=== PATIENT | male | born 1945 | race Caucasian/White ===

== ENCOUNTER 2020-04-04 14:57 | Inpatient (IN) | payer MEDICARE, OTHER ==
[~2020-04-04] VITALS: Ht 172.7 cm; Wt 64.4 kg
--- NOTE | 2020-04-04 15:15 | NUR ---
SIDDHARTH FROM [facility] C/O SOB 70S ON ROOM AIR, 90S ON 15LPM VIA NRB. vs checked. hooked on monitor. iv access started. blood draw done. urine collected sent to lab.
[2020-04-04] MEDS ORDERED: AMLO-212 PO (15:52)
[2020-04-04] MEDS ORDERED: DOCU-141 PO (15:52)
[2020-04-04] MEDS ORDERED: THIA100T88 PO (15:52)
[2020-04-04] MEDS ORDERED: CHOL100040 PO (15:52)
[2020-04-04] MEDS ORDERED: HYDR-4384 PO (15:52)
[2020-04-04] MEDS ORDERED: ACET-868 PO (15:52)
[2020-04-04] MEDS ORDERED: ASCO-352 PO (15:52)
[2020-04-04] MEDS ORDERED: CARV6.252 PO (15:52)
[2020-04-04] MEDS ORDERED: IPRA4AER IH (15:52)
[2020-04-04] MEDS ORDERED: NA P133E RC (15:52)
[2020-04-04] MEDS ORDERED: ATOR10TA PO (15:52)
[2020-04-04] MEDS ORDERED: MAGN400O6 PO (15:52)
[2020-04-04] MEDS ORDERED: ALBU1.257 IH (15:52)
[2020-04-04] MEDS ORDERED: CLOP75TA15 PO (15:52)
[2020-04-04] MEDS ORDERED: PANT40TA2 PO (15:52)
[2020-04-04] MEDS ORDERED: HYDR-500 PO (15:52)
[2020-04-04] MEDS ORDERED: CRAN425C6 PO (15:52)
[2020-04-04] MEDS ORDERED: OMEG1CAP PO (15:52)
[2020-04-04] MEDS ORDERED: ASPI-1169 PO (15:52)
[2020-04-04] MEDS ORDERED: MULT-447 PO (15:52)
[2020-04-04] MEDS ORDERED: QUERCETIN DIHYDRATE PO (15:52)
[2020-04-04] MEDS ORDERED: LEVO500T90 PO (15:52)
[2020-04-04 16:06] LABS: BASOPHILS # (AUTO) 0.3 /CMM (0.0-0.2); BASOPHILS % (AUTO) 1.8 % (0.0-2.0); EOSINOPHILS % (AUTO) 1.5 % (0.0-6.0); HEMATOCRIT 34 % (39-51); HEMOGLOBIN 10.7 g/dL (13.5-17.5); LYMPHOCYTES % (AUTO) 6.8 % (20.0-44.0); MEAN CORPUSCULAR HGB CONC 31 g/dl (31.0-36.0); MEAN CORPUSCULAR VOLUME 86 fL (80-96); MONOCYTES # (AUTO) 0.9 /CMM (0.1-1.30); NEUTROPHILS # (AUTO) 12.7 /CMM (1.8-8.9); NEUTROPHILS % (AUTO) 83.9 % (43.0-81.0); PLATELET COUNT (AUTO) 359 /CMM (150-450); RED BLOOD CELL COUNT(AUTO) 3.96 MIL/uL (4.5-6.0); WHITE BLOOD COUNT (AUTO) 15.1 K/uL (4.3-11.0)
[2020-04-04 16:21] LABS: CALCIUM, SERUM 9.3 mg/dL (8.5-10.1); CARBON DIOXIDE 28 mmol/L (21-32); CHLORIDE 103 mmol/L (98-107); CREATININE 1.4 mg/dL (0.6-1.3); GLUCOSE 154 mg/dL (74-106); POTASSIUM 4.1 mmol/L (3.5-5.1); SODIUM SERUM 141 mmol/L (136-145); UREA NITROGEN, BLOOD 31 mg/dL (7-18)
[2020-04-04] MEDS ORDERED: CEFTRIAXONE 1GM BAG (ER ONLY) 1 GM/50 ML PIGGYBACK IV ONE (16:30)
[2020-04-04] MEDS ORDERED: AZITHROMYCIN 500 MG in IV D5W 250 ML IV ONE (16:30)
[2020-04-04 16:34] LABS: ALANINE AMINOTRANSFERASE 16 U/L (12-78); ALBUMIN 2.1 g/dL (3.4-5.0); ALKALINE PHOSPHATASE 69 U/L (46-116); ASPARTATE AMINOTRANSFERASE 14 U/L (15-37); B-TYPE NATRIURETIC PEPTIDE 609 PG/ML (0-125); BILIRUBIN,DIRECT 0.1 mg/dL (0.0-0.2); BILIRUBIN,TOTAL 0.3 mg/dL (0.2-1.0); TOTAL PROTEIN, SERUM 9.1 g/dL (6.4-8.2)
[2020-04-04 17:09] LABS: CREATINE KINASE, TOTAL 123 U/L (39-308); FERRITIN 798 ng/mL (8-388)
[2020-04-04 17:15] LABS: C-REACTIVE PROTEIN 14.4 mg/dL (0.0-0.9)
[2020-04-04 17:23] LABS: D-DIMER 5.22 mg/L(FEU (0.17-0.50)
--- NOTE | 2020-04-04 17:23 | NUR ---
DAUGHTER CARMITA MEDEROS [phone]
--- NOTE | 2020-04-04 19:05 | NUR ---
REC'D REPORT FROM APRIL PAYNE. PT BIBRA FROM SNF C/O SOB AND O2 IN THE 70S RA. PT ON 15L NRB 90S. PT APPEARS PALE WITH SOME SHORTNESS OF BREATH. PT PLACED IN AN UPRIGHT POSITION AND CONNECTED TO MONITOR AND POX. PT HAS LEFT HAND 18G AND RT AC 18G. PT MADE COMFORTABLE WITH BLANKET AND CALL LIGHT WITHIN REACH. WILL CONTINUE TO MONITOR.
--- NOTE | 2020-04-04 19:20 | NUR ---
report given to sherrill bernard for altagracia
--- NOTE | 2020-04-04 19:43 | NUR ---
covid swab and influenza swab done sent to lab
--- NOTE | 2020-04-04 19:43 | NUR ---
REC'D ORDERS FROM DR RUBALCAVA.
[2020-04-04] MEDS ORDERED: IV NS 0.9% 500 ML BAG IV ONE (20:00)
--- NOTE | 2020-04-04 20:28 | NUR ---
FOLLOWED UP WITH LAB ABOUT COVID SWAB COMPREHENSIVE ADVISOR
[2020-04-04] MEDS ORDERED: IV D5/ 0.9% NACL 1,000 ML IV ONE (21:00)
[2020-04-04] MEDS ORDERED: ENOXAPARIN SODIUM 40 MG/0.4 ML DISP.SYRIN SQ SCH (21:00)
[2020-04-04] MEDS ORDERED: PIPERACILLIN /TAZOBACTAM 3.375 G VIAL IV ONE (21:06)
[2020-04-04 21:26] LABS: BASOPHILS # (AUTO) 0.1 /CMM (0.0-0.2); BASOPHILS % (AUTO) 0.3 % (0.0-2.0); EOSINOPHILS % (AUTO) 0.6 % (0.0-6.0); HEMATOCRIT 31 % (39-51); HEMOGLOBIN 9.6 g/dL (13.5-17.5); LYMPHOCYTES # (AUTO) 0.8 /CMM (0.8-4.8); LYMPHOCYTES % (AUTO) 4.1 % (20.0-44.0); MEAN CORPUSCULAR HGB CONC 31 g/dl (31.0-36.0); MEAN CORPUSCULAR VOLUME 87 fL (80-96); MONOCYTES % (AUTO) 5.4 % (2.0-12.0); NEUTROPHILS # (AUTO) 16.8 /CMM (1.8-8.9); NEUTROPHILS % (AUTO) 89.6 % (43.0-81.0); PLATELET COUNT (AUTO) 289 /CMM (150-450); RED BLOOD CELL COUNT(AUTO) 3.57 MIL/uL (4.5-6.0); WHITE BLOOD COUNT (AUTO) 18.8 K/uL (4.3-11.0)
[2020-04-04 21:36] LABS: CALCIUM, SERUM 8.2 mg/dL (8.5-10.1); CREATININE 1.1 mg/dL (0.6-1.3); POTASSIUM 3.8 mmol/L (3.5-5.1)
[2020-04-04] MEDS: PANTOPRAZOLE 40 MG VIAL IV SCH (22:15)
[2020-04-04] MEDS: ZOSYN IVPB 3.375 G in IV D5W 50ml IV SCH (23:45)
[2020-04-05] MEDS ORDERED: PIPERACILLIN /TAZOBACTAM 3.375 G in IV D5W 50 ML IV SCH ×2
[2020-04-05] MEDS ORDERED: PIPERACILLIN /TAZOBACTAM 3.375 G VIAL IV ONE (06:00)
[2020-04-05] MEDS: ZOSYN IVPB 3.375 G in IV D5W 50ml IV SCH (06:15)
--- NOTE | 2020-04-05 07:22 | NUR ---
GAVE REPORT TO APRIL SANCHEZ FOR LOLITA
[2020-04-05] MEDS ORDERED: PANTOPRAZOLE 40 MG VIAL ONE (09:21)
[2020-04-05] MEDS: PANTOPRAZOLE 40 MG VIAL IV SCH (09:22)
[2020-04-05] MEDS ORDERED: NA PHOS,M-B/NA PHOS,DI-BA 1 EA ENEMA RC PRN (12:00)
[2020-04-05] MEDS ORDERED: MAGNESIUM HYDROXIDE 30 ML UDC PO PRN (12:00)
[2020-04-05] MEDS ORDERED: hydrOXYzine PAMOATE 25 MG CAPSULE PO PRN (12:00)
[2020-04-05] MEDS: PIPERACILLIN /TAZOBACTAM 3.375 G in IV D5W 100 ML IV SCH ×2 (14:30→21:03)
--- NOTE | 2020-04-05 14:35 | NUR ---
pt to radiology for ir guided percutaneuos drainage via gurney.
[2020-04-05] MEDS: CARVEDILOL 6.25 MG TABLET PO SCH (17:18)
[2020-04-05] MEDS: DOCUSATE SODIUM 100 MG CAPSULE PO SCH (17:18)
--- NOTE | 2020-04-05 19:35 | NUR ---
PT RESTING COMFORTABLY IN BED. VITAL SIGNS STABLE. RESPIRATIONS EVEN AND UNLABORED. STILL ON 15L NONREBREATHER, O2 SAT 100%. NO ACUTE DISTRESS NOTED AT THIS TIME. WILL CONTINUE TO MONITOR
--- NOTE | 2020-04-05 19:35 | NUR ---
report given to charge nurse martha for altagracia.
[2020-04-05] MEDS: ATORVASTATIN 10 MG TABLET PO SCH (21:01)
[2020-04-05] MEDS ORDERED: ATORVASTATIN 40 MG TABLET ONE (21:12)
[2020-04-06 03:55] LABS: BASOPHILS # (AUTO) 0.1 /CMM (0.0-0.2); BASOPHILS % (AUTO) 0.6 % (0.0-2.0); EOSINOPHILS % (AUTO) 7.3 % (0.0-6.0); HEMATOCRIT 31 % (39-51); HEMOGLOBIN 9.6 g/dL (13.5-17.5); LYMPHOCYTES # (AUTO) 1.9 /CMM (0.8-4.8); LYMPHOCYTES % (AUTO) 20.4 % (20.0-44.0); MEAN CORPUSCULAR HGB CONC 31 g/dl (31.0-36.0); MEAN CORPUSCULAR VOLUME 87 fL (80-96); MONOCYTES # (AUTO) 0.5 /CMM (0.1-1.30); MONOCYTES % (AUTO) 5.8 % (2.0-12.0); NEUTROPHILS # (AUTO) 6.1 /CMM (1.8-8.9); NEUTROPHILS % (AUTO) 65.9 % (43.0-81.0); PLATELET COUNT (AUTO) 293 /CMM (150-450); RED BLOOD CELL COUNT(AUTO) 3.51 MIL/uL (4.5-6.0); WHITE BLOOD COUNT (AUTO) 9.3 K/uL (4.3-11.0)
[2020-04-06 04:10] LABS: CALCIUM, SERUM 8.9 mg/dL (8.5-10.1); CREATININE 1.1 mg/dL (0.6-1.3); POTASSIUM 4.1 mmol/L (3.5-5.1)
[2020-04-06] MEDS: PIPERACILLIN /TAZOBACTAM 3.375 G in IV D5W 100 ML IV SCH ×3 (05:48→21:32)
--- NOTE | 2020-04-06 06:29 | NUR ---
pt was cleaned and dried. repositioned and mepilex applied on the sacrococcyx area. HOB elevated. remained on monitor w/ stable VS. will cont to monitor
[2020-04-06] MEDS ORDERED: PANTOPRAZOLE 40 MG VIAL ONE (08:19)
[2020-04-06] MEDS: CARVEDILOL 6.25 MG TABLET PO SCH ×2 (08:40→17:00)
[2020-04-06] MEDS: ASPIRIN 81 MG TAB.CHEW PO SCH (08:40)
[2020-04-06] MEDS: DOCUSATE SODIUM 100 MG CAPSULE PO SCH ×2 (08:40→17:00)
[2020-04-06] MEDS: PANTOPRAZOLE 40 MG VIAL IV SCH (08:40)
[2020-04-06] MEDS: THIAMINE HCL 100 MG TABLET PO SCH (08:41)
[2020-04-06] MEDS: ASCORBIC ACID 500 MG TABLET PO SCH (08:41)
[2020-04-06] MEDS: AMLODIPINE BESYLATE 5 MG TABLET PO SCH (08:41)
[2020-04-06] MEDS ORDERED: CLOPIDOGREL BISULFATE 75 MG TABLET PO SCH (09:00)
--- NOTE | 2020-04-06 12:25 | NUR ---
SPOKE TO DR. MARTINEZ, SPEECH THERAPIST RECOMMEND NPO FOR FOOD DUE TO PATIENT BEING ON A NRB MASK, AND PATIENT DESATS TO 80S WHEN REMOVED. NECTAR THICK LIQUID TO BE MIXED WITH WATER. RECEIVED ORDER FROM DR. MARTINEZ TO GIVE NS 75@ML/HR PRN.
--- NOTE | 2020-04-06 12:51 | NUR ---
patient came back from CT.
--- NOTE | 2020-04-06 13:13 | NUR ---
RIGHT PLEURAL SPECIMEN SENT TO LAB.
[2020-04-06] MEDS: IV NS 0.9% 1,000 ML IV PRN (13:57)
--- NOTE | 2020-04-06 14:17 | NUR ---
PATIENT RESTING, NO DISTRESS NOTED, VITALS STABLE. PLEURAL VAC IN PLACED AND DRAINING.
--- NOTE | 2020-04-06 19:22 | NUR ---
PATIENT RESTING, NO DISTRESS NOTED.
--- NOTE | 2020-04-06 19:30 | NUR ---
rec'd pt in bed, on non rbr 15l, sat 96-98%, not in any distress, denies any sob. pt on thickened liquids for aspiration precaution. vsbhaskar, eddie. wctm
[2020-04-06] MEDS: ATORVASTATIN 10 MG TABLET PO SCH (21:31)
[2020-04-07] MEDS: PIPERACILLIN /TAZOBACTAM 3.375 G in IV D5W 100 ML IV SCH ×3 (06:38→21:42)
--- NOTE | 2020-04-07 07:16 | NUR ---
no acute events noted. cont meds as ordered. -sob. vss. wctm
[2020-04-07] MEDS: ASPIRIN 81 MG TAB.CHEW PO SCH (08:02)
[2020-04-07] MEDS: ASCORBIC ACID 500 MG TABLET PO SCH (08:02)
[2020-04-07] MEDS: THIAMINE HCL 100 MG TABLET PO SCH (08:02)
[2020-04-07] MEDS: DOCUSATE SODIUM 100 MG CAPSULE PO SCH ×2 (08:02→17:24)
[2020-04-07] MEDS: AMLODIPINE BESYLATE 5 MG TABLET PO SCH (08:03)
[2020-04-07] MEDS: CARVEDILOL 6.25 MG TABLET PO SCH ×3 (08:03→18:03)
--- NOTE | 2020-04-07 08:03 | NUR ---
PATIENT A/OX2, ON 15LPM VIA NRB WITH SPO2 OF 100%, WILL ATTEMPT TO WEAN PATIENTS OXYGEN, STILL NPO AT THIS TIME, THICK LIQUIDS ONLY FOR ORAL GRAT. NEEDS ATTENDED. PLEURAL VAC INTACT AND DRAINING.
[2020-04-07] MEDS ORDERED: PANTOPRAZOLE 40 MG VIAL ONE (08:28)
[2020-04-07] MEDS: PANTOPRAZOLE 40 MG VIAL IV SCH (09:04)
--- NOTE | 2020-04-07 09:09 | NUR ---
PATIENT NOTED TO HAVE AN OUTPUT OF 35CC ON HIS PLEURAL VAC. PERICARE PROVIDED, PATIENT ABLE TO TURN HIMSELF WITH PROMPT.
--- NOTE | 2020-04-07 10:19 | NUR ---
PATIENT SEEN AND EXAMINED BY DR. MUNGUIA. PATIENT TITRATED DOWN TO 6LPM VIA NC WITH SPO2 OF 95-96%. PATIENT APPEARS TO BE MORE COMFORTABLE.
[2020-04-07] MEDS ORDERED: CLOPIDOGREL BISULFATE 75 MG TABLET ONE (13:22)
[2020-04-07] MEDS: CLOPIDOGREL BISULFATE 75 MG TABLET PO SCH (13:24)
[2020-04-07] MEDS ORDERED: HYDROCODONE/APAP 5/325MG TABLET ONE ×2 (13:58→23:45)
[2020-04-07] MEDS: HYDROCODONE/APAP 5/325MG TABLET PO PRN ×2 (14:00→23:56)
--- NOTE | 2020-04-07 15:20 | NUR ---
PATIENT NOTED TO HAVE ADDITIONAL 50CC OF OUTPUT ON PLEURA VAC.
--- NOTE | 2020-04-07 16:36 | NUR ---
PATIENT TOLERATING 6LPM VIA NC, PULSE OX SHOWS 95%.PATIENT ABLE TO TOLERATE CRUSHED MEDS WITH APPLE SAUCE. NO S/SX OF ASPIRATION NOTED.
[2020-04-07] MEDS ORDERED: CARVEDILOL 6.25 MG TABLET ONE (17:20)
--- NOTE | 2020-04-07 17:38 | NUR ---
PATIENT NOTED TO HAVE LOW O2 SAT (80S) WHILE SLEEPING WITH THE NASAL CANNULA. PLACED BACK ON 15LPM VIA NRB MASK WITH SPO2 OF 90% AT THIS TIME.
--- NOTE | 2020-04-07 18:03 | NUR ---
PATIENT'S PULSE OX MONITOR NOTED TO BE OFF THE PATIENT, PATIENT PLACED BACK ON 6LPM VIA NC WITH SPO2 OF 99%. NO DISTRESS NOTED. NEEDS ATTENDED. PERICARE PROVIDED AND PROMPTED TO TURN. PLEURA VAC STILL INTACT AND DRAINING WELL.
--- NOTE | 2020-04-07 19:30 | NUR ---
REC'D PT IN BED AWAKE AND RESPONSIVE. BREATHING EVENLY . ON SUPPLEMENTAL O2 VIA NC. CHATO WELL. NO C/O SOB. NO C/O PAIN OR DISCOMFORT .S/P THORACENTHESIS W/ NO COMPLICATIONS AT THIS TIME. REMAINED ON MONITOR,
[2020-04-07] MEDS: ATORVASTATIN 10 MG TABLET PO SCH (21:42)
--- NOTE | 2020-04-07 23:56 | NUR ---
NORCO GIVE ORDERED . PER PT'S REQUEST FOR C/O PAIN . WILL CONT TO MONITOR
[2020-04-08] MEDS: IV NS 0.9% 1,000 ML IV PRN (00:42)
[2020-04-08] MEDS: PIPERACILLIN /TAZOBACTAM 3.375 G in IV D5W 100 ML IV SCH ×3 (04:33→22:13)
--- NOTE | 2020-04-08 05:58 | NUR ---
pt was cleaned and dried/ good skin care and pericare provided . repositioned .will cont to monitor
[2020-04-08 06:20] LABS: BASOPHILS # (AUTO) 0.1 /CMM (0.0-0.2); EOSINOPHILS % (AUTO) 5.7 % (0.0-6.0); HEMATOCRIT 32 % (39-51); LYMPHOCYTES # (AUTO) 1.8 /CMM (0.8-4.8); LYMPHOCYTES % (AUTO) 26.1 % (20.0-44.0); MEAN CORPUSCULAR HGB CONC 32 g/dl (31.0-36.0); MEAN CORPUSCULAR VOLUME 86 fL (80-96); MONOCYTES # (AUTO) 0.4 /CMM (0.1-1.30); MONOCYTES % (AUTO) 5.8 % (2.0-12.0); NEUTROPHILS # (AUTO) 4.3 /CMM (1.8-8.9); NEUTROPHILS % (AUTO) 61.4 % (43.0-81.0); PLATELET COUNT (AUTO) 277 /CMM (150-450); RED BLOOD CELL COUNT(AUTO) 3.68 MIL/uL (4.5-6.0)
[2020-04-08 06:27] LABS: CALCIUM, SERUM 8.9 mg/dL (8.5-10.1); CARBON DIOXIDE 26 mmol/L (21-32); CHLORIDE 105 mmol/L (98-107); CREATININE 0.8 mg/dL (0.6-1.3); GLUCOSE 64 mg/dL (74-106); MAGNESIUM 1.9 mg/dL (1.8-2.4); POTASSIUM 3.9 mmol/L (3.5-5.1); SODIUM SERUM 140 mmol/L (136-145); UREA NITROGEN, BLOOD 11 mg/dL (7-18)
--- NOTE | 2020-04-08 06:33 | NUR ---
report given to Analisa at [facility]
--- NOTE | 2020-04-08 06:58 | NUR ---
pt was transferred to 102 under acls
[2020-04-08 08:00] VITALS: BP 133/81
--- NOTE | 2020-04-08 08:00 | NUR ---
RECEIVED PATIENT IN BED. NO ACUTE DISTRESS NOTED. PATIENT ALERT & ORIENTED X2-3. PATIENT ON NASAL CANULA, 4L SATURATING WELL. PATIENT ON COMBINER OPERATOR, NSR NOTED. PATIENT L HAND #18 INTACT, FLUSHED WELL. PATIENT SAFETY MEASURES MAINTAINED. CALL LIGHT WITHIN REACH. WILL CONTINUE TO MONITOR.
[2020-04-08] MEDS: THIAMINE HCL 100 MG TABLET PO SCH (09:00)
[2020-04-08] MEDS: DOCUSATE SODIUM 100 MG CAPSULE PO SCH ×2 (09:00→16:14)
[2020-04-08] MEDS: CLOPIDOGREL BISULFATE 75 MG TABLET PO SCH (09:00)
[2020-04-08] MEDS: AMLODIPINE BESYLATE 5 MG TABLET PO SCH (09:00)
[2020-04-08] MEDS: ASCORBIC ACID 500 MG TABLET PO SCH (09:00)
[2020-04-08] MEDS: ASPIRIN 81 MG TAB.CHEW PO SCH (09:00)
[2020-04-08] MEDS: CARVEDILOL 6.25 MG TABLET PO SCH ×2 (09:00→16:14)
[2020-04-08] MEDS: PANTOPRAZOLE 40 MG VIAL IV SCH (09:39)
[2020-04-08 12:00] VITALS: BP 137/80
--- NOTE | 2020-04-08 12:03 | NUR ---
[phone] notified re; patient's chest tube reassess stated that will see him tomorrow per requested
[2020-04-08 16:00] VITALS: BP 130/81
--- NOTE | 2020-04-08 18:21 | NUR ---
PATIENT IN BED. NO ACUTE DISTRESS NOTED. PATIENT ALERT & ORIENTED X2-3. PATIENT ON NASAL CANULA, 4L SATURATING WELL. PATIENT ON TRACK ANNOUNCER, NSR NOTED. PATIENT CHEST TUBE IN PLACE ON RIGHT SIDE, CONNECTED TO SUCTION. PATIENT L HAND #18 INTACT, FLUSHED WELL. PATIENT SAFETY MEASURES MAINTAINED. CALL LIGHT WITHIN REACH. WILL ENDORSE PLAN OF CARE TO ONCOMING SHIFT
[2020-04-08 20:00] VITALS: BP 136/83
[2020-04-08] MEDS: ATORVASTATIN 10 MG TABLET PO SCH (22:06)
[2020-04-09] VITALS: BP 115/80
[2020-04-09] MEDS: IV NS 0.9% 1,000 ML IV PRN ×2 (01:52→17:03)
[2020-04-09 04:00] VITALS: BP 120/79
[2020-04-09] MEDS: PIPERACILLIN /TAZOBACTAM 3.375 G in IV D5W 100 ML IV SCH ×3 (05:18→21:10)
[2020-04-09 06:43] LABS: BASOPHILS # (AUTO) 0.1 /CMM (0.0-0.2); EOSINOPHILS % (AUTO) 4.3 % (0.0-6.0); HEMATOCRIT 30 % (39-51); HEMOGLOBIN 9.6 g/dL (13.5-17.5); LYMPHOCYTES % (AUTO) 29.3 % (20.0-44.0); MEAN CORPUSCULAR HGB CONC 32 g/dl (31.0-36.0); MEAN CORPUSCULAR VOLUME 86 fL (80-96); MONOCYTES # (AUTO) 0.5 /CMM (0.1-1.30); MONOCYTES % (AUTO) 6.9 % (2.0-12.0); NEUTROPHILS # (AUTO) 3.9 /CMM (1.8-8.9); NEUTROPHILS % (AUTO) 58.5 % (43.0-81.0); PLATELET COUNT (AUTO) 271 /CMM (150-450); RED BLOOD CELL COUNT(AUTO) 3.56 MIL/uL (4.5-6.0); WHITE BLOOD COUNT (AUTO) 6.7 K/uL (4.3-11.0)
[2020-04-09 06:58] LABS: CALCIUM, SERUM 8.4 mg/dL (8.5-10.1); CARBON DIOXIDE 24 mmol/L (21-32); CHLORIDE 104 mmol/L (98-107); CREATININE 0.8 mg/dL (0.6-1.3); GLUCOSE 68 mg/dL (74-106); POTASSIUM 2.9 mmol/L (3.5-5.1); SODIUM SERUM 142 mmol/L (136-145); UREA NITROGEN, BLOOD 8 mg/dL (7-18)
--- NOTE | 2020-04-09 07:03 | NUR ---
IV ACCESS IN RAC DISLODGED, PRESSURE APPLIED, SECURED WITH GAUZE AND TAPE. NO SIGN OF BLEEDING OR INFILTRATION NOTED. WILL CONTINUE TO MONITOR
--- NOTE | 2020-04-09 07:03 | NUR ---
RN OPENING NOTES RECEIVED PT AWAKE AT THIS TIME. PT IS ALERT ORIENTED X3. NO SOB NOTED, NO S/S OF ANY APPARENT DISTRESS NOTED. NO C/O PAIN NOTED AT THIS TIME. RESPIRATIONS ARE EVEN AND UNLABORED WITH EQUAL RISE AND FALL IN CHEST. PT NOTED ON OXYGEN 4LPM VIA NC. PT ON EXTERNAL COMMERCIAL INTERIOR DESIGNER READING SR IN THE 60s. RIGHT CHEST TUBE NOTED WITH NO OUTPUT. IV ACCESS NOTED IN LEFT HAND G#18, INTACT, PATENT AND FLUSHING WELL. ASPIRATION AND SAFETY PRECAUTION IN PLACE AND MAINTAINED AT ALL TIMES. BED IN LOWEST LOCKED POSITION, HOB ELEVATED, SIDE RAILS UP X 2, CALL LIGHT AND TABLE WITHIN REACH. WILL CONTINUE TO MONITOR
[2020-04-09 08:00] VITALS: BP 133/82
[2020-04-09] MEDS: AMLODIPINE BESYLATE 5 MG TABLET PO SCH (09:00)
[2020-04-09] MEDS: CLOPIDOGREL BISULFATE 75 MG TABLET PO SCH (09:00)
[2020-04-09] MEDS: ASPIRIN 81 MG TAB.CHEW PO SCH (09:00)
[2020-04-09] MEDS: ASCORBIC ACID 500 MG TABLET PO SCH (09:00)
[2020-04-09] MEDS: THIAMINE HCL 100 MG TABLET PO SCH (09:00)
[2020-04-09] MEDS: CARVEDILOL 6.25 MG TABLET PO SCH ×2 (09:00→16:57)
[2020-04-09] MEDS: DOCUSATE SODIUM 100 MG CAPSULE PO SCH ×2 (09:00→16:57)
[2020-04-09] MEDS ORDERED: POTASSIUM CL. PREMIX PERIPHER. 50 ML IV SCH (09:30)
[2020-04-09] MEDS: PANTOPRAZOLE 40 MG VIAL IV SCH (09:58)
[2020-04-09] MEDS: POTASSIUM CHLORIDE 10 MEQ/50 ML PREMIXED IVPB FOR PERIPHERAL LINE IV SCH ×2 (09:58→11:02)
[2020-04-09 12:00] VITALS: BP 112/79
[2020-04-09 16:00] VITALS: BP 121/76
--- NOTE | 2020-04-09 18:34 | NUR ---
RN CLOSING NOTES PT AWAKE IN BED AT THIS TIME. PT REMAINED STABLE THROUGHOUT SHIFT. ALL CARE, NEED, MEDICATIONS AND TREATMENT ADMINISTERED ANTICIPATED PER ORDER. PT KEPT CLEAN AND DRY. PT REPOSITIONED Q2HR AND PRN. CHEST TUBE CARE PROVIDED. PT SUCTIONED PRN. ASPIRATION AND SAFETY PRECAUTION IN PLACE AND MAINTAINED AT ALL TIMES. BED IN LOWEST LOCKED POSITION, HOB ELEVATED, SIDE RAILS UP X 2, CALL LIGHT AND TABLE WITHIN REACH. WILL ENDORSE TO PANEL SAW OPERATOR NURSE FOR LOLITA
--- NOTE | 2020-04-09 19:48 | NUR ---
RN NOTES PATIENT A/O X3. NO SOB NOTED, NO S/S OF ANY APPARENT DISTRESS NOTED. DENIES ANY PAIN AT THIS TIME. PT NOTED ON OXYGEN 4LPM VIA NC. TELE MONITOR ON, SR IN THE 60s. RIGHT CHEST TUBE NOTED PATENT AND INTACT. IV ACCESS NOTED IN LEFT HAND G#18, INTACT, PATENT AND FLUSHING WELL. ASPIRATION AND SAFETY PRECAUTION IN PLACE AND MAINTAINED AT ALL TIMES. BED LOCKED AND IN LOWEST POSITION. CALL LIGHT WITHIN REACH. WILL CONTINUE TO MONITOR.
[2020-04-09 20:00] VITALS: BP 132/75
[2020-04-09] MEDS: ATORVASTATIN 10 MG TABLET PO SCH (21:10)
--- NOTE | 2020-04-09 22:30 | NUR ---
TRANSFERRED PATIENT TO ROOM 310, A/O X2-3. NO SOB OR ANY RESPIRATORY DISTRESS. GAVE REPORT TO JAMI FOR LOLITA.
[2020-04-10] MEDS: HYDROCODONE/APAP 5/325MG TABLET PO PRN (03:10)
[2020-04-10] MEDS: PIPERACILLIN /TAZOBACTAM 3.375 G in IV D5W 100 ML IV SCH ×3 (05:15→20:45)
[2020-04-10 06:42] LABS: CALCIUM, SERUM 8.3 mg/dL (8.5-10.1); CREATININE 0.8 mg/dL (0.6-1.3)
[2020-04-10 06:53] LABS: POTASSIUM 2.8 mmol/L (3.5-5.1)
--- NOTE | 2020-04-10 07:12 | NUR ---
At 2200Pm resident transferred From [facility] unit [facility] Chest Tube, DX: Pneumonia, Alert x 3. At 0700Am Lab Reported Potassium Level 2.8, Endorsed To Next Shift.
[2020-04-10 08:00] VITALS: BP 102/61
[2020-04-10] MEDS: AMLODIPINE BESYLATE 5 MG TABLET PO SCH (09:00)
--- NOTE | 2020-04-10 10:30 | NUR ---
dr. spears in,requesting rn contact dr. rivero to add tpa to chest tube.rn contacted dr. rivero immediately.
[2020-04-10] MEDS: PANTOPRAZOLE 40 MG TABLET.DR PO SCH (10:54)
[2020-04-10] MEDS: ASCORBIC ACID 500 MG TABLET PO SCH (10:54)
[2020-04-10] MEDS: ASPIRIN 81 MG TAB.CHEW PO SCH (10:54)
[2020-04-10] MEDS: CLOPIDOGREL BISULFATE 75 MG TABLET PO SCH (10:54)
[2020-04-10] MEDS: THIAMINE HCL 100 MG TABLET PO SCH (10:55)
[2020-04-10] MEDS: CARVEDILOL 6.25 MG TABLET PO SCH ×2 (10:55→16:58)
[2020-04-10] MEDS: DOCUSATE SODIUM 100 MG CAPSULE PO SCH ×2 (10:57→16:57)
[2020-04-10] MEDS: POTASSIUM CHLORIDE 20 MEQ TAB.PRT.SR PO SCH ×3 (10:59→13:58)
--- NOTE | 2020-04-10 13:30 | NUR ---
dr. rivero in and states he flushed chest tube with saline only.states he will contact dr. spears and inform him.
[2020-04-10 16:00] VITALS: BP 110/72
--- NOTE | 2020-04-10 18:03 | NUR ---
no chg. in status.
[2020-04-10] MEDS: IV NS 0.9% 1,000 ML IV PRN (19:10)
[2020-04-10 20:00] VITALS: BP 135/79
--- NOTE | 2020-04-10 20:00 | NUR ---
TELE MARKETER INITIAL NOTES PATIENT SEEN IN BED AWAKE AND A/O X3. NO SOB NOTED, NO S/S OF ANY APPARENT DISTRESS NOTED. DENIES ANY PAIN AT THIS TIME. PT NOTED ON OXYGEN 4LPM VIA NC. TELE MONITOR ON, SR IN THE 77, RIGHT CHEST TUBE NOTED PATENT AND INTACT. IV FLUID INFUSING ON HIS RIGHT FOREARM INTACT, PATENT AND FLUSHING WELL. ASPIRATION AND SAFETY PRECAUTION IN PLACE AND MAINTAINED AT ALL TIMES. BED LOCKED AND IN LOWEST POSITION. CALL LIGHT WITHIN REACH. WILL CONTINUE TO MONITOR.
[2020-04-10] MEDS: ATORVASTATIN 10 MG TABLET PO SCH (22:32)
[2020-04-11] VITALS: BP_SYST 123; BP_SYST 128; BP_DIAS 60; BP_DIAS 71
[2020-04-11 04:00] VITALS: BP 130/72
[2020-04-11] MEDS: PIPERACILLIN /TAZOBACTAM 3.375 G in IV D5W 100 ML IV SCH ×3 (05:22→21:23)
--- NOTE | 2020-04-11 07:30 | NUR ---
TELE LASTING MACHINE OPERATOR CLOSING NOTES' MORNING CARE DONE AND PT BACK TO REST . NO SIGNS OF ANY DISCOMFORT AND ANY ACUTE DISTRESS NOTED . ALL DUE MEDS GIVEN AND ALL NEEDS MET. BLOODS SUGAR CHECKED DONE 173, 3 UNITS OF INSULIN GIVEN NILS SQ ORDERED. KEPT HIM WARM AND COMFORTABLE AT ALL TIMES. WILL ENDORSE TO AM NURSE FOR CONTINUITY OF CARE. PLACE CALL LIGHT AT REACH. Addendum: 04/11/20 at 0822 by DIMA HERNANDEZ LVN DISREGARD BELONGS TO DIFF. PT
[2020-04-11 07:48] LABS: CALCIUM, SERUM 8.4 mg/dL (8.5-10.1); CREATININE 0.8 mg/dL (0.6-1.3); POTASSIUM 3.3 mmol/L (3.5-5.1)
--- NOTE | 2020-04-11 07:50 | NUR ---
TELE CHANGE CONTROL COORDINATOR CLOSING NOTES' PT BACK TO SLEEP AFTER MORNING CARE DONE. NOT IN ANY ACUTE DISTRESS NOTED. ALL DUE MEDS GIVEN. CHEST TUBE STILL INTACT . PT DENIES ANY PAIN OR ANY DISCOMFORT. KEPT HIM WARM AND COMFORTABLE AT ALL TIMES. STABLE TROUGHOUT THE NIGHT. ENDORSE TO AM NURSE. PLACE CALL LIGHT AT REACH.
--- NOTE | 2020-04-11 07:55 | NUR ---
MS/RN Opening note Patient received from manager shift. Sleeping soundly at this time, appears in no distress or discomfort. IV fluids infusing via right forearm 22g, no signs of infiltration seen. Chest tube noted to right lung, drainage noted to be at 450ml at start of shift, drainage canister marked. Safety measures in place, bed in low setting, side rails X3 in upright position. Bed alarm switched on, call light within reach. Will continue to monitor and ensure safety.
[2020-04-11 08:00] VITALS: BP 115/74
--- NOTE | 2020-04-11 09:00 | NUR ---
MS/RN Medications Morning medications administered as ordered.
[2020-04-11] MEDS: ASCORBIC ACID 500 MG TABLET PO SCH (09:03)
[2020-04-11] MEDS: DOCUSATE SODIUM 100 MG CAPSULE PO SCH ×2 (09:05→17:17)
[2020-04-11] MEDS: ASPIRIN 81 MG TAB.CHEW PO SCH (09:05)
[2020-04-11] MEDS: AMLODIPINE BESYLATE 5 MG TABLET PO SCH (09:05)
[2020-04-11] MEDS: PANTOPRAZOLE 40 MG TABLET.DR PO SCH (09:07)
[2020-04-11] MEDS: CLOPIDOGREL BISULFATE 75 MG TABLET PO SCH (09:07)
[2020-04-11] MEDS: CARVEDILOL 6.25 MG TABLET PO SCH ×2 (09:07→17:18)
[2020-04-11] MEDS: THIAMINE HCL 100 MG TABLET PO SCH (09:07)
--- NOTE | 2020-04-11 09:30 | NUR ---
MS/RN S/B Dr Hernandez Seen by Dr Hernandez - to follow up with thoracic surgeons regarding possible removal of chest tube.
[2020-04-11] MEDS: POTASSIUM CL. PREMIX PERIPHER. 50 ML IV SCH ×2 (09:41→10:21)
--- NOTE | 2020-04-11 11:01 | NUR ---
MS/RN Labs Morning labs reviewed: -Na 138 -K+ 3.3 -BUN 6.0 -Creat 0.8 Addendum: 04/11/20 at 1105 by MATTY BERGERON Potassium repalced with 2gm IVAP
[2020-04-11 12:00] VITALS: BP 101/63
--- NOTE | 2020-04-11 14:00 | NUR ---
MS/RN S/B Dr Mulligan Seen by Dr Mulligan - continue with plavix, lovenox and IVAB. Await final culture results.
[2020-04-11 16:00] VITALS: BP 98/62
[2020-04-11] MEDS ORDERED: ALTEPLASE CATHFLO 2 MG/VIAL IV ONE (16:00)
--- NOTE | 2020-04-11 17:16 | NUR ---
MS/RN S/B Dr Carpenter Seen by Dr Carpenter - chest tube clamped, 10mg alteplase in 30ml normal saline injected into pleural space. Chest tube to be unclamped at 2230.
--- NOTE | 2020-04-11 18:30 | NUR ---
MS/RN End note Patient remains in stable condition. Chest tube remains in place, no further output noted. Chest tube remains clamped, clamp to be removed at 2230. Does not appear to be in any pain or distress. Will endorse to date night sitter.
--- NOTE | 2020-04-11 19:30 | NUR ---
TELE HOUSE SUPERINTENDENT INITIAL NOTES RECEIVED REPORT FROM AM NURSE AND CHECKED THE PT AT THE SAME TIME. HE'S RESTING AT THIS TIME. STILL ON IVF INFUSING AND RIGHT CHEST TUBE THAT IS CLAMPED AT THIS TIME AND PER AM NURSE NEEDS TO UN CLAMP AT 1030 PM. NO SIGNS OF ANY ACUTE DISTRESS NOTED. SKIN WARM TO TOUCH. KEPT HIM WARM AND COMFORTABLE AT ALL TIMES. PLACE CALL LIGHT AT REACH. WILL CONTINUE MONITORING.
[2020-04-11 20:00] VITALS: BP 113/64
[2020-04-11] MEDS: ATORVASTATIN 10 MG TABLET PO SCH (22:05)
[2020-04-11] MEDS: IV NS 0.9% 1,000 ML IV PRN (23:09)
--- NOTE | 2020-04-12 | NUR ---
janitor supervisor notes pt sleeping comfortably in bed without any distress noted.Zosyn IVP bag still infusing, no adverse reaction noted. Chest tube intact and unclamped . kept him warm and comfortable at all times. will continue monitoring.
[2020-04-12 04:00] VITALS: BP 113/64
[2020-04-12] MEDS: PIPERACILLIN /TAZOBACTAM 3.375 G in IV D5W 100 ML IV SCH ×3 (04:44→21:56)
--- NOTE | 2020-04-12 07:27 | NUR ---
MS/RN Opening note Patient received from manager disaster recovery. Sleeping soundly at this time, appears in no distress or discomfort. Chest tube to wall suction noted on right side, drainage at start of shift 500ml. Chest tube container marked. IV fluids infusing at 75ml/hr via right forearm, no signs of infiltration seen. Safety measures in place, bed in low setting, side rails X3 in upright position, bed alarm switched on. Call light within reach, will continue to monitor and ensur safety.
[2020-04-12 08:00] VITALS: BP 104/65
[2020-04-12] MEDS: ASPIRIN 81 MG TAB.CHEW PO SCH (08:14)
[2020-04-12] MEDS: CLOPIDOGREL BISULFATE 75 MG TABLET PO SCH (08:14)
[2020-04-12] MEDS: PANTOPRAZOLE 40 MG TABLET.DR PO SCH (08:14)
[2020-04-12] MEDS: DOCUSATE SODIUM 100 MG CAPSULE PO SCH ×2 (08:15→16:49)
[2020-04-12] MEDS: ASCORBIC ACID 500 MG TABLET PO SCH (08:15)
[2020-04-12] MEDS: CARVEDILOL 6.25 MG TABLET PO SCH ×2 (08:17→16:49)
[2020-04-12] MEDS: AMLODIPINE BESYLATE 5 MG TABLET PO SCH (08:17)
[2020-04-12] MEDS: THIAMINE HCL 100 MG TABLET PO SCH (08:20)
--- NOTE | 2020-04-12 09:00 | NUR ---
MS/RN Medications Morning medications administered as ordered.
--- NOTE | 2020-04-12 11:30 | NUR ---
MS/RN S/B Dr Hernandez Seen by Dr Hernandez - await for chest tube removal and then discharge planning back to SNF.
--- NOTE | 2020-04-12 14:30 | NUR ---
MS/RN Dr Carpenter Order entered by Dr Carpenter for CT chest without contrast.
--- NOTE | 2020-04-12 15:13 | NUR ---
MS/RN CT Patient taken to radiology for CT chest without contrast. Chest tube clamped.
[2020-04-12 16:00] VITALS: BP 115/73
[2020-04-12 18:15] VITALS: BP 115/73
--- NOTE | 2020-04-12 19:22 | NUR ---
MS/ RN CLOSING NOTES PT RESTING IN BED COMFORTABLY. PT CALM AND COOPERATIVE. NO COMPLAINTS OF DISCOMFORT OR DISTRESS. NO SIGNIFICANT CHANGES. PT IN LOW FOWLERS POSITION. BED IS PLACED ON LOWEST POSITION WITH BED ALARM ON. CALL LIGHT IS WITHIN REACH. CHEST TUBE DRAINAGE AT 570 ML. WILL ENDORSE TO CASE FOLDER. WILL CONTINUE PLAN OF CARE.
[2020-04-12 20:00] VITALS: BP 100/62
[2020-04-12] MEDS: ATORVASTATIN 10 MG TABLET PO SCH (21:56)
--- NOTE | 2020-04-12 22:11 | NUR ---
ENGINEERING SPECIALIST NOTES PATENT IN BED, RESTING, ALERT AND ORIENTED X 2-3. BREATHING EVEN AND UNLABORED ON 2L NC. SHOWS NO SIGNS OF ACUTE RESPIRATORY DISTRESS, NO ACUTE PAIN. TELE MONITOR SR/ST. R CHEST TUBE INTACT SUCTIONING RED THICK FLUID. IV ON RA 22G RUNNING NS AT 75ML/HR. SHOWS NO INFILTRATION, NO REDNESS. SAFETY PRECAUTIONS IN PLACE. BED IN LOWEST POSITION, LOCKED, AND CALL LIGHT KEPT WITHIN REACH. WILL CONTINUE TO MONITOR.
[2020-04-13] MEDS: HYDROCODONE/APAP 5/325MG TABLET PO PRN ×2 (03:08→19:57)
[2020-04-13] MEDS: IV NS 0.9% 1,000 ML IV PRN (03:14)
[2020-04-13] MEDS: PIPERACILLIN /TAZOBACTAM 3.375 G in IV D5W 100 ML IV SCH ×3 (04:11→21:30)
--- NOTE | 2020-04-13 06:49 | NUR ---
PHOTO LAB SPECIALIST NOTES PATENT IN BED, ASLEEP, ALERT AND ORIENTED X 2-3. BREATHING EVEN AND UNLABORED ON 2L NC. SHOWS NO SIGNS OF ACUTE RESPIRATORY DISTRESS, NO ACUTE PAIN. TELE MONITOR SR/ST. R CHEST TUBE INTACT SUCTIONING GREENISH THICK FLUID. IV ON RA 22G RUNNING NS AT 75ML/HR. SHOWS NO INFILTRATION, NO REDNESS. ALL DUE MEDICATIONS GIVEN. ALL NEEDS ATTENDED TO. SAFETY PRECAUTIONS IN PLACE. BED IN LOWEST POSITION, LOCKED, AND CALL LIGHT KEPT WITHIN REACH. WILL ENDORSE TO ONCOMING NURSE.
[2020-04-13] MEDS: CLOPIDOGREL BISULFATE 75 MG TABLET PO SCH (08:17)
[2020-04-13] MEDS: PANTOPRAZOLE 40 MG TABLET.DR PO SCH (08:17)
[2020-04-13] MEDS: AMLODIPINE BESYLATE 5 MG TABLET PO SCH (08:17)
[2020-04-13] MEDS: ASPIRIN 81 MG TAB.CHEW PO SCH (08:17)
[2020-04-13] MEDS: THIAMINE HCL 100 MG TABLET PO SCH (08:17)
[2020-04-13] MEDS: DOCUSATE SODIUM 100 MG CAPSULE PO SCH ×3 (08:17→17:00)
[2020-04-13] MEDS: ASCORBIC ACID 500 MG TABLET PO SCH (08:17)
[2020-04-13] MEDS: CARVEDILOL 6.25 MG TABLET PO SCH ×2 (08:18→16:36)
[2020-04-13 08:19] VITALS: BP 122/72
--- NOTE | 2020-04-13 09:42 | NUR ---
MS/ RN OPENING NOTES PATIENT RECEIVED. PT LAYING IN BED. PT ALERT AND ORIENTED X2. RIGHT CHEST TUBE WALL REGULAR/ CONTINUOUS SUCTION. TUBE INTACT SUCTIONING GREENISH FLUID. RIGHT FOREARM 22 G RUNNING NORMAL SALINE AT 75 ML/ HR. PATENT. NO INFILTRATION, NO REDNESS, NO OCCLUSION. FLUSHING WELL. 0800 VITAL SIGNS: 122/ 72, PULSE 73, RESP 20, TEMP 97, PULSE OX 99. PT ON 2L NASAL CANNULA. WILL CONTINUE PLAN OF CARE.
[2020-04-13 13:27] VITALS: BP 113/67
[2020-04-13 16:21] VITALS: BP 115/67
--- NOTE | 2020-04-13 19:10 | NUR ---
MATERIAL COORDINATOR OPENING NOTES RECEIVED PATIENT IN BED AWAKE ALERT AND ORIENTED X3, ABLE TO MAKE SIMPLE NEEDS KNOWN, ON 3 L VIA NC TOLERATING WELL, RESPIRATIONS EVEN AND UNLABORED WITH EQUAL RISE AND FALL OF CHEST, RIGHT CHEST TUBE IN PLACE AND DRAINING, LILLI.SMALLS COLOR NOTED, ON HARNESS WORKER SR 75, IV SITE TO RIGHT FA#22 G INTACT AND PATENT, IVF RUNNING ORDERED, ALL NEEDS ATTENDED WILL CONTINUE TO MONITOR AND ATTEND TO NEEDS.SAFETY PRECAUTIONS MAINTAINED. BED ALARM LOW BED IN PLACE.
--- NOTE | 2020-04-13 19:42 | NUR ---
RN/ MS CLOSING NOTES PT LAYING IN BED COMFORTABLY. ALERT AND ORIENTED X2. PT NO COMPLAINTS, NO SIGNS OF DISCOMFORT OR DISTRESS. PT REQUEST TO CALL DAUGHTER, TIFFANY, IN AM. NO SIGNIFICANT CHANGES. BED IN LOW FOWLERS POSITION. TURNED AND REPOSITIONED. PERFORMED BED BATH. CHEST TUBE DRAINED AT 5 ML. PERFORMED CHEST TUBE CARE WITH NEW DRESSING. WILL ENDORSE TO BOAT OUTFITTING SUPERVISOR. WILL CONTINUE PLAN OF CARE.
[2020-04-13 20:00] VITALS: BP 108/73
--- NOTE | 2020-04-13 20:00 | NUR ---
university intern notes patient complained of generalized pain states "10/13 , can i have norco pain medication?" vital signs assessed wnl, norco prn given and repositioned will continue to monitor.
[2020-04-13] MEDS: ATORVASTATIN 10 MG TABLET PO SCH (21:33)
[2020-04-14] VITALS (11 sets, daily range): BP systolic 108–130; BP diastolic 60–92
[2020-04-14] MEDS: PIPERACILLIN /TAZOBACTAM 3.375 G in IV D5W 100 ML IV SCH ×3 (04:22→21:51)
[2020-04-14] MEDS: IV NS 0.9% 1,000 ML IV PRN (04:29)
--- NOTE | 2020-04-14 06:37 | NUR ---
NON DESTRUCTIVE TESTING SCIENTIST CLOSING NOTES PATIENT IN BED AWAKE ALERT AND ORIENTED X3, ABLE TO MAKE SIMPLE NEEDS KNOWN, ON 3 L VIA NC TOLERATING WELL, RESPIRATIONS EVEN AND UNLABORED WITH EQUAL RISE AND FALL OF CHEST, RIGHT CHEST TUBE IN PLACE AND DRAINING, LILLI.SMALLS COLOR NOTED, 5CC OUTPUT NOTED THROUGHOUT SHIFT, ON FIREBRICK AND REFRACTORY TILE REPAIRER SR 71, IV SITE TO RIGHT FA#22 G INTACT AND PATENT, IVF RUNNING ORDERED, ALL NEEDS ATTENDED WILL CONTINUE TO MONITOR AND ATTEND TO NEEDS.SAFETY PRECAUTIONS MAINTAINED. BED ALARM ON LOW BED IN PLACE. PERINEAL CARE PROVIDED, KEPT CLEAN AND DRY. ALL NEEDS ATTENDED WILL CONTINUE TO MONITOR AND ATTEND TO NEEDS AND ENDORSE TO NEXT SHIFT,NORCO WAS EFFECTIVE.PT SLEPT WELL AND IS ABLE TO SELF REPOSITION.
--- NOTE | 2020-04-14 08:00 | NUR ---
RN OPENING NOTE: PT RESTING IN BED. A&O X 2-3. PT SATURATING AT 97% ON 3L NC. NO SIGNS OF ACUTE DISTRESS. NO COMPLAINTS OF PAIN. CHEST TUBE IS CONNECTED TO PIGTAIL CATHETER. DRAINING PURULENT FLUID. -35 FOR SUCTION. BED IS IN LOWEST POSITION. BED ALARM IS ON. SIDE RAILS X 2. CALL LIGHT IS WITHIN REACH. FALL, SAFETY AND ASPIRATIONS PRECAUTIONS ENFORCED. WILL CONTINUE WITH PLAN OF CARE.
[2020-04-14] MEDS: PANTOPRAZOLE 40 MG TABLET.DR PO SCH (08:16)
[2020-04-14] MEDS: ASPIRIN 81 MG TAB.CHEW PO SCH (08:16)
[2020-04-14] MEDS: DOCUSATE SODIUM 100 MG CAPSULE PO SCH ×2 (08:16→16:03)
[2020-04-14] MEDS: CLOPIDOGREL BISULFATE 75 MG TABLET PO SCH (08:16)
[2020-04-14] MEDS: ASCORBIC ACID 500 MG TABLET PO SCH (08:17)
[2020-04-14] MEDS: THIAMINE HCL 100 MG TABLET PO SCH (08:17)
[2020-04-14] MEDS: CARVEDILOL 6.25 MG TABLET PO SCH ×2 (08:18→16:04)
[2020-04-14] MEDS: AMLODIPINE BESYLATE 5 MG TABLET PO SCH (08:19)
[2020-04-14 13:05] LABS: BASOPHILS % (AUTO) 0.6 % (0.0-2.0); EOSINOPHILS % (AUTO) 8.4 % (0.0-6.0); HEMATOCRIT 34 % (39-51); HEMOGLOBIN 10.5 g/dL (13.5-17.5); MEAN CORPUSCULAR HGB CONC 31 g/dl (31.0-36.0); MEAN CORPUSCULAR VOLUME 87 fL (80-96); MONOCYTES # (AUTO) 0.6 /CMM (0.1-1.30); NEUTROPHILS # (AUTO) 3.8 /CMM (1.8-8.9); PLATELET COUNT (AUTO) 260 /CMM (150-450); RED BLOOD CELL COUNT(AUTO) 3.87 MIL/uL (4.5-6.0); WHITE BLOOD COUNT (AUTO) 7.1 K/uL (4.3-11.0)
[2020-04-14 13:43] LABS: CALCIUM, SERUM 8.6 mg/dL (8.5-10.1); CREATININE 0.8 mg/dL (0.6-1.3); POTASSIUM 3.1 mmol/L (3.5-5.1)
[2020-04-14] MEDS: HYDROCODONE/APAP 5/325MG TABLET PO PRN (17:29)
--- NOTE | 2020-04-14 17:30 | NUR ---
RAGMAN OPENING NOTES RECEIVED PATIENT IN BED; A/O X2-3; ABLE TO MAKE NEEDS KNOWN. ON O2 2LPM VIA NC; TOLERATING WELL WITH NO SOB. R CHEST TUBE PIGTAIL INTACT; DRESSING C/D/I; WITH YELLOW/GREEN TINGED THICK DRAINAGE. ON EXTERNAL CARDIAC MONITORING; NS AND HR AT 70'S- 80'S. RFA GAUGE INTACT AND PATENT; NS @ ML/HR. NO COMPLAINTS OF PAIN OR DISCOMFORT AT THE TIME. SAFETY MEASURES IN PLACE; BED IN LOWEST LOCKED POSITION, BED ALARM ON, SIDE RAILS UP X2, CALL LIGHT WITHIN REACH. WILL CONTINUE TO MONITOR.
[2020-04-14] MEDS ORDERED: POTASSIUM CHLORIDE 20 MEQ TAB.PRT.SR PO SCH (18:00)
--- NOTE | 2020-04-14 18:14 | NUR ---
RN CLOSING NOTE PATIENT RESTING IN BED AT THIS TIME. NO S/S DISTRESS NOTED. C/O PAIN TO LEFT HAND 08/13. RECEIVED PRN NORCO WITH POSITIVE EFFECT. CHEST TUBE TO RIGHT CHEST WALL INTACT, DRAINING 175ML OF JON/YELLOW THICK DRAINAGE THIS SHIFT. PATIENT NOTED WITH PRODUCTIVE COUGH AND WHEEZING. CONTINUES ON 3L O2 SATING AT 97%. FALL, SAFETY AND ASPIRATION PRECAUTIONS ENFORCED. SIDE RAILS X 2. CALL LIGHT WITHIN REACH.
[2020-04-14] MEDS ORDERED: ALBUTEROL HALF STRENGTH 1.25 MG/3 ML VIAL.NEB NEB PRN (20:00)
[2020-04-14] MEDS ORDERED: IPRATROPIUM NEB FS 0.5 MG/2.5 ML AMPUL.NEB NEB PRN (20:00)
[2020-04-14] MEDS: GUAIFENESIN LA 600 MG TABLET.SA PO SCH (21:51)
[2020-04-14] MEDS: ATORVASTATIN 10 MG TABLET PO SCH (21:51)
[2020-04-15] VITALS (9 sets, daily range): BP systolic 119–130; BP diastolic 63–83
[2020-04-15] MEDS: ACETAMINOPHEN 325 MG TABLET PO PRN ×2 (02:04→21:05)
[2020-04-15] MEDS: PIPERACILLIN /TAZOBACTAM 3.375 G in IV D5W 100 ML IV SCH ×3 (04:31→21:07)
[2020-04-15 05:51] LABS: BASOPHILS # (AUTO) 0.1 /CMM (0.0-0.2); BASOPHILS % (AUTO) 0.7 % (0.0-2.0); HEMATOCRIT 32 % (39-51); LYMPHOCYTES # (AUTO) 2.2 /CMM (0.8-4.8); LYMPHOCYTES % (AUTO) 27.8 % (20.0-44.0); MEAN CORPUSCULAR HGB CONC 32 g/dl (31.0-36.0); MEAN CORPUSCULAR VOLUME 87 fL (80-96); MONOCYTES # (AUTO) 0.8 /CMM (0.1-1.30); MONOCYTES % (AUTO) 9.6 % (2.0-12.0); NEUTROPHILS # (AUTO) 4.2 /CMM (1.8-8.9); NEUTROPHILS % (AUTO) 52.9 % (43.0-81.0); PLATELET COUNT (AUTO) 240 /CMM (150-450); RED BLOOD CELL COUNT(AUTO) 3.61 MIL/uL (4.5-6.0)
[2020-04-15 06:03] LABS: CALCIUM, SERUM 8.6 mg/dL (8.5-10.1); CREATININE 0.9 mg/dL (0.6-1.3); MAGNESIUM 1.5 mg/dL (1.8-2.4); PHOSPHORUS 2.9 mg/dL (2.5-4.9); POTASSIUM 4.2 mmol/L (3.5-5.1)
[2020-04-15] MEDS: HYDROCODONE/APAP 5/325MG TABLET PO PRN (06:16)
--- NOTE | 2020-04-15 07:20 | NUR ---
IMPREGNATOR HELPER CLOSING NOTES PATIENT IN BED; A/O X2-3; ABLE TO MAKE NEEDS KNOWN. ON O2 3LPM VIA NC; TOLERATING WELL WITH NO SOB. R CHEST TUBE PIGTAIL INTACT; DRESSING C/D/I; WITH BURKS COLORED THICK DRAINAGE; TOTAL 40ML OUTPUT DURING THE SHIFT. ON EXTERNAL CARDIAC MONITORING; NS AND HR AT 70'. RFA GAUGE INTACT AND PATENT. NO COMPLAINTS OF PAIN OR DISCOMFORT AT THE TIME. SAFETY MEASURES IN PLACE; BED IN LOWEST LOCKED POSITION, BED ALARM ON, SIDE RAILS UP X2, CALL LIGHT WITHIN REACH. WILL ENDORSE PLAN OF CARE TO ONCOMING NURSE.
--- NOTE | 2020-04-15 07:53 | NUR ---
TELE/RN OPENING NOTE THE PATIENT IS RECEIVED IN BED. PATIENT IS ALERT AND ORIENTED X3 WITH EPISODES OF FORGETFULNESS. RECEIVING OXYGEN AT 3L/MIN VIA NASAL CANNULA AND DENIES SOB. RESPIRATION REGULAR AND UNLABORED. RIGHT CHEST TUBE WALL PIGTAIL PRESENT. TELE BOX READING IS SR 67. RFA G 22 PATENT AND NS INFUSING AT 75ML/HR AND NO S/S INFILTRATION NOTED. BED LOW AND LOCKED. SIDE RAILS UP X3. CALL LIGHT WITHIN REACH. WILL CONTINUE TO MONITOR.
[2020-04-15] MEDS: ASCORBIC ACID 500 MG TABLET PO SCH (09:47)
[2020-04-15] MEDS: DOCUSATE SODIUM 100 MG CAPSULE PO SCH ×2 (09:47→17:46)
[2020-04-15] MEDS: THIAMINE HCL 100 MG TABLET PO SCH (09:47)
[2020-04-15] MEDS: ASPIRIN 81 MG TAB.CHEW PO SCH (09:47)
[2020-04-15] MEDS: PANTOPRAZOLE 40 MG TABLET.DR PO SCH (09:48)
[2020-04-15] MEDS: GUAIFENESIN LA 600 MG TABLET.SA PO SCH ×2 (09:48→21:05)
[2020-04-15] MEDS: CLOPIDOGREL BISULFATE 75 MG TABLET PO SCH (09:48)
[2020-04-15] MEDS: AMLODIPINE BESYLATE 5 MG TABLET PO SCH (09:49)
[2020-04-15] MEDS: CARVEDILOL 6.25 MG TABLET PO SCH ×2 (09:49→17:47)
[2020-04-15] MEDS: Magnesium 1GM/D5W 100ML PREMIX 100 ML IV SCH ×2 (10:31→11:34)
--- NOTE | 2020-04-15 18:00 | NUR ---
TELE/RN SPECIMEN COLLECTED COLLECTED SPECIMEN FROM CHEST TUBE AND LAB MADE AWARE TO REELING MACHINE OPERATOR.
--- NOTE | 2020-04-15 18:08 | NUR ---
TELE/RN CLOSING NORTE THE PATIENT ALERT AND ORIENTED X3 WITH EPISODES OF FORGETFULNESS. DENIES PAIN. RIGHT CHEST TUBE WALL PIGTAIL DRAINING YELLOW, THINK PUS-LIKE OUTPUT 110 ML DURING THE SHIFT. RESPIRATION REGULAR AND UNLABORED. PATIENT IS RECEIVING OXYGEN AT 3L/MIN VIA NASAL CANNULA AND DENIES SOB. RFA G 22 PATENT AND NS INFUSING AT 75ML/HR AND NO S/S INFILTRATION NOTED. BED LOW AND LOCKED. SIDE RAILS UP X3. CALL LIGHT WITHIN REACH. WILL ENDORSE TO EXCELSIOR MACHINE TENDER. Addendum: 04/15/20 at 1811 by NISHA LOAIZA RN TELE BOX READING IS SR 79.
[2020-04-15] MEDS: IV NS 0.9% 1,000 ML IV PRN (19:13)
[2020-04-15] MEDS: ATORVASTATIN 10 MG TABLET PO SCH (21:05)
--- NOTE | 2020-04-15 21:05 | NUR ---
RN NOTE: C/O PAIN PATIENT C/O LEFT WRIST/HAND PAIN 06/13, REQUESTING FOR PAIN MEDICINE. PRN TYLENOL 650 MG PO ADMINISTERED. WILL CONTINUE TO MONITOR.
[2020-04-16] VITALS: BP_SYST 101; BP_SYST 111; BP_DIAS 70
[2020-04-16] MEDS ORDERED: Z GUARD REMEDY 4 OZ OINT TP PRN (00:30)
[2020-04-16] MEDS: HYDROCODONE/APAP 5/325MG TABLET PO PRN ×2 (01:44→19:44)
[2020-04-16 04:00] VITALS: BP 140/84
--- NOTE | 2020-04-16 04:00 | NUR ---
RN NOTE PATIENT NOTED WITH RIGHT NOSTRIL SMALL AMOUNT OF BLOOD, NOTED PATIENT MOVING HIS NASAL CANULA BACK & FORTH & PUTTING HIS RIGHT INDEX FINGER IN RIGHT NOSTRIL. ASSESSMENT DONE, CLEANED PATIENT'S NOSE & FACE, REMINDED THE PATIENT NOT TO PUT FINGERS OR MOVE NC BACK & FORTH THAT CAN CAUSE INJURY. PATIENT IS FORGETFUL, NEEDS REMINDERS. MONITORING PATIENT VERY CLOSELY FOR ANY LOLITA.
[2020-04-16] MEDS: PIPERACILLIN /TAZOBACTAM 3.375 G in IV D5W 100 ML IV SCH (05:39)
[2020-04-16] MEDS: IV NS 0.9% 1,000 ML IV PRN ×2 (06:57→19:58)
[2020-04-16 07:07] LABS: BASOPHILS # (AUTO) 0.1 /CMM (0.0-0.2); BASOPHILS % (AUTO) 0.7 % (0.0-2.0); EOSINOPHILS % (AUTO) 10.3 % (0.0-6.0); HEMATOCRIT 30 % (39-51); HEMOGLOBIN 9.7 g/dL (13.5-17.5); LYMPHOCYTES % (AUTO) 35.8 % (20.0-44.0); MEAN CORPUSCULAR HGB CONC 32 g/dl (31.0-36.0); MEAN CORPUSCULAR VOLUME 88 fL (80-96); MONOCYTES # (AUTO) 0.8 /CMM (0.1-1.30); MONOCYTES % (AUTO) 9.5 % (2.0-12.0); NEUTROPHILS # (AUTO) 3.7 /CMM (1.8-8.9); NEUTROPHILS % (AUTO) 43.7 % (43.0-81.0); PLATELET COUNT (AUTO) 275 /CMM (150-450); RED BLOOD CELL COUNT(AUTO) 3.46 MIL/uL (4.5-6.0); WHITE BLOOD COUNT (AUTO) 8.5 K/uL (4.3-11.0)
--- NOTE | 2020-04-16 07:07 | NUR ---
RN NOTE STAT CXR DONE, WAITING FOR RESULTS.
--- NOTE | 2020-04-16 07:56 | NUR ---
MS/RN Opening note Patient received from evening or night nurse supervisor. A/O X3, chest tube noted to right lung, drainage canister marked at start of shift. Right forearm 22g heplock noted, infusing normal saline at 75ml/hr, no signs of infiltration see. Safety measures in place, bed in low setting, side rails X3 in upright position. Call light within reach, will continue to monitor and ensure safety.
[2020-04-16 07:59] LABS: CALCIUM, SERUM 8.7 mg/dL (8.5-10.1); CREATININE 0.8 mg/dL (0.6-1.3); MAGNESIUM 2.1 mg/dL (1.8-2.4); POTASSIUM 4.3 mmol/L (3.5-5.1)
[2020-04-16 08:00] VITALS: BP 128/84
[2020-04-16] MEDS: ASPIRIN 81 MG TAB.CHEW PO SCH (08:46)
[2020-04-16] MEDS: PANTOPRAZOLE 40 MG TABLET.DR PO SCH (08:47)
[2020-04-16] MEDS: ASCORBIC ACID 500 MG TABLET PO SCH (08:47)
[2020-04-16] MEDS: DOCUSATE SODIUM 100 MG CAPSULE PO SCH ×2 (08:47→16:20)
[2020-04-16] MEDS: GUAIFENESIN LA 600 MG TABLET.SA PO SCH ×2 (08:47→22:42)
[2020-04-16] MEDS: THIAMINE HCL 100 MG TABLET PO SCH (08:47)
[2020-04-16] MEDS: CLOPIDOGREL BISULFATE 75 MG TABLET PO SCH (08:47)
[2020-04-16] MEDS: AMLODIPINE BESYLATE 5 MG TABLET PO SCH (08:49)
[2020-04-16] MEDS: CARVEDILOL 6.25 MG TABLET PO SCH ×2 (08:49→16:20)
[2020-04-16] MEDS: Z GUARD REMEDY 2 OZ OINT TP SCH (08:50)
--- NOTE | 2020-04-16 10:30 | NUR ---
MS/RN S/B Dr Hernandez Seen by Dr Hernandez - morning labs ordered, discharge planning back to SNF once chest tube removed.
--- NOTE | 2020-04-16 11:22 | NUR ---
WOUND CARE CONSULT: PT PRESENTS WITH RASH TO BUTTOCKS AND PERINEUM, PRESENT ON ADMISSION. PT NOTED TO BE INCONTINENT. RECOMMENDATIONS MADE FOR SKIN PROTECTION. DISCUSSED WITH NURSING STAFF. MD IN AGREEMENT WITH PLAN OF CARE. CURRENT PATTI SCORE IS 13.
[2020-04-16 12:00] VITALS: BP 121/80
--- NOTE | 2020-04-16 12:25 | NUR ---
MS/RN S/B Dr Carpenter Seen by Dr Carpenter - continue with chest tube to wall suction, repeat CT chest without contrast in morning. Flush chest tube daily with 5ml normal saline.
--- NOTE | 2020-04-16 12:41 | NUR ---
MS/RN Condom cath Condom catheter placed as per recommendation of wound care nurse.
[2020-04-16 16:00] VITALS: BP 117/69
[2020-04-16] MEDS: CLOTRIMAZOLE 1% 15 GM TUBE TP SCH (16:21)
--- NOTE | 2020-04-16 18:31 | NUR ---
MS/RN End note Patient remains in stable condition, small amount of drainage noted from chest tube, canister marked. All medications administered as ordered, denies pain and discomfort. Call light within reach, will continue to monitor and ensure safety.
--- NOTE | 2020-04-16 19:40 | NUR ---
TELERN FULLY AWAKE, STATES HE NEEDS MUSCLE RELAXANT, LEFT LEG PAIN. NORCO 1 TAB PO ADMINISTERED CRUSHED MIXED WITH PUDDING. ALL NEEDS ATTENDED. CHEST TUBE TO WALL SUCTION SCANTY AMOUNT DRAINAGE ALONG TUBING. CONDOM CATH IN PLACE. NO SOB, REPOSITIONS SELF FOR COMFORT. KEPT COMFORTABLE. CONTINUED MONITORING SR ON THE MONITOR
[2020-04-16 20:00] VITALS: BP 123/77
[2020-04-16] MEDS: ATORVASTATIN 10 MG TABLET PO SCH (22:42)
--- NOTE | 2020-04-16 23:55 | NUR ---
TELERN AWAKENED WITH LEFT LEG DISCOMFORTS, TYLENOL 650 MG CRUSHED WITH APPLE SAUCE ADMNISTERED.. STATES WILL GO BACK TO SLEEP. NO OTHER NEEDS MADE. RESPIRATION EVEN, CT REMAINS TO WALL SUCTION,, FOR REPEAT CT CHEST NO CONTRAST TODAY ORDERED BY . CONTINUED.
[2020-04-17] VITALS: BP_SYST 133; BP_SYST 172; BP_DIAS 108; BP_DIAS 85
[2020-04-17] MEDS: ACETAMINOPHEN 325 MG TABLET PO PRN (00:32)
[2020-04-17 04:00] VITALS: BP 132/85
--- NOTE | 2020-04-17 05:03 | NUR ---
TELERN REMAINS UNCHANGED, CONTINUED MONITORING. REMAINS ON 3 L O2 VIA NC.
[2020-04-17 06:38] LABS: BASOPHILS # (AUTO) 0.1 /CMM (0.0-0.2); BASOPHILS % (AUTO) 0.8 % (0.0-2.0); EOSINOPHILS % (AUTO) 9.4 % (0.0-6.0); HEMATOCRIT 31 % (39-51); HEMOGLOBIN 9.7 g/dL (13.5-17.5); LYMPHOCYTES # (AUTO) 2.4 /CMM (0.8-4.8); LYMPHOCYTES % (AUTO) 31.2 % (20.0-44.0); MEAN CORPUSCULAR HGB CONC 32 g/dl (31.0-36.0); MEAN CORPUSCULAR VOLUME 89 fL (80-96); MONOCYTES # (AUTO) 0.7 /CMM (0.1-1.30); MONOCYTES % (AUTO) 8.8 % (2.0-12.0); NEUTROPHILS # (AUTO) 3.8 /CMM (1.8-8.9); NEUTROPHILS % (AUTO) 49.8 % (43.0-81.0); PLATELET COUNT (AUTO) 266 /CMM (150-450); RED BLOOD CELL COUNT(AUTO) 3.46 MIL/uL (4.5-6.0); WHITE BLOOD COUNT (AUTO) 7.6 K/uL (4.3-11.0)
[2020-04-17 07:19] LABS: CALCIUM, SERUM 8.9 mg/dL (8.5-10.1); CREATININE 0.7 mg/dL (0.6-1.3); MAGNESIUM 2.1 mg/dL (1.8-2.4); POTASSIUM 3.9 mmol/L (3.5-5.1)
[2020-04-17 08:00] VITALS: BP 132/78
--- NOTE | 2020-04-17 08:04 | NUR ---
TELE/RN OPENING NOTES RECEIVED PATIENT ON BED AWAKE ALERT AND ORIENTED X3. PATIENT IS ON 3 L OXYGEN VIA NASAL CANNULA TOLERATING WELL. PATIENT IN NO APPARENT RESPIRATORY DISTRESS NOTED. NO COMPLAINED OF PAIN NOTED AT THIS TIME. TELE MONITOR READING SINUS RHYTHM 87 BPM. WILL CONTINUE TO MONITOR.
[2020-04-17] MEDS: ASPIRIN 81 MG TAB.CHEW PO SCH (08:34)
[2020-04-17] MEDS: DOCUSATE SODIUM 100 MG CAPSULE PO SCH ×2 (08:34→16:40)
[2020-04-17] MEDS: CLOPIDOGREL BISULFATE 75 MG TABLET PO SCH (08:34)
[2020-04-17] MEDS: GUAIFENESIN LA 600 MG TABLET.SA PO SCH ×2 (08:34→20:05)
[2020-04-17] MEDS: PANTOPRAZOLE 40 MG TABLET.DR PO SCH (08:34)
[2020-04-17] MEDS: ASCORBIC ACID 500 MG TABLET PO SCH (08:34)
[2020-04-17] MEDS: THIAMINE HCL 100 MG TABLET PO SCH (08:34)
[2020-04-17] MEDS: CARVEDILOL 6.25 MG TABLET PO SCH ×2 (08:35→16:40)
[2020-04-17] MEDS: AMLODIPINE BESYLATE 5 MG TABLET PO SCH (08:35)
[2020-04-17] MEDS: CLOTRIMAZOLE 1% 15 GM TUBE TP SCH ×2 (08:58→16:46)
[2020-04-17] MEDS: Z GUARD REMEDY 2 OZ OINT TP SCH (08:58)
[2020-04-17 12:00] VITALS: BP 112/63
[2020-04-17] MEDS: HYDROCODONE/APAP 5/325MG TABLET PO PRN ×2 (12:10→20:07)
[2020-04-17] MEDS: IV NS 0.9% 1,000 ML IV PRN (12:46)
[2020-04-17 16:00] VITALS: BP 107/63
--- NOTE | 2020-04-17 18:41 | NUR ---
TELE/RN CLOSING NOTES PATIENT IS ON BED. ALERT AND ORIENTED X3. PATIENT IS ON 3 L OXYGEN VIA NASAL CANNULA SATURATION 96%. PATIENT IN NO APPARENT RESPIRATORY DISTRESS NOTED. NO COMPLAINED OF PAIN AT THIS TIME. IV ACCESS AT RIGHT FOREARM # 22 G WITH IV FLUID OF NS AT 75ML/HR ON AND INFUSING WELL. TELE MONITOR READING SINUS RHYTHM 81 BPM. SEEN AND EXAMINED BY MD WITH ORDERS MADE AND CARRIED OUT. ALL DUE MEDICATIONS WAS GIVEN. SAFETY PRECAUTIONS WAS IN IN PLACED. SIDERAILS UP X2. BED IN LOWEST POSITION AND LOCKED. CALL LIGHT WITHIN REACH. WILL ENDORSED TO TUFTER OPERATOR FOR LOLITA.
[2020-04-17] MEDS: ATORVASTATIN 10 MG TABLET PO SCH (20:06)
[2020-04-17 20:24] VITALS: BP 90/50
--- NOTE | 2020-04-17 23:44 | NUR ---
RIGHT CHEST TUBE DRESSING LOOSE, TUBE IS STILL INTACT, REINFORCED WITH 2 BIG TEGADERMS. PT IS ASKING FOR A MUSCLE RELAXANT, WILL INFORM THE PROVIDER.
--- NOTE | 2020-04-18 00:26 | NUR ---
RIGHT FA IV IS LEAKING, REMOVED BY CHARGE NURSE BECKIE, AND REINSERTED ON THE RIGHT AC G20, PATENT AND INTACT IVF RESUMED.
[2020-04-18] MEDS ORDERED: CARISOPRODOL 350 MG TABLET PO PRN (00:30)
[2020-04-18 00:36] VITALS: BP 120/72
[2020-04-18 04:37] VITALS: BP 131/70
[2020-04-18 08:00] VITALS: BP 124/75
[2020-04-18] MEDS: ASPIRIN 81 MG TAB.CHEW PO SCH (09:27)
[2020-04-18] MEDS: THIAMINE HCL 100 MG TABLET PO SCH (09:27)
[2020-04-18] MEDS: DOCUSATE SODIUM 100 MG CAPSULE PO SCH ×2 (09:28→19:16)
[2020-04-18] MEDS: GUAIFENESIN LA 600 MG TABLET.SA PO SCH ×2 (09:28→21:12)
[2020-04-18] MEDS: PANTOPRAZOLE 40 MG TABLET.DR PO SCH (09:28)
[2020-04-18] MEDS: ASCORBIC ACID 500 MG TABLET PO SCH (09:28)
[2020-04-18] MEDS: CARVEDILOL 6.25 MG TABLET PO SCH ×2 (09:32→19:17)
[2020-04-18] MEDS: AMLODIPINE BESYLATE 5 MG TABLET PO SCH (09:32)
[2020-04-18] MEDS: CLOTRIMAZOLE 1% 15 GM TUBE TP SCH ×2 (09:36→17:00)
[2020-04-18] MEDS: Z GUARD REMEDY 2 OZ OINT TP SCH (09:36)
[2020-04-18] MEDS: CLOPIDOGREL BISULFATE 75 MG TABLET PO SCH (12:06)
[2020-04-18] MEDS: HYDROCODONE/APAP 5/325MG TABLET PO PRN (14:46)
[2020-04-18 16:00] VITALS: BP 120/69
--- NOTE | 2020-04-18 18:30 | NUR ---
received pt. in am alert and oriented x3,but forgetful.vs stable.
[2020-04-18 20:00] VITALS: BP 115/70
--- NOTE | 2020-04-18 20:00 | NUR ---
TELE IT PROGRAM MANAGER INITIAL NOTES RECEIVED REPORT FROM AM NURSE CRYS , SEEN PT IN BED AWAKE AND ALERT , NO SIGNS OF ANY DISTRESS NOTED. HE STILL WITH RIGHT CHEST TUBE PATENT AND DRESSING DRY AND INTACT. PT DENIES ANY PAIN . HE JUST SAID "THANK YOU AND CLOSED THE LIGHT . KEPT HIM WRM AND COMFORTABLE AT ALL TIMES. PLACE CALL LIGHT AT REACH. WILL CONTINUE MONITORING.
[2020-04-18] MEDS: ATORVASTATIN 10 MG TABLET PO SCH (21:13)
--- NOTE | 2020-04-18 21:15 | NUR ---
tele solution strategist notes Routine med given po as ordered tolerated well no aspiration noted. night cared rendered and reposition pt for comfort.
--- NOTE | 2020-04-18 23:32 | NUR ---
tele roller embosser notes heard someone calling and found out [phone]. he' called for muscle pain. Soma tablet given as ordered. while giving medicine to the patient noticed nose bleed in a small amount ,no signs of any acute distress noted and patient stated"i'm Ok " , called his MD to let him know what's happening to the pt.
--- NOTE | 2020-04-18 23:40 | NUR ---
tele national account representative notes got ordered from Dr Hernandez to hold plavix . and lasix 20 mg IVP at once for pt congestion.
[2020-04-19] VITALS: BP 113/73
[2020-04-19] MEDS ORDERED: FUROSEMIDE 20 MG/2 ML VIAL IV ONE
--- NOTE | 2020-04-19 01:20 | NUR ---
tele land title examiner notes checked pt and noticed he's still congested and bleeding nata his nose. but he's awake and alert ,reposition pt on sitting position because pt able to press the button to changes his position. tried to do oral suction to removed some secretion but small amount noted called someone to call the RT to do deep suction , pt still gurgle his own secretion with blood then noticed pt passing out , then 01:25 decided to call Rapid response (BRACE MAKER). While someone hook the patient to monitor, RECYCLING ASSISTANT checked his vital signs . blood sugar checked also.
--- NOTE | 2020-04-19 01:27 | NUR ---
tele field coordinator notes 01:25, vitals signs as FF 179/97 heart rate 123, 02 sat 77 %. Blood sugar 102. One nurse Notify Dr Hernandez. Rapid response team arrived , I told to them what happened and hx of the patient as well. one RT do the nasopharygeal suctioned and noticed big blood clot came out then patient started coughing and responding . 01:30 am vital signs checked BP 144/86 , heart rate 116 o2 sat 89 % -90%. then RT did another suctioned. pt is awake at this time but still congested but much better than before. 01:45 am Blood pressure checked BP 126/81 heart rate 112 and o2 sat 95% in simple mask. pt awake not in any acute distress noted and he stated :turn off the lights i want to sleep. Continue monitoring .
[2020-04-19 01:45] VITALS: BP 179/97
[2020-04-19] MEDS ORDERED: OXYMETAZOLINE HCL NASAL SPRAY 30 ML BOTTLE NS PRN (03:00)
[2020-04-19 04:08] VITALS: BP 106/67
[2020-04-19 06:36] LABS: BASOPHILS % (AUTO) 0.4 % (0.0-2.0); EOSINOPHILS % (AUTO) 2.3 % (0.0-6.0); HEMATOCRIT 33 % (39-51); HEMOGLOBIN 10.1 g/dL (13.5-17.5); LYMPHOCYTES # (AUTO) 2.1 /CMM (0.8-4.8); MEAN CORPUSCULAR HGB CONC 31 g/dl (31.0-36.0); MEAN CORPUSCULAR VOLUME 88 fL (80-96); MONOCYTES # (AUTO) 0.9 /CMM (0.1-1.30); NEUTROPHILS # (AUTO) 9.9 /CMM (1.8-8.9); NEUTROPHILS % (AUTO) 74.3 % (43.0-81.0); PLATELET COUNT (AUTO) 293 /CMM (150-450); RED BLOOD CELL COUNT(AUTO) 3.73 MIL/uL (4.5-6.0); WHITE BLOOD COUNT (AUTO) 13.4 K/uL (4.3-11.0)
--- NOTE | 2020-04-19 07:30 | NUR ---
RN OPENING NOTE PT IS ADMITTED WITH DIAGNOSIS OF PNEUMONIA. NKA. PT IS A/O X 3 BUT IS FORGETFUL. PT CURRENTLY ON ON 3L L O2 VIA FACE MASK AND HAS A CHEST TUBE ON THE R SIDE. PT O2 SAT AT 98%. PT IS IS CURRENTLY ON BED REST. PT IS ON CARDIAC DIET. PT HAS A IVF ON THE RIGHT ARM GAUGE. PT IS RESTING IN BED, BED IN LOWEST POSITION. 2 SIDE RAILS RAISED. CALL LIGHT WITHIN REACH. WILL CONTINUE TO MONITOR.
--- NOTE | 2020-04-19 07:31 | NUR ---
TELE SENIOR LINUX ENGINEER CLOSING NOTES PT SLEEPING COMFORTABLY IN BED WITHOUT ANY DISTRESS NOTED. TELE SINUS RHYTHM PER MONITOR. NO SIGNS OF ANY DISTRESS AT THIS TIME. ALL DUE MEDS GIVEN AND ALL NEEDS MET. KEPT HIM WARM AND COMFORTABLE AT ALL TIMES. WILL ENDORSE TO AM NURSE. FOR CONTINUITY OF CARE.
[2020-04-19 08:00] VITALS: BP 118/67
[2020-04-19] MEDS: ASPIRIN 81 MG TAB.CHEW PO SCH (08:35)
[2020-04-19] MEDS: GUAIFENESIN LA 600 MG TABLET.SA PO SCH ×2 (08:35→21:57)
[2020-04-19] MEDS: PANTOPRAZOLE 40 MG TABLET.DR PO SCH (08:35)
[2020-04-19] MEDS: AMLODIPINE BESYLATE 5 MG TABLET PO SCH (08:36)
[2020-04-19] MEDS: CARVEDILOL 6.25 MG TABLET PO SCH ×2 (08:36→17:00)
[2020-04-19] MEDS: DOCUSATE SODIUM 100 MG CAPSULE PO SCH ×2 (08:37→17:00)
[2020-04-19] MEDS: ASCORBIC ACID 500 MG TABLET PO SCH (08:37)
[2020-04-19] MEDS: Z GUARD REMEDY 2 OZ OINT TP SCH (08:37)
[2020-04-19] MEDS: THIAMINE HCL 100 MG TABLET PO SCH (08:37)
[2020-04-19] MEDS: CLOTRIMAZOLE 1% 15 GM TUBE TP SCH ×2 (08:49→18:35)
--- NOTE | 2020-04-19 09:50 | NUR ---
DR MUNGUIA CALLED AND ORDERED INTERVENTIONAL RADIOLOGIST TO REMOVE PIGTAIL TODAY.CALLED AND COORDINATED WITH CELIA AND DR BURNETT (RADIOLOGIST) FOR THE REMOVAL.
--- NOTE | 2020-04-19 10:20 | NUR ---
DR BURNETT (RADIOLOGIST) ARRIVED AND DID IR REMOVAL WITH NO BLEEDING NOTED. MEDICATED PT WITH PRN NORCO AFTER.
[2020-04-19] MEDS: HYDROCODONE/APAP 5/325MG TABLET PO PRN ×2 (10:37→21:58)
[2020-04-19] MEDS: IV NS 0.9% 1,000 ML IV PRN (10:38)
[2020-04-19 12:00] VITALS: BP 91/67
--- NOTE | 2020-04-19 19:30 | NUR ---
RN CLOSING NOTE PT IS SLEEPING IN BED. A/O X 3. PT IS FORGETFUL AT TIMES PT IS 3L O2 VIA FACE MASK. PT HAS NO SIGNS OF RESPIRATORY DISTRESS. CHEST TUBE IS REMOVED. PT IS SINUS RHYTHM. PT IS INCONTINENT. IVF PRESENT IN RIGHT FOREARM, 20 GAUGE. ROUTINE MEDS GIVEN. BED IN LOWEST POSITION. 2 SIDE RAILS UPS. CALL LIGHT WITHIN REACH.
[2020-04-19 20:00] VITALS: BP 102/56
[2020-04-19] MEDS: ATORVASTATIN 10 MG TABLET PO SCH (21:57)
--- NOTE | 2020-04-19 22:09 | NUR ---
tele residential specialist notes pt complaint of back pain , norco tablet given po as ordered. Routine meds given as well. reposition pt for comfort. will continue monitoring.
[2020-04-20] VITALS: BP 108/68
[2020-04-20 04:00] VITALS: BP 118/72
[2020-04-20 07:18] LABS: BASOPHILS % (AUTO) 0.6 % (0.0-2.0); HEMATOCRIT 28 % (39-51); HEMOGLOBIN 8.9 g/dL (13.5-17.5); LYMPHOCYTES # (AUTO) 2.2 /CMM (0.8-4.8); LYMPHOCYTES % (AUTO) 33.9 % (20.0-44.0); MEAN CORPUSCULAR HGB CONC 32 g/dl (31.0-36.0); MEAN CORPUSCULAR VOLUME 88 fL (80-96); MONOCYTES # (AUTO) 0.8 /CMM (0.1-1.30); MONOCYTES % (AUTO) 12.1 % (2.0-12.0); NEUTROPHILS # (AUTO) 2.9 /CMM (1.8-8.9); NEUTROPHILS % (AUTO) 44.4 % (43.0-81.0); PLATELET COUNT (AUTO) 275 /CMM (150-450); RED BLOOD CELL COUNT(AUTO) 3.18 MIL/uL (4.5-6.0); WHITE BLOOD COUNT (AUTO) 6.6 K/uL (4.3-11.0)
--- NOTE | 2020-04-20 07:58 | NUR ---
tele mushroom farmer closing notes pt slept well after pain medication and routine meds given last night. no signs of any acute distress noted. stable troughout the night. kept him warm and comfortable at all times. endorse to am nurse.
[2020-04-20 08:00] VITALS: BP 129/82
--- NOTE | 2020-04-20 08:00 | NUR ---
MS RN OPENING NOTE PT IS A/O X 3 BUT IS FORGETFUL. PT CURRENTLY ON ON 3L L O2 VIA NC. O2 SAT 96%. HAS A CHEST TUBE ON THE RT SIDE. PT IS IS CURRENTLY ON BED REST. PT IS ON CARDIAC DIET WITH NECTAR THICKENED LIQUIDS. PT HAS A IVF ON THE RIGHT ARM GAUGE. TURNED EVERY TWO HRS. BED IN LOWEST POSITION. 2 SIDE RAILS RAISED. CALL LIGHT WITHIN REACH. WILL CONTINUE TO MONITOR.
[2020-04-20] MEDS: PANTOPRAZOLE 40 MG TABLET.DR PO SCH (09:08)
[2020-04-20] MEDS: GUAIFENESIN LA 600 MG TABLET.SA PO SCH (09:09)
[2020-04-20] MEDS: CARVEDILOL 6.25 MG TABLET PO SCH (09:09)
[2020-04-20] MEDS: ASCORBIC ACID 500 MG TABLET PO SCH (09:09)
[2020-04-20] MEDS: THIAMINE HCL 100 MG TABLET PO SCH (09:10)
[2020-04-20] MEDS: DOCUSATE SODIUM 100 MG CAPSULE PO SCH (09:10)
[2020-04-20] MEDS: ASPIRIN 81 MG TAB.CHEW PO SCH (09:10)
[2020-04-20] MEDS: AMLODIPINE BESYLATE 5 MG TABLET PO SCH (09:10)
[2020-04-20] MEDS: CLOTRIMAZOLE 1% 15 GM TUBE TP SCH (09:12)
[2020-04-20] MEDS: Z GUARD REMEDY 2 OZ OINT TP SCH (09:13)
[2020-04-20 15:58] VITALS: BP 101/56
--- NOTE | 2020-04-20 16:17 | NUR ---
DISCHARGED PT TO [facility] VIA AMBULANCE WITH STABLE V/S.DENIES ANY PAIN OR DISTRESS.WITH NO SOB ON O2 AT 2LITERS VIA NC.REMOVED RT AC HEPLOCK WITH NO BLEEDING NOTED AND PT TOLERATED WELL.CHEST TUBE SITE REMAINS CLEAN AND DRY WITH NO BLEEDING NOTED.REPORT CALLED IN TO APRIL [place] OF [facility] WITH DISCHARGE INSTRUCTIONS. PT WILL GO TO ROOM [address] [place] [address].
== END 2020-04-20 16:15 | DRG 177 ==
LOC: ER 15:03 → TRANSITION 22:02 → TELE1 04-08 06:10 → TELE-TD 04-08 06:52 → TELE1 04-09 08:47 → TELE 04-09 22:04
PROVIDERS: ADMIT Legal Medicine; ATTEND Legal Medicine
PROC: 0W9930Z Drainage of Right Pleural Cavity with Drainage Device, Percutaneous Approach (ICD-10-PCS; principal; 2020-04-05)
PROC: 3E0L3GC Introduction of Other Therapeutic Substance into Pleural Cavity, Percutaneous Approach (ICD-10-PCS; 2020-04-11)
DX: J69.0 Pneumonitis due to inhalation of food and vomit (principal); J96.01 Acute respiratory failure with hypoxia; J86.9 Pyothorax without fistula; G93.41 Metabolic encephalopathy; J90 Pleural effusion, not elsewhere classified; I12.9 Hypertensive chronic kidney disease with stage 1 through stage 4 chronic kidney disease, or unspecified chronic kidney disease; N18.9 Chronic kidney disease, unspecified; E11.22 Type 2 diabetes mellitus with diabetic chronic kidney disease; Z86.73 Personal history of transient ischemic attack (TIA), and cerebral infarction without residual deficits; F32.9 Major depressive disorder, single episode, unspecified; R13.10 Dysphagia, unspecified; D64.9 Anemia, unspecified; I25.10 Atherosclerotic heart disease of native coronary artery without angina pectoris; F09 Unspecified mental disorder due to known physiological condition; Z20.822 Contact with and (suspected) exposure to COVID-19
CPT/HCPCS: 31720; 36415; 71045-TC; 71250-TC; 75989-TC; 80048-TC; 80076-TC; 82550-TC; 82728-TC; 82962-TC; 83605-TC; 83615-TC; 83735-TC; 83880; 84100-TC; 84484-TC; 85025-TC; 85378-TC; 85385-TC; 85730-TC; 86140-TC; 87040-TC; 87070-TC; 87081-TC; 88108-TC; 88305-TC; 88312-TC; 89051-TC; 92521; 92526; 94799-TC; 97110-TC; 97112-TC; 97530-TC; A4349; A6253; A6403; C9113; G0378; J0456; J0696; J1650; J1940; J2543; J2997; J3475; J3480; J7030; J7042; J7050; J7060; U0003

== ENCOUNTER 2020-08-20 04:55 | Emergency (ER) | payer MEDICARE, OTHER ==
[~2020-08-20] VITALS: Ht 172.7 cm; Wt 64.4 kg
[~2020-08-20 04:55] MED LIST: ACET-868 PO; ALBU1.257 IH; AMLO-212 PO; ASCO-352 PO; ASPI-1169 PO; ATOR10TA PO; CARV6.252 PO; CHOL100040 PO; CLOP75TA15 PO; CRAN425C6 PO; DOCU-141 PO; HYDR-4384 PO; HYDR-500 PO; IPRA4AER IH; MAGN400O6 PO; MULT-447 PO; PANT40TA2 PO; QUERCETIN DIHYDRATE PO
[2020-08-20] MEDS ORDERED: TDAP [DIPH/PERTUSSIS/TET] 0.5 ML VIAL IM ONE ×2 (05:00→05:05)
--- NOTE | 2020-08-20 05:01 | NUR ---
PATIENT [id number] S/P FALL FROM BED, LACERATION ON LEFT EYEBROW NAD BUMP ON LEFT FOREHEAD. PATIENT IS A/OX4, STABLE ON ROOM AIR, V/S WNL. WOUND Tx BEING DONE AT BEDSIDE. WILL CONTINUE TO MONITOR.
--- NOTE | 2020-08-20 05:04 | NUR ---
PATIENT TAKEN TO CT
--- NOTE | 2020-08-20 05:15 | NUR ---
PATIENT RETURNED FROM CT
--- NOTE | 2020-08-20 05:38 | NUR ---
[facility] CALLED FOR TRANSPORT. ETA 30 MINUTES.
--- NOTE | 2020-08-20 05:46 | NUR ---
CALLED [facility], SPOKE WITH LENORE, ABOUT PATIENT TRETMENT RECEIVED AND PATIENT WILL BE RETURNING.
[2020-08-20 05:51] VITALS: BP 148/88
--- NOTE | 2020-08-20 07:12 | NUR ---
Patient discharged to SNF in stable condition. Written and verbal after care instructions given. Patient verbalizes understanding of instruction. Pt transferred via ambulance.
== END 2020-08-20 07:13 ==
LOC: ER 04:56
DX: S01.112A Laceration without foreign body of left eyelid and periocular area, initial encounter (principal); I12.9 Hypertensive chronic kidney disease with stage 1 through stage 4 chronic kidney disease, or unspecified chronic kidney disease; N18.9 Chronic kidney disease, unspecified; F32.9 Major depressive disorder, single episode, unspecified; Z86.73 Personal history of transient ischemic attack (TIA), and cerebral infarction without residual deficits; Z79.899 Other long term (current) drug therapy; Z79.82 Long term (current) use of aspirin; W06.XXXA Fall from bed, initial encounter; Y93.89 Activity, other specified; Y92.89 Other specified places as the place of occurrence of the external cause; Y99.8 Other external cause status
CPT/HCPCS: 70450-TC; 90715

== ENCOUNTER 2022-10-28 13:49 | Inpatient (IN) | payer MEDICARE, OTHER ==
[~2022-10-28] VITALS: Ht 182.9 cm; Wt 79.4 kg
[2022-10-28 15:05] LABS: BASOPHILS # (AUTO) 0.1 K/uL (0.0-0.2); BASOPHILS % (AUTO) 0.9 % (0.0-2.0); EOSINOPHILS % (AUTO) 8.8 % (0.0-6.0); HEMATOCRIT 40 % (39-51); HEMOGLOBIN 13.1 g/dL (13.5-17.5); LYMPHOCYTES # (AUTO) 2.3 K/uL (0.8-4.8); LYMPHOCYTES % (AUTO) 31.7 % (20.0-44.0); MEAN CORPUSCULAR HGB CONC 33 g/dl (31.0-36.0); MEAN CORPUSCULAR VOLUME 93 fL (80-96); MONOCYTES # (AUTO) 0.6 K/uL (0.1-1.30); MONOCYTES % (AUTO) 8.9 % (2.0-12.0); NEUTROPHILS # (AUTO) 3.6 K/uL (1.8-8.9); NEUTROPHILS % (AUTO) 49.7 % (43.0-81.0); PLATELET COUNT (AUTO) 122 K/uL (150-450); WHITE BLOOD COUNT (AUTO) 7.2 K/uL (4.3-11.0)
[2022-10-28 15:18] LABS: CALCIUM, SERUM 8.7 mg/dL (8.5-10.1); CARBON DIOXIDE 25 mmol/L (21-32); CHLORIDE 108 mmol/L (98-107); CREATININE 1.1 mg/dL (0.6-1.3); GLUCOSE 92 mg/dL (74-106); POTASSIUM 3.7 mmol/L (3.5-5.1); SODIUM SERUM 144 mmol/L (136-145); UREA NITROGEN, BLOOD 19 mg/dL (7-18)
[2022-10-28 15:31] LABS: ALANINE AMINOTRANSFERASE 26 U/L (12-78); ALBUMIN 3.5 g/dL (3.4-5.0); ALKALINE PHOSPHATASE 77 U/L (46-116); ASPARTATE AMINOTRANSFERASE 17 U/L (15-37); BILIRUBIN,DIRECT 0.1 mg/dL (0.0-0.2); BILIRUBIN,TOTAL 0.4 mg/dL (0.2-1.0); TOTAL PROTEIN, SERUM 7.6 g/dL (6.4-8.2)
[2022-10-28] MEDS ORDERED: MAGNESIUM HYDROXIDE 30 ML UDC PO PRN (16:30)
[2022-10-28] MEDS ORDERED: IV NS 0.9% 1,000 ML IV PRN (16:30)
[2022-10-28] MEDS ORDERED: ONDANSETRON HCL/PF 4 MG/2 ML VIAL IVP PRN (16:30)
[2022-10-28] MEDS ORDERED: Z GUARD REMEDY 4 OZ OINT TP PRN (16:30)
[2022-10-28] MEDS ORDERED: MAG HYDROX/AL HYDROX/SIMETH 30 ML UDC PO PRN (16:30)
[2022-10-28] MEDS ORDERED: ACETAMINOPHEN 325 MG TABLET PO PRN ×2 (16:30)
[2022-10-28] MEDS ORDERED: FUROSEMIDE 20 MG/2 ML VIAL IV ONE (17:00)
[2022-10-28] MEDS ORDERED: ALBUTEROL FS 2.5 MG/0.5 ML VIAL.NEB NEB PRN (18:15)
[2022-10-28] MEDS ORDERED: IPRATROPIUM NEB FS 0.5 MG/2.5 ML AMPUL.NEB NEB PRN (18:30)
[2022-10-28 18:36] VITALS: BP 126/73; TEMP 97; O2SAT 97
[2022-10-28] MEDS: CARVEDILOL 6.25 MG TABLET PO SCH (19:41)
[2022-10-28] MEDS: HYDROCODONE/APAP 5/325MG TABLET PO PRN (19:42)
[2022-10-28] MEDS: DOCUSATE SODIUM 100 MG CAPSULE PO SCH (19:42)
[2022-10-28 20:00] VITALS: BP 125/65; TEMP 97; O2SAT 97
[2022-10-28] MEDS: ATORVASTATIN 10 MG TABLET PO SCH (21:40)
[2022-10-28] MEDS ORDERED: FUROSEMIDE 20 MG/2 ML VIAL ONE (21:42)
[2022-10-29] VITALS: BP 127/74; TEMP 96.8; O2SAT 97
[2022-10-29 04:00] VITALS: BP 125/65; TEMP 96.8; O2SAT 97
[2022-10-29] MEDS: HYDROCODONE/APAP 5/325MG TABLET PO PRN ×2 (04:07→10:36)
[2022-10-29 06:44] LABS: BASOPHILS % (AUTO) 0.4 % (0.0-2.0); EOSINOPHILS % (AUTO) 2.5 % (0.0-6.0); HEMATOCRIT 40 % (39-51); HEMOGLOBIN 13.5 g/dL (13.5-17.5); LYMPHOCYTES % (AUTO) 17.8 % (20.0-44.0); MEAN CORPUSCULAR HGB CONC 34 g/dl (31.0-36.0); MEAN CORPUSCULAR VOLUME 92 fL (80-96); MONOCYTES # (AUTO) 0.8 K/uL (0.1-1.30); MONOCYTES % (AUTO) 7.4 % (2.0-12.0); NEUTROPHILS % (AUTO) 71.9 % (43.0-81.0); PLATELET COUNT (AUTO) 125 K/uL (150-450); RED BLOOD CELL COUNT(AUTO) 4.41 MIL/uL (4.5-6.0); WHITE BLOOD COUNT (AUTO) 11.2 K/uL (4.3-11.0)
[2022-10-29 07:27] LABS: CALCIUM, SERUM 9.1 mg/dL (8.5-10.1); CREATININE 1.1 mg/dL (0.6-1.3); POTASSIUM 3.8 mmol/L (3.5-5.1)
[2022-10-29 08:00] VITALS: BP 172/113; TEMP 98; O2SAT 93
[2022-10-29] MEDS ORDERED: AMLODIPINE BESYLATE 5 MG TABLET PO SCH (09:00)
[2022-10-29] MEDS: CARVEDILOL 6.25 MG TABLET PO SCH ×2 (09:10→17:31)
[2022-10-29] MEDS: DOCUSATE SODIUM 100 MG CAPSULE PO SCH ×2 (09:10→17:31)
[2022-10-29] MEDS: CLOPIDOGREL BISULFATE 75 MG TABLET PO SCH (09:10)
[2022-10-29] MEDS: ASPIRIN 81 MG TAB.CHEW PO SCH (09:11)
[2022-10-29] MEDS ORDERED: IV NS 0.9% 1,000 ML IV PRN (09:27)
[2022-10-29] MEDS ORDERED: CLONIDINE HCL 0.1 MG TABLET PO PRN (09:30)
[2022-10-29] MEDS ORDERED: NA P133E RC (10:46)
[2022-10-29] MEDS ORDERED: PRAV10TA40 PO (10:46)
[2022-10-29] MEDS ORDERED: QUET25TA PO (10:46)
[2022-10-29] MEDS ORDERED: MINO2.5T2 PO (10:46)
[2022-10-29] MEDS ORDERED: [UNRECOGNIZED DRUG - OTHER] PO (10:46)
[2022-10-29] MEDS ORDERED: CARV25TA PO (10:46)
[2022-10-29] MEDS ORDERED: PARO20TA7 PO (10:46)
[2022-10-29] MEDS ORDERED: AMIN30LI2 PO (10:46)
[2022-10-29] MEDS ORDERED: CLON0.5T4 PO (10:46)
[2022-10-29] MEDS ORDERED: ACET-2605 PO (10:46)
[2022-10-29] MEDS ORDERED: BISA10SU11 RC (10:46)
[2022-10-29 16:00] VITALS: BP 166/103; TEMP 98.7; O2SAT 92
[2022-10-29 20:19] VITALS: BP 147/84; TEMP 98; O2SAT 97
[2022-10-29] MEDS: ATORVASTATIN 10 MG TABLET PO SCH (21:19)
[2022-10-30 00:19] VITALS: BP 147/84; TEMP 98; O2SAT 97
[2022-10-30 04:07] VITALS: BP 154/88; TEMP 98; O2SAT 95
[2022-10-30 08:00] VITALS: BP 148/96; TEMP 98.3; O2SAT 97
[2022-10-30 08:06] LABS: BASOPHILS % (AUTO) 0.3 % (0.0-2.0); EOSINOPHILS % (AUTO) 4.2 % (0.0-6.0); HEMATOCRIT 42 % (39-51); HEMOGLOBIN 13.9 g/dL (13.5-17.5); LYMPHOCYTES # (AUTO) 2.3 K/uL (0.8-4.8); LYMPHOCYTES % (AUTO) 24.8 % (20.0-44.0); MEAN CORPUSCULAR HGB CONC 33 g/dl (31.0-36.0); MEAN CORPUSCULAR VOLUME 93 fL (80-96); MONOCYTES # (AUTO) 1.1 K/uL (0.1-1.30); MONOCYTES % (AUTO) 11.4 % (2.0-12.0); NEUTROPHILS # (AUTO) 5.5 K/uL (1.8-8.9); NEUTROPHILS % (AUTO) 59.3 % (43.0-81.0); PLATELET COUNT (AUTO) 123 K/uL (150-450); RED BLOOD CELL COUNT(AUTO) 4.51 MIL/uL (4.5-6.0); WHITE BLOOD COUNT (AUTO) 9.3 K/uL (4.3-11.0)
[2022-10-30 08:13] LABS: CREATININE 1.1 mg/dL (0.6-1.3)
[2022-10-30] MEDS: ASPIRIN 81 MG TAB.CHEW PO SCH (09:08)
[2022-10-30] MEDS: DOCUSATE SODIUM 100 MG CAPSULE PO SCH ×2 (09:08→16:24)
[2022-10-30] MEDS: CLOPIDOGREL BISULFATE 75 MG TABLET PO SCH (09:08)
[2022-10-30] MEDS: CARVEDILOL 12.5 MG TABLET PO SCH ×2 (09:13→16:24)
[2022-10-30] MEDS: AMLODIPINE BESYLATE 5 MG TABLET PO SCH (09:13)
[2022-10-30 16:00] VITALS: BP 152/90; TEMP 98; O2SAT 96
[2022-10-30] MEDS: ATORVASTATIN 10 MG TABLET PO SCH (22:04)
[2022-10-31] VITALS: BP 139/85; TEMP 98.9; O2SAT 97
[2022-10-31 08:00] VITALS: BP 157/98; TEMP 98; O2SAT 97
[2022-10-31] MEDS: DOCUSATE SODIUM 100 MG CAPSULE PO SCH ×2 (08:04→09:00)
[2022-10-31] MEDS: ASPIRIN 81 MG TAB.CHEW PO SCH (08:04)
[2022-10-31] MEDS: CLOPIDOGREL BISULFATE 75 MG TABLET PO SCH (08:05)
[2022-10-31 08:27] VITALS: BP 157/98
[2022-10-31] MEDS: CARVEDILOL 12.5 MG TABLET PO SCH (08:27)
[2022-10-31] MEDS: AMLODIPINE BESYLATE 5 MG TABLET PO SCH (08:27)
== END 2022-10-31 13:10 | DRG 682 ==
LOC: ER 13:56 → MEDSG1 18:03
PROVIDERS: ADMIT Internal Medicine; ATTEND Internal Medicine
DX: N17.0 Acute kidney failure with tubular necrosis (principal); G93.41 Metabolic encephalopathy; E87.20 Acidosis, unspecified; I13.0 Hypertensive heart and chronic kidney disease with heart failure and stage 1 through stage 4 chronic kidney disease, or unspecified chronic kidney disease; I69.354 Hemiplegia and hemiparesis following cerebral infarction affecting left non-dominant side; E86.0 Dehydration; E11.22 Type 2 diabetes mellitus with diabetic chronic kidney disease; N18.9 Chronic kidney disease, unspecified; F32.9 Major depressive disorder, single episode, unspecified; I16.0 Hypertensive urgency; I50.9 Heart failure, unspecified; Z79.899 Other long term (current) drug therapy; Z79.02 Long term (current) use of antithrombotics/antiplatelets; R13.10 Dysphagia, unspecified; I25.10 Atherosclerotic heart disease of native coronary artery without angina pectoris
CPT/HCPCS: 36415; 71045-TC; 80048-TC; 80076-TC; 82962-TC; 83690-TC; 83735-TC; 83880; 84100-TC; 84484-TC; 85025-TC; A4223; G0378; J1940; J7030

== ENCOUNTER 2023-05-05 16:57 | Inpatient (IN) | payer MEDICARE, OTHER ==
[~2023-05-05] VITALS: Ht 172.7 cm; Wt 86.6 kg
[~2023-05-05 16:57] MED LIST changes: +ACET-2605 PO; -ALBU1.257 IH; +AMIN30LI2 PO; -ASPI-1169 PO; -ATOR10TA PO; +BISA10SU11 RC; +CARV25TA PO; -CARV6.252 PO; +CLON0.5T4 PO; -HYDR-500 PO; -IPRA4AER IH; +MINO2.5T2 PO; +NA P133E RC; +PARO20TA7 PO; +PRAV10TA40 PO; -QUERCETIN DIHYDRATE PO; +QUET25TA PO; +[UNRECOGNIZED DRUG - OTHER] PO
[2023-05-05] MEDS: FUROSEMIDE 40 MG/4 ML VIAL IV ONE (17:43)
[2023-05-05] MEDS: ENALAPRILAT INJ (1.25 MG/ML) 1.25 MG/ML VIAL IV STA (17:43)
[2023-05-05 17:48] LABS: BASOPHILS % (AUTO) 0.1 % (0.0-2.0); EOSINOPHILS # (AUTO) 0.1 K/uL (0.0-0.7); EOSINOPHILS % (AUTO) 0.2 % (0.0-6.0); HEMATOCRIT 52 % (39-51); LYMPHOCYTES # (AUTO) 2.2 K/uL (0.8-4.8); LYMPHOCYTES % (AUTO) 10.5 % (20.0-44.0); MEAN CORPUSCULAR HEMOGLOBIN 31 PG (26.0-33.0); MEAN CORPUSCULAR HGB CONC 33 g/dl (31.0-36.0); MEAN CORPUSCULAR VOLUME 93 fL (80-96); MONOCYTES # (AUTO) 1.5 K/uL (0.1-1.30); MONOCYTES % (AUTO) 7.3 % (2.0-12.0); NEUTROPHILS # (AUTO) 17.2 K/uL (1.8-8.9); NEUTROPHILS % (AUTO) 81.9 % (43.0-81.0); PLATELET COUNT (AUTO) 208 K/uL (150-450); RED BLOOD CELL COUNT(AUTO) 5.55 MIL/uL (4.5-6.0)
[2023-05-05] MEDS ORDERED: ONDA4TAB5 PO (17:51)
[2023-05-05] MEDS ORDERED: AMIN30LI66 PO (17:51)
[2023-05-05] MEDS ORDERED: PROM118S5 PO (17:56)
[2023-05-05 17:59] LABS: CARBON DIOXIDE 19 mmol/L (21-32); CHLORIDE 102 mmol/L (98-107); CREATININE 2.5 mg/dL (0.6-1.3); GLUCOSE 194 mg/dL (74-106); POTASSIUM 4.7 mmol/L (3.5-5.1); SODIUM SERUM 138 mmol/L (136-145); UREA NITROGEN, BLOOD 29 mg/dL (7-18)
[2023-05-05 18:11] LABS: ALANINE AMINOTRANSFERASE 34 U/L (12-78); ALBUMIN 4.2 g/dL (3.4-5.0); ALKALINE PHOSPHATASE 108 U/L (46-116); ASPARTATE AMINOTRANSFERASE 25 U/L (15-37); BILIRUBIN,DIRECT 0.2 mg/dL (0.0-0.2); BILIRUBIN,TOTAL 0.7 mg/dL (0.2-1.0); NT-PRO BNP 323 pg/mL (0-125); TOTAL PROTEIN, SERUM 9.5 g/dL (6.4-8.2)
[2023-05-05 18:26] LABS: INR 1.09 (0.91-1.10); PARTIAL THROMBOPLASTIN TIME 28.3 SEC (24.3-34.3); PROTHROMBIN TIME 11.5 SECS (9.2-11.1)
[2023-05-05] MEDS ORDERED: IOHEXOL-350 100 ML VIAL IV ONE (18:27)
[2023-05-05] MEDS ORDERED: IV NS 0.9% 250 ML IV ONE (18:27)
[2023-05-05 18:31] LABS: D-DIMER 5.46 mg/L(FEU (0.17-0.50)
[2023-05-05 19:39] LABS: EOSINOPHILS % (MANUAL) 1 % (0-4); LYMPHOCYTES % (MANUAL) 6 % (16-48); MONOCYTES % (MANUAL) 6 % (0-11.0); NEUTROPHILS % (MANUAL) 87 (42-76); PLATELET ESTIMATE ADEQUATE
[2023-05-05 20:46] LABS: ABG BASE EXCESS -8.5 mmol/L; ABG OXYGEN SATURATION 98.9 % (92.0-98.5); ABG PCO2 43.8 mmHg (35.0-45.0); ABG PH 7.245 (7.350-7.450); ABG PO2 196.5 mmHg (75.0-100.0); ABG TOTAL HEMOGLOBIN 19.6 G/dL (13.5-18.0); COHb 0.1 % (0.5-1.5); MetHb 0.8 % (0.0-1.5); SITE, ABG Right Radial; VENT MODE, BG S/T 10 15/5 100%
[2023-05-05] MEDS: CEFEPIME 1 GM in IV D5W 50 ML IV ONE (21:00)
[2023-05-05] MEDS: IV NS 0.9% 1,000 ML BAG IV ONE (21:32)
[2023-05-05] MEDS: VANCOMYCIN 1 GM in IV D5W 250 ML IV ONE (21:32)
[2023-05-05 22:26] LABS: LACTIC ACID 4.9 mmol/L (0.4-2.0)
[2023-05-05] MEDS ORDERED: ONDANSETRON HCL/PF 4 MG/2 ML VIAL IVP PRN (23:00)
[2023-05-05] MEDS: CARVEDILOL 12.5 MG TABLET PO SCH (23:30)
[2023-05-06] VITALS (30 sets, daily range): BP systolic 93–152; BP diastolic 64–93; TEMP 97.6–101.2; O2SAT 58–100
[2023-05-06] MEDS: IV NS 0.9% 1,000 ML IV PRN (00:27)
[2023-05-06 00:44] LABS: ABG BASE EXCESS -11.3 mmol/L; ABG OXYGEN SATURATION 99.4 % (92.0-98.5); ABG PCO2 46.9 mmHg (35.0-45.0); ABG PH 7.179 (7.350-7.450); ABG TOTAL HEMOGLOBIN 16.8 G/dL (13.5-18.0); AaDO2 407.1 mmHg; COHb 0.3 % (0.5-1.5); MetHb 0.5 % (0.0-1.5); O2Hb 98.6 % (94.0-97.0); SITE, ABG Right Radial
[2023-05-06] MEDS: SODIUM BICARBONATE SYR 50 MEQ/50 ML DISP.SYRIN IV ONE (01:19)
[2023-05-06] MEDS: SODIUM BICARBONATE SYR 150 MEQ in IV NS 0.9% 1,000 ML IV PRN (01:20)
[2023-05-06 02:05] LABS: APPEARANCE,URINE CLEAR (CLEAR); BILIRUBIN,URINE NEGATIVE (NEGATIVE); BLOOD, URINE 3+ Ery/uL (NEGATIVE); COLOR,URINE YELLOW (YELLOW); KETONES,URINE NEGATIVE (NEGATIVE); LEUKOCYTE ESTERASE ,URINE NEGATIVE (NEGATIVE); NITRITE, URINE NEGATIVE (NEGATIVE); PH,URINE 5.5 (5.0-8.0); PROTEIN,URINE 2+ mg/dl (NEGATIVE); UGLUCOSE NEGATIVE (NEGATIVE); UROBILINOGEN,URINE 0.2 EU/dL (0.2)
[2023-05-06 02:09] LABS: ADD URINE CULTURE NO; BACTERIA,URINE Rare /HPF (None Seen); SQUAMOUS EPITHELIAL CELL,UR Few /HPF (None Seen); WBC,URINE 0-2 /HPF (0-3)
[2023-05-06 04:26] LABS: BASOPHILS % (AUTO) 0.1 % (0.0-2.0); EOSINOPHILS % (AUTO) 0.1 % (0.0-6.0); HEMATOCRIT 48 % (39-51); HEMOGLOBIN 15.9 g/dL (13.5-17.5); LYMPHOCYTES # (AUTO) 1.1 K/uL (0.8-4.8); LYMPHOCYTES % (AUTO) 11.3 % (20.0-44.0); MEAN CORPUSCULAR HEMOGLOBIN 31 PG (26.0-33.0); MEAN CORPUSCULAR HGB CONC 33 g/dl (31.0-36.0); MEAN CORPUSCULAR VOLUME 94 fL (80-96); MONOCYTES # (AUTO) 0.9 K/uL (0.1-1.30); MONOCYTES % (AUTO) 9.2 % (2.0-12.0); NEUTROPHILS % (AUTO) 79.3 % (43.0-81.0); PLATELET COUNT (AUTO) 140 K/uL (150-450); RED BLOOD CELL COUNT(AUTO) 5.11 MIL/uL (4.5-6.0); RED CELL DISTRIBUTION WIDTH 14.5 % (11.5-15.0); WHITE BLOOD COUNT (AUTO) 10.1 K/uL (4.3-11.0)
[2023-05-06 04:38] LABS: CARBON DIOXIDE 19 mmol/L (21-32); CHLORIDE 107 mmol/L (98-107); CREATININE 2.8 mg/dL (0.6-1.3); GLUCOSE 107 mg/dL (74-106); MAGNESIUM 1.8 mg/dL (1.8-2.4); POTASSIUM 4.3 mmol/L (3.5-5.1); SODIUM SERUM 142 mmol/L (136-145); UREA NITROGEN, BLOOD 34 mg/dL (7-18)
[2023-05-06 04:57] LABS: CHOLESTEROL 109 mg/dL (<200); HDL CHOLESTEROL 44 mg/dL (40-60); LDL 56 mg/dL (0-99); TRIGLYCERIDES 88 mg/dL (30-150)
[2023-05-06 05:41] LABS: ABG BASE EXCESS -9.8 mmol/L; ABG OXYGEN SATURATION 98.4 % (92.0-98.5); ABG PCO2 45.7 mmHg (35.0-45.0); ABG PH 7.212 (7.350-7.450); ABG PO2 126.6 mmHg (75.0-100.0); ABG TOTAL HEMOGLOBIN 16.2 G/dL (13.5-18.0); AaDO2 395.8 mmHg; COHb 0.4 % (0.5-1.5); MetHb 0.4 % (0.0-1.5); O2Hb 97.6 % (94.0-97.0); SITE, ABG Right Radial; VENT MODE, BG S/T 10 15/5 80%
[2023-05-06] MEDS ORDERED: Z GUARD REMEDY 4 OZ OINT TP PRN (08:00)
[2023-05-06] MEDS ORDERED: SODIUM BICARBONATE SYR 150 MEQ in IV NS 0.9% 1,000 ML IV PRN (08:30)
[2023-05-06] MEDS: DOCUSATE SODIUM 100 MG CAPSULE PO SCH (08:48)
[2023-05-06] MEDS: MULTIVITAMINS,THERAGRAN 1 UDTAB TABLET GT SCH (08:48)
[2023-05-06] MEDS: MINOXIDIL (2.5MG) 2.5 MG TABLET PO SCH (08:49)
[2023-05-06] MEDS: ASCORBIC ACID 500 MG TABLET PO SCH (08:50)
[2023-05-06] MEDS: PAROXETINE HCL 20 MG TABLET PO SCH (08:50)
[2023-05-06] MEDS: CHOLECALCIFEROL 1,000 UNIT TABLET (VIT D3) PO SCH (08:50)
[2023-05-06] MEDS: CLONIDINE HCL 0.2MG/24H PTWK 1 EA PATCH TD SCH (09:25)
[2023-05-06] MEDS: VANCOMYCIN 500 MG in IV D5W 100 ML IV ONE (09:25)
[2023-05-06] MEDS: HEPARIN SODIUM, PORCINE 5000 UNITS/1 ML VIAL SQ SCH (09:26)
[2023-05-06] MEDS: PANTOPRAZOLE 40 MG VIAL IV SCH (09:27)
[2023-05-06] MEDS: Z GUARD REMEDY 4 OZ OINT TP SCH (09:27)
[2023-05-06] MEDS: Sodium Bicarbonate 150 MEQ in IV D5W 1,000 ML IV SCH (09:29)
[2023-05-06 10:32] LABS: ABG BASE EXCESS -3.6 mmol/L; ABG OXYGEN SATURATION 97.6 % (92.0-98.5); ABG PH 7.332 (7.350-7.450); ABG PO2 93.8 mmHg (75.0-100.0); ABG TOTAL HEMOGLOBIN 15.9 G/dL (13.5-18.0); AaDO2 286.7 mmHg; COHb 0.5 % (0.5-1.5); MetHb 0.4 % (0.0-1.5); O2Hb 96.7 % (94.0-97.0); SITE, ABG Right Radial
[2023-05-06] MEDS: CEFEPIME 1 GM in IV D5W 50 ML IV SCH (10:35)
[2023-05-06] MEDS: methylPREDNISolone SOD SUCC 125 MG/2ML VIAL IV SCH (10:35)
[2023-05-06] MEDS: ACETAMINOPHEN 650 MG/SUPP.RECT RC PRN (12:28)
[2023-05-06] MEDS: ATORVASTATIN 10 MG TABLET PO SCH (21:01)
[2023-05-06] MEDS: AMLODIPINE BESYLATE 5 MG TABLET PO SCH (21:01)
[2023-05-06] MEDS: QUETIAPINE FUMARATE 25 MG TABLET PO SCH (21:01)
[2023-05-07] VITALS (26 sets, daily range): BP systolic 100–169; BP diastolic 56–101; TEMP 98–99.5; O2SAT 88–99
[2023-05-07 05:17] LABS: HEMATOCRIT 39 % (39-51); LYMPHOCYTES # (AUTO) 1.2 K/uL (0.8-4.8); LYMPHOCYTES % (AUTO) 10.7 % (20.0-44.0); MEAN CORPUSCULAR HEMOGLOBIN 31 PG (26.0-33.0); MEAN CORPUSCULAR HGB CONC 33 g/dl (31.0-36.0); MEAN CORPUSCULAR VOLUME 93 fL (80-96); MONOCYTES # (AUTO) 0.6 K/uL (0.1-1.30); MONOCYTES % (AUTO) 5.3 % (2.0-12.0); NEUTROPHILS # (AUTO) 9.7 K/uL (1.8-8.9); PLATELET COUNT (AUTO) 106 K/uL (150-450); RED BLOOD CELL COUNT(AUTO) 4.23 MIL/uL (4.5-6.0); RED CELL DISTRIBUTION WIDTH 14.4 % (11.5-15.0); WHITE BLOOD COUNT (AUTO) 11.5 K/uL (4.3-11.0)
[2023-05-07 05:46] LABS: ALANINE AMINOTRANSFERASE 22 U/L (12-78); ALBUMIN 2.7 g/dL (3.4-5.0); ALKALINE PHOSPHATASE 54 U/L (46-116); ASPARTATE AMINOTRANSFERASE 42 U/L (15-37); BILIRUBIN,TOTAL 0.5 mg/dL (0.2-1.0); CALCIUM, SERUM 7.7 mg/dL (8.5-10.1); CARBON DIOXIDE 28 mmol/L (21-32); CHLORIDE 107 mmol/L (98-107); CREATININE 1.7 mg/dL (0.6-1.3); GLUCOSE 204 mg/dL (74-106); MAGNESIUM 1.9 mg/dL (1.8-2.4); PHOSPHORUS 1.6 mg/dL (2.5-4.9); POTASSIUM 3.3 mmol/L (3.5-5.1); SODIUM SERUM 146 mmol/L (136-145); UREA NITROGEN, BLOOD 29 mg/dL (7-18)
[2023-05-07 06:00] LABS: CREATINE KINASE, TOTAL 2130 U/L (39-308)
[2023-05-07] MEDS: POTASSIUM CL. PREMIX PERIPHER. 50 ML IV SCH (07:51)
[2023-05-07 08:30] LABS: ABG BASE EXCESS 5.5 mmol/L; ABG OXYGEN SATURATION 92.6 % (92.0-98.5); ABG PCO2 39.8 mmHg (35.0-45.0); ABG PH 7.485 (7.350-7.450); ABG PO2 57.2 mmHg (75.0-100.0); ABG TOTAL HEMOGLOBIN 13.7 G/dL (13.5-18.0); AaDO2 153.3 mmHg; COHb 0.2 % (0.5-1.5); MetHb 0.2 % (0.0-1.5); O2Hb 92.2 % (94.0-97.0); SITE, ABG Right Brachial; VENT MODE, BG NASAL CANNULA
[2023-05-07] MEDS: IV D5/ 0.9% NACL 1,000 ML IV SCH (09:30)
[2023-05-07 09:33] LABS: INR 1.19 (0.91-1.10); PARTIAL THROMBOPLASTIN TIME 36.2 SEC (24.3-34.3); PROTHROMBIN TIME 12.5 SECS (9.2-11.1)
[2023-05-07] MEDS: HEPARIN SODIUM, PORCINE 5000 UNITS/1 ML VIAL IV ONE (10:43)
[2023-05-07] MEDS: HEPARIN INFUSION/D5W 500 ML IV PRN (11:23)
[2023-05-07] MEDS: VANCOMYCIN 1 GM in IV D5W 250 ML IV SCH (12:50)
[2023-05-07] MEDS ORDERED: VANCOMYCIN 1 GM in IV D5W 250 ML IV SCH ×2 (13:00→21:00)
[2023-05-07] MEDS: K PHOS NEUTRAL 250 MG TABLET PO ONE (17:33)
[2023-05-08] VITALS (24 sets, daily range): BP systolic 91–147; BP diastolic 51–88; TEMP 98–99.2; O2SAT 96–100
[2023-05-08 03:11] LABS: PTH, INTACT 107 pg/mL (15-65)
[2023-05-08 07:28] LABS: BASOPHILS % (AUTO) 0.1 % (0.0-2.0); HEMATOCRIT 33 % (39-51); LYMPHOCYTES % (AUTO) 14.5 % (20.0-44.0); MEAN CORPUSCULAR HEMOGLOBIN 31 PG (26.0-33.0); MEAN CORPUSCULAR HGB CONC 33 g/dl (31.0-36.0); MEAN CORPUSCULAR VOLUME 93 fL (80-96); MONOCYTES # (AUTO) 0.6 K/uL (0.1-1.30); MONOCYTES % (AUTO) 7.9 % (2.0-12.0); NEUTROPHILS # (AUTO) 5.6 K/uL (1.8-8.9); NEUTROPHILS % (AUTO) 77.5 % (43.0-81.0); PLATELET COUNT (AUTO) 83 K/uL (150-450); RED BLOOD CELL COUNT(AUTO) 3.56 MIL/uL (4.5-6.0); RED CELL DISTRIBUTION WIDTH 14.1 % (11.5-15.0); WHITE BLOOD COUNT (AUTO) 7.2 K/uL (4.3-11.0)
[2023-05-08 08:01] LABS: CALCIUM, SERUM 6.9 mg/dL (8.5-10.1); CARBON DIOXIDE 27 mmol/L (21-32); CHLORIDE 108 mmol/L (98-107); CREATININE 1.5 mg/dL (0.6-1.3); GLUCOSE 227 mg/dL (74-106); PHOSPHORUS 2.2 mg/dL (2.5-4.9); POTASSIUM 3.6 mmol/L (3.5-5.1); SODIUM SERUM 145 mmol/L (136-145); UREA NITROGEN, BLOOD 31 mg/dL (7-18)
[2023-05-08] MEDS: PANTOPRAZOLE 40 MG/PACK PACK PO SCH (09:58)
[2023-05-08 11:37] LABS: BAND % (MANUAL) 9 % (0.0-5.0); EOSINOPHILS % (MANUAL) 0 % (0-4); LYMPHOCYTES % (MANUAL) 14 % (16-48); MONOCYTES % (MANUAL) 2 % (0-11.0); NEUTROPHILS % (MANUAL) 75 (42-76)
[2023-05-08 11:38] LABS: PLATELET ESTIMATE DECREASED
[2023-05-08] MEDS: K PHOS NEUTRAL 250 MG TABLET PO ONE (15:19)
[2023-05-09] VITALS (25 sets, daily range): BP systolic 107–162; BP diastolic 63–103; TEMP 98–98.8; O2SAT 87–100
[2023-05-09 04:48] LABS: CALCIUM, SERUM 7.1 mg/dL (8.5-10.1); CREATININE 1.3 mg/dL (0.6-1.3); POTASSIUM 3.3 mmol/L (3.5-5.1)
[2023-05-09 07:26] LABS: BASOPHILS % (AUTO) 0.1 % (0.0-2.0); HEMATOCRIT 33 % (39-51); HEMOGLOBIN 10.9 g/dL (13.5-17.5); LYMPHOCYTES # (AUTO) 0.7 K/uL (0.8-4.8); LYMPHOCYTES % (AUTO) 10.4 % (20.0-44.0); MEAN CORPUSCULAR HEMOGLOBIN 31 PG (26.0-33.0); MEAN CORPUSCULAR HGB CONC 33 g/dl (31.0-36.0); MEAN CORPUSCULAR VOLUME 94 fL (80-96); MONOCYTES # (AUTO) 0.4 K/uL (0.1-1.30); MONOCYTES % (AUTO) 5.1 % (2.0-12.0); NEUTROPHILS # (AUTO) 5.8 K/uL (1.8-8.9); NEUTROPHILS % (AUTO) 84.4 % (43.0-81.0); PLATELET COUNT (AUTO) 74 K/uL (150-450); RED BLOOD CELL COUNT(AUTO) 3.48 MIL/uL (4.5-6.0); RED CELL DISTRIBUTION WIDTH 14.1 % (11.5-15.0); WHITE BLOOD COUNT (AUTO) 6.9 K/uL (4.3-11.0)
[2023-05-09 07:30] LABS: INR 1.08 (0.91-1.10); PARTIAL THROMBOPLASTIN TIME 25.2 SEC (24.3-34.3); PROTHROMBIN TIME 11.4 SECS (9.2-11.1)
[2023-05-09] MEDS: POTASSIUM CL. PREMIX PERIPHER. 50 ML IV SCH (08:19)
[2023-05-09 09:27] LABS: ABG BASE EXCESS -0.8 mmol/L; ABG OXYGEN SATURATION 98.9 % (92.0-98.5); ABG PCO2 40.7 mmHg (35.0-45.0); ABG PO2 167.5 mmHg (75.0-100.0); ABG TOTAL HEMOGLOBIN 12.2 G/dL (13.5-18.0); AaDO2 143.2 mmHg; COHb 0.3 % (0.5-1.5); MetHb 0.1 % (0.0-1.5); O2Hb 98.5 % (94.0-97.0); SITE, ABG Right Radial; VENT MODE, BG bipap 15/5 rr18
[2023-05-09] MEDS: ALBUTEROL HALF STRENGTH 1.25 MG/3 ML VIAL.NEB NEB SCH (09:31)
[2023-05-09] MEDS: IPRATROPIUM NEB FS 0.5 MG/2.5 ML AMPUL.NEB NEB SCH (09:31)
[2023-05-09] MEDS: IV D5/ 0.9% NACL 1,000 ML IV PRN (11:17)
[2023-05-09 11:28] LABS: ANISOCYTOSIS 1+; BAND % (MANUAL) 14 % (0.0-5.0); BASOPHILS % (MANUAL) 0 % (0.0-2.0); EOSINOPHILS % (MANUAL) 0 % (0-4); LYMPHOCYTES % (MANUAL) 10 % (16-48); MONOCYTES % (MANUAL) 3 % (0-11.0); NEUTROPHILS % (MANUAL) 73 (42-76); PLATELET ESTIMATE DECREASED
[2023-05-09] MEDS ORDERED: VANCOMYCIN 1.25 GM in IV D5W 250 ML IV SCH (13:00)
[2023-05-09] MEDS: IV 1/2NS 1000 ML 1,000 ML IV PRN (15:00)
[2023-05-09] MEDS: ARGATROBAN 250 MG in IV D5W 247.5 ML IV PRN (16:21)
[2023-05-09 16:25] LABS: C-REACTIVE PROTEIN 4.6 mg/dL (0.0-0.30); THYROID STIMULATING HORMONE 0.833 uIU/mL (0.358-3.74)
[2023-05-09 18:46] LABS: RHEUMATOID FACTOR SCREEN NEGATIVE (NEGATIVE)
[2023-05-09] MEDS: DOXYCYCLINE HYCLATE (100 MG) 100 MG TABLET PO SCH (21:18)
[2023-05-10] VITALS (24 sets, daily range): BP systolic 119–167; BP diastolic 64–97; TEMP 97.8–98.2; O2SAT 79–99
[2023-05-10 04:19] LABS: CALCIUM, SERUM 7.5 mg/dL (8.5-10.1); CREATININE 1.3 mg/dL (0.6-1.3); POTASSIUM 3.6 mmol/L (3.5-5.1)
[2023-05-10 04:28] LABS: HEMATOCRIT 34 % (39-51); HEMOGLOBIN 11.3 g/dL (13.5-17.5); LYMPHOCYTES # (AUTO) 0.8 K/uL (0.8-4.8); MEAN CORPUSCULAR HEMOGLOBIN 30 PG (26.0-33.0); MEAN CORPUSCULAR HGB CONC 33 g/dl (31.0-36.0); MEAN CORPUSCULAR VOLUME 93 fL (80-96); MONOCYTES # (AUTO) 0.4 K/uL (0.1-1.30); NEUTROPHILS # (AUTO) 6.7 K/uL (1.8-8.9); PLATELET COUNT (AUTO) 79 K/uL (150-450); RED BLOOD CELL COUNT(AUTO) 3.71 MIL/uL (4.5-6.0); WHITE BLOOD COUNT (AUTO) 7.9 K/uL (4.3-11.0)
[2023-05-10 04:37] LABS: D-DIMER 3.21 mg/L(FEU (0.17-0.50); INR 3.15 (0.91-1.10)
[2023-05-10 05:19] LABS: BAND % (MANUAL) 7 % (0.0-5.0); EOSINOPHILS % (MANUAL) 0 % (0-4); LYMPHOCYTES % (MANUAL) 9 % (16-48); MONOCYTES % (MANUAL) 4 % (0-11.0); NEUTROPHILS % (MANUAL) 80 (42-76); PLATELET ESTIMATE DECREASED
[2023-05-11] VITALS (26 sets, daily range): BP systolic 129–157; BP diastolic 69–131; TEMP 97.9–98.3; O2SAT 88–100
[2023-05-11 04:04] LABS: BASOPHILS % (AUTO) 0.1 % (0.0-2.0); HEMATOCRIT 35 % (39-51); HEMOGLOBIN 11.6 g/dL (13.5-17.5); LYMPHOCYTES # (AUTO) 0.6 K/uL (0.8-4.8); LYMPHOCYTES % (AUTO) 8.8 % (20.0-44.0); MEAN CORPUSCULAR HEMOGLOBIN 31 PG (26.0-33.0); MEAN CORPUSCULAR HGB CONC 33 g/dl (31.0-36.0); MEAN CORPUSCULAR VOLUME 92 fL (80-96); MONOCYTES # (AUTO) 0.3 K/uL (0.1-1.30); MONOCYTES % (AUTO) 4.7 % (2.0-12.0); NEUTROPHILS # (AUTO) 6.1 K/uL (1.8-8.9); NEUTROPHILS % (AUTO) 86.4 % (43.0-81.0); PLATELET COUNT (AUTO) 82 K/uL (150-450); RED BLOOD CELL COUNT(AUTO) 3.78 MIL/uL (4.5-6.0); RED CELL DISTRIBUTION WIDTH 13.6 % (11.5-15.0)
[2023-05-11 04:16] LABS: CALCIUM, SERUM 7.6 mg/dL (8.5-10.1); POTASSIUM 3.7 mmol/L (3.5-5.1)
[2023-05-11 05:43] LABS: ANISOCYTOSIS 1+; BAND % (MANUAL) 9 % (0.0-5.0); BASOPHILS % (MANUAL) 0 % (0.0-2.0); EOSINOPHILS % (MANUAL) 0 % (0-4); LYMPHOCYTES % (MANUAL) 7 % (16-48); MONOCYTES % (MANUAL) 5 % (0-11.0); NEUTROPHILS % (MANUAL) 79 (42-76); PLATELET ESTIMATE DECREASED
[2023-05-11] MEDS: ALPRAZOLAM 0.25 MG TABLET PO PRN (09:36)
[2023-05-11 10:09] LABS: *ANA ANTI-CENTROMERE B AB <0.2 AI (0.0-0.9); *ANA ANTI-DNA(DS) AB, QN 1 IU/mL (0-9); *ANA ANTI-JO-1 <0.2 AI (0.0-0.9); *ANA ANTICHROMATIN ANTIBODY <0.2 AI (0.0-0.9); *ANA RNP ANTIBODIES <0.2 AI (0.0-0.9); *ANA SJOGREN'S ANTI-SS-A <0.2 AI (0.0-0.9); *ANA SJOGREN'S ANTI-SS-B <0.2 AI (0.0-0.9); *ANAANTI-SCLERODERMA-70 AB <0.2 AI (0.0-0.9); *ANASMITH AB <0.2 AI (0.0-0.9)
[2023-05-12] VITALS (26 sets, daily range): BP systolic 108–168; BP diastolic 62–93; TEMP 98–98.8; O2SAT 90–98
[2023-05-12 02:07] LABS: *SPE ALBUMIN 3.1 g/dL (2.9-4.4); *SPE ALPHA-1-GLOBULIN 0.4 g/dL (0.0-0.4); *SPE ALPHA-2-GLOBULIN 0.9 g/dL (0.4-1.0); *SPE BETA GLOBULIN 1.1 g/dL (0.7-1.3); *SPE GLOBULIN, TOTAL 3.2 g/dL (2.2-3.9); *SPE M-SPIKE Not Observed g/dL (Not Observed); *SPE PROTEIN TOTAL 6.3 g/dL (6.0-8.5); *SPEGAMMA GLOBULIN 0.9 g/dL (0.4-1.8)
[2023-05-12 04:34] LABS: BASOPHILS % (AUTO) 0.1 % (0.0-2.0); HEMATOCRIT 36 % (39-51); HEMOGLOBIN 12.1 g/dL (13.5-17.5); LYMPHOCYTES # (AUTO) 0.7 K/uL (0.8-4.8); LYMPHOCYTES % (AUTO) 11.8 % (20.0-44.0); MEAN CORPUSCULAR HEMOGLOBIN 31 PG (26.0-33.0); MEAN CORPUSCULAR HGB CONC 34 g/dl (31.0-36.0); MEAN CORPUSCULAR VOLUME 91 fL (80-96); MONOCYTES # (AUTO) 0.4 K/uL (0.1-1.30); MONOCYTES % (AUTO) 6.6 % (2.0-12.0); NEUTROPHILS # (AUTO) 5.1 K/uL (1.8-8.9); NEUTROPHILS % (AUTO) 81.5 % (43.0-81.0); PLATELET COUNT (AUTO) 95 K/uL (150-450); RED BLOOD CELL COUNT(AUTO) 3.91 MIL/uL (4.5-6.0); RED CELL DISTRIBUTION WIDTH 13.3 % (11.5-15.0); WHITE BLOOD COUNT (AUTO) 6.3 K/uL (4.3-11.0)
[2023-05-12 04:35] LABS: CALCIUM, SERUM 7.5 mg/dL (8.5-10.1); CREATININE 1.1 mg/dL (0.6-1.3); POTASSIUM 3.5 mmol/L (3.5-5.1)
[2023-05-12 05:12] LABS: *SPE A/G RATIO 0.9 (0.7-1.7); *SPE ALBUMIN 2.6 g/dL (2.9-4.4); *SPE ALPHA-1-GLOBULIN 0.3 g/dL (0.0-0.4); *SPE ALPHA-2-GLOBULIN 0.9 g/dL (0.4-1.0); *SPE BETA GLOBULIN 0.9 g/dL (0.7-1.3); *SPE M-SPIKE Not Observed g/dL (Not Observed); *SPE PROTEIN TOTAL 5.6 g/dL (6.0-8.5)
[2023-05-12 05:18] LABS: BAND % (MANUAL) 7 % (0.0-5.0); BASOPHILS % (MANUAL) 0 % (0.0-2.0); EOSINOPHILS % (MANUAL) 0 % (0-4); LYMPHOCYTES % (MANUAL) 12 % (16-48); MONOCYTES % (MANUAL) 5 % (0-11.0); NEUTROPHILS % (MANUAL) 76 (42-76); PLATELET ESTIMATE DECREASED
[2023-05-12 07:08] LABS: FOLIC ACID 10.8 ng/mL (>3.0); HEPATITIS B SURFACE AB Non Reactive (.)
[2023-05-12 08:10] LABS: HAPTOGLOBIN 292 mg/dL (34-355); IMMUNOGLOBULIN A, SERUM 331 mg/dL (61-437); IMMUNOGLOBULIN G, SERUM 999 mg/dL (603-1613); IMMUNOGLOBULIN M, SERUM 36 mg/dL (15-143)
[2023-05-12] MEDS ORDERED: hydrALAZINE HCL IV 20 MG VIAL IV PRN (09:30)
[2023-05-12] MEDS: FUROSEMIDE 40 MG/4 ML VIAL IV ONE (10:35)
[2023-05-12] MEDS: APIXABAN 5 MG TABLET PO SCH (16:13)
[2023-05-13] VITALS (34 sets, daily range): BP systolic 101–155; BP diastolic 55–90; TEMP 97.6–98.7; O2SAT 91–100
[2023-05-13 03:39] LABS: BASOPHILS % (AUTO) 0.1 % (0.0-2.0); HEMATOCRIT 37 % (39-51); HEMOGLOBIN 12.7 g/dL (13.5-17.5); LYMPHOCYTES # (AUTO) 0.9 K/uL (0.8-4.8); LYMPHOCYTES % (AUTO) 9.3 % (20.0-44.0); MEAN CORPUSCULAR HEMOGLOBIN 31 PG (26.0-33.0); MEAN CORPUSCULAR HGB CONC 34 g/dl (31.0-36.0); MEAN CORPUSCULAR VOLUME 90 fL (80-96); MONOCYTES # (AUTO) 0.5 K/uL (0.1-1.30); MONOCYTES % (AUTO) 4.9 % (2.0-12.0); NEUTROPHILS # (AUTO) 7.9 K/uL (1.8-8.9); NEUTROPHILS % (AUTO) 85.7 % (43.0-81.0); PLATELET COUNT (AUTO) 124 K/uL (150-450); RED BLOOD CELL COUNT(AUTO) 4.13 MIL/uL (4.5-6.0); RED CELL DISTRIBUTION WIDTH 13.3 % (11.5-15.0); WHITE BLOOD COUNT (AUTO) 9.2 K/uL (4.3-11.0)
[2023-05-13 03:48] LABS: CALCIUM, SERUM 7.5 mg/dL (8.5-10.1); CARBON DIOXIDE 26 mmol/L (21-32); CHLORIDE 103 mmol/L (98-107); CREATININE 1.2 mg/dL (0.6-1.3); GLUCOSE 179 mg/dL (74-106); POTASSIUM 3.3 mmol/L (3.5-5.1); SODIUM SERUM 138 mmol/L (136-145); UREA NITROGEN, BLOOD 28 mg/dL (7-18)
[2023-05-13] MEDS: POTASSIUM CHLORIDE 20 MEQ TAB.PRT.SR PO ONE (08:06)
[2023-05-13 14:09] LABS: HEPARIN INDUCED PLT AB 0.066 OD (0.000-0.400)
[2023-05-14] VITALS (18 sets, daily range): BP systolic 102–146; BP diastolic 54–95; TEMP 97.8–98.5; O2SAT 89–99
[2023-05-14 03:49] LABS: CALCIUM, SERUM 7.6 mg/dL (8.5-10.1); CREATININE 1.2 mg/dL (0.6-1.3); POTASSIUM 4.3 mmol/L (3.5-5.1)
[2023-05-14 03:51] LABS: BASOPHILS % (AUTO) 0.1 % (0.0-2.0); HEMATOCRIT 36 % (39-51); LYMPHOCYTES # (AUTO) 0.9 K/uL (0.8-4.8); LYMPHOCYTES % (AUTO) 8.2 % (20.0-44.0); MEAN CORPUSCULAR HEMOGLOBIN 31 PG (26.0-33.0); MEAN CORPUSCULAR HGB CONC 34 g/dl (31.0-36.0); MEAN CORPUSCULAR VOLUME 92 fL (80-96); MONOCYTES # (AUTO) 0.4 K/uL (0.1-1.30); MONOCYTES % (AUTO) 3.8 % (2.0-12.0); NEUTROPHILS # (AUTO) 9.6 K/uL (1.8-8.9); NEUTROPHILS % (AUTO) 87.9 % (43.0-81.0); PLATELET COUNT (AUTO) 160 K/uL (150-450); RED CELL DISTRIBUTION WIDTH 13.4 % (11.5-15.0); WHITE BLOOD COUNT (AUTO) 10.9 K/uL (4.3-11.0)
[2023-05-14] MEDS ORDERED: methylPREDNISolone SOD SUCC 125 MG/2ML VIAL IV SCH (09:00)
[2023-05-14] MEDS: methylPREDNISolone SOD SUCC 125 MG/2ML VIAL IV SCH (11:00)
[2023-05-15] VITALS (20 sets, daily range): BP systolic 110–130; BP diastolic 65–88; TEMP 97.7–99.2; O2SAT 93–98
[2023-05-15 07:00] LABS: BASOPHILS % (AUTO) 0.1 % (0.0-2.0); HEMATOCRIT 37 % (39-51); HEMOGLOBIN 12.4 g/dL (13.5-17.5); LYMPHOCYTES # (AUTO) 0.8 K/uL (0.8-4.8); LYMPHOCYTES % (AUTO) 6.2 % (20.0-44.0); MEAN CORPUSCULAR HEMOGLOBIN 31 PG (26.0-33.0); MEAN CORPUSCULAR HGB CONC 33 g/dl (31.0-36.0); MEAN CORPUSCULAR VOLUME 92 fL (80-96); MONOCYTES # (AUTO) 0.6 K/uL (0.1-1.30); MONOCYTES % (AUTO) 4.5 % (2.0-12.0); NEUTROPHILS # (AUTO) 10.8 K/uL (1.8-8.9); NEUTROPHILS % (AUTO) 89.2 % (43.0-81.0); PLATELET COUNT (AUTO) 134 K/uL (150-450); RED BLOOD CELL COUNT(AUTO) 4.04 MIL/uL (4.5-6.0); RED CELL DISTRIBUTION WIDTH 13.7 % (11.5-15.0); WHITE BLOOD COUNT (AUTO) 12.2 K/uL (4.3-11.0)
[2023-05-15] MEDS: APIXABAN 5 MG TABLET PO SCH (09:31)
[2023-05-15] MEDS: ACETAMINOPHEN 325 MG TABLET PO PRN (11:05)
[2023-05-16] VITALS (15 sets, daily range): BP systolic 103–139; BP diastolic 56–70; TEMP 97.9–98.6; O2SAT 94–100
[2023-05-16 07:47] LABS: HEMATOCRIT 39 % (39-51); HEMOGLOBIN 12.7 g/dL (13.5-17.5); LYMPHOCYTES # (AUTO) 0.8 K/uL (0.8-4.8); LYMPHOCYTES % (AUTO) 6.5 % (20.0-44.0); MEAN CORPUSCULAR HEMOGLOBIN 30 PG (26.0-33.0); MEAN CORPUSCULAR HGB CONC 33 g/dl (31.0-36.0); MEAN CORPUSCULAR VOLUME 92 fL (80-96); MONOCYTES # (AUTO) 0.5 K/uL (0.1-1.30); MONOCYTES % (AUTO) 4.2 % (2.0-12.0); NEUTROPHILS # (AUTO) 10.6 K/uL (1.8-8.9); NEUTROPHILS % (AUTO) 89.3 % (43.0-81.0); PLATELET COUNT (AUTO) 119 K/uL (150-450); RED CELL DISTRIBUTION WIDTH 13.7 % (11.5-15.0); WHITE BLOOD COUNT (AUTO) 11.8 K/uL (4.3-11.0)
[2023-05-16 08:08] LABS: CALCIUM, SERUM 7.6 mg/dL (8.5-10.1); CREATININE 0.9 mg/dL (0.6-1.3); POTASSIUM 4.2 mmol/L (3.5-5.1)
[2023-05-17] VITALS (14 sets, daily range): BP systolic 105–151; BP diastolic 48–67; TEMP 97.5–98.4; O2SAT 94–98
[2023-05-17 08:31] LABS: CALCIUM, SERUM 7.4 mg/dL (8.5-10.1); CREATININE 0.9 mg/dL (0.6-1.3); POTASSIUM 4.4 mmol/L (3.5-5.1)
[2023-05-17 10:36] LABS: HEMATOCRIT 40 % (39-51); HEMOGLOBIN 13.3 g/dL (13.5-17.5); LYMPHOCYTES # (AUTO) 0.8 K/uL (0.8-4.8); LYMPHOCYTES % (AUTO) 7.1 % (20.0-44.0); MEAN CORPUSCULAR HEMOGLOBIN 31 PG (26.0-33.0); MEAN CORPUSCULAR HGB CONC 34 g/dl (31.0-36.0); MEAN CORPUSCULAR VOLUME 92 fL (80-96); MONOCYTES # (AUTO) 0.5 K/uL (0.1-1.30); MONOCYTES % (AUTO) 4.4 % (2.0-12.0); NEUTROPHILS # (AUTO) 9.8 K/uL (1.8-8.9); NEUTROPHILS % (AUTO) 88.5 % (43.0-81.0); PLATELET COUNT (AUTO) 128 K/uL (150-450); RED BLOOD CELL COUNT(AUTO) 4.33 MIL/uL (4.5-6.0); RED CELL DISTRIBUTION WIDTH 13.5 % (11.5-15.0)
[2023-05-17] MEDS: FUROSEMIDE 20 MG/2 ML VIAL IV STA (12:10)
[2023-05-17] MEDS ORDERED: DOXY100T2 PO (20:13)
[2023-05-17] MEDS ORDERED: APIX5TAB PO (20:13)
[2023-05-18] MEDS ORDERED: predniSONE 20 MG TABLET PO SCH (09:00)
== END 2023-05-17 19:00 | DRG 871 ==
LOC: ER 17:11 → ICU 20:00 → TELE 05-14 15:33 → MED 05-17 09:14
PROVIDERS: ADMIT Nurse Practitioner Acute Care; ATTEND Internal Medicine
PROC: 5A09457 Assistance with Respiratory Ventilation, 24-96 Consecutive Hours, Continuous Positive Airway Pressure (ICD-10-PCS; principal; 2023-05-05)
PROC: 05HY33Z Insertion of Infusion Device into Upper Vein, Percutaneous Approach (ICD-10-PCS; 2023-05-07)
PROC: 5A09357 Assistance with Respiratory Ventilation, Less than 24 Consecutive Hours, Continuous Positive Airway Pressure (ICD-10-PCS; 2023-05-08)
DX: A41.9 Sepsis, unspecified organism (principal); J15.69 Pneumonia due to other Gram-negative bacteria; J96.01 Acute respiratory failure with hypoxia; J96.02 Acute respiratory failure with hypercapnia; I13.0 Hypertensive heart and chronic kidney disease with heart failure and stage 1 through stage 4 chronic kidney disease, or unspecified chronic kidney disease; N17.9 Acute kidney failure, unspecified; D61.818 Other pancytopenia; I82.412 Acute embolism and thrombosis of left femoral vein; I69.354 Hemiplegia and hemiparesis following cerebral infarction affecting left non-dominant side; L03.116 Cellulitis of left lower limb; E87.0 Hyperosmolality and hypernatremia; E87.20 Acidosis, unspecified; J84.9 Interstitial pulmonary disease, unspecified; E87.4 Mixed disorder of acid-base balance; E86.0 Dehydration; I50.9 Heart failure, unspecified; N18.9 Chronic kidney disease, unspecified; E78.5 Hyperlipidemia, unspecified; E86.1 Hypovolemia; F32.9 Major depressive disorder, single episode, unspecified; F41.9 Anxiety disorder, unspecified; I16.0 Hypertensive urgency; R04.0 Epistaxis; M89.8X9 Other specified disorders of bone, unspecified site; Z86.718 Personal history of other venous thrombosis and embolism; E11.22 Type 2 diabetes mellitus with diabetic chronic kidney disease; I87.2 Venous insufficiency (chronic) (peripheral); E66.9 Obesity, unspecified; Z68.29 Body mass index [BMI] 29.0-29.9, adult; I25.10 Atherosclerotic heart disease of native coronary artery without angina pectoris; D75.829 Heparin-induced thrombocytopenia, unspecified; Z20.822 Contact with and (suspected) exposure to COVID-19
CPT/HCPCS: 31720; 36410; 36415; 36600; 71045-TC; 76700-TC; 76770-TC; 80048-TC; 80053-TC; 80061-TC; 80076-TC; 80202-TC; 81001; 82550-TC; 82553; 82607-TC; 82728-TC; 82784; 82803-TC; 83010; 83540-TC; 83605-TC; 83615-TC; 83735-TC; 83880; 83970; 84100-TC; 84155; 84165; 84443-TC; 84484-TC; 85025-TC; 85045-TC; 85378-TC; 85396; 85610-TC; 85730-TC; 86022; 86140-TC; 86225; 86235; 86334; 86431-TC; 86706; 86803; 86850-TC; 86880-TC; 87040-TC; 87081-TC; 87086-TC; 87340; 92526; 92611-TC; 93307-TC; 93970-TC; 94799-TC; A4223; C9113; G0378; J0692; J0883; J1644; J1940; J2930; J3370; J3480; J3490; J7030; J7042; J7050; J7060; J7070; Q9967

== ENCOUNTER 2024-03-13 14:17 | Inpatient (IN) | payer MEDICARE, OTHER ==
[~2024-03-13] VITALS: Ht 167.6 cm; Wt 69.9 kg
[2024-03-13] VITALS (12 sets, daily range): BP systolic 122–142; BP diastolic 69–85; TEMP 97.5–97.8; O2SAT 88–98
[~2024-03-13 14:17] MED LIST changes: -AMIN30LI2 PO; +AMIN30LI66 PO; +APIX5TAB PO; -CLOP75TA15 PO; +DOXY100T2 PO; +ONDA4TAB5 PO; +PROM118S5 PO; -[UNRECOGNIZED DRUG - OTHER] PO
[2024-03-13 14:43] LABS: BASOPHILS # (AUTO) 0.1 K/uL (0.0-0.2); BASOPHILS % (AUTO) 0.4 % (0.0-2.0); EOSINOPHILS # (AUTO) 0.6 K/uL (0.0-0.7); EOSINOPHILS % (AUTO) 3.6 % (0.0-6.0); HEMATOCRIT 42 % (39-51); HEMOGLOBIN 14.5 g/dL (13.5-17.5); LYMPHOCYTES # (AUTO) 1.3 K/uL (0.8-4.8); LYMPHOCYTES % (AUTO) 8.3 % (20.0-44.0); MEAN CORPUSCULAR HEMOGLOBIN 32 PG (26.0-33.0); MEAN CORPUSCULAR HGB CONC 34 g/dl (31.0-36.0); MEAN CORPUSCULAR VOLUME 94 fL (80-96); MONOCYTES # (AUTO) 0.8 K/uL (0.1-1.30); NEUTROPHILS # (AUTO) 13.5 K/uL (1.8-8.9); NEUTROPHILS % (AUTO) 82.7 % (43.0-81.0); PLATELET COUNT (AUTO) 160 K/uL (150-450); RED BLOOD CELL COUNT(AUTO) 4.51 MIL/uL (4.5-6.0); WHITE BLOOD COUNT (AUTO) 16.3 K/uL (4.3-11.0)
[2024-03-13] MEDS ORDERED: VANCOMYCIN 1 GM /D5W 250 ML PB IV ONE (14:45)
[2024-03-13] MEDS ORDERED: dexaMETHasone SOD PHOSPHATE 1 ML ONE (14:45)
[2024-03-13] MEDS ORDERED: Magnesium 1GM/D5W 100ML PREMIX 100 ML IV ONE ×2 (14:45→15:44)
[2024-03-13 14:53] LABS: CALCIUM, SERUM 8.7 mg/dL (8.5-10.1); CARBON DIOXIDE 30 mmol/L (21-32); CHLORIDE 105 mmol/L (98-107); CREATININE 1.3 mg/dL (0.6-1.3); GLUCOSE 165 mg/dL (74-106); POTASSIUM 4.4 mmol/L (3.5-5.1); SODIUM SERUM 143 mmol/L (136-145); UREA NITROGEN, BLOOD 19 mg/dL (7-18)
[2024-03-13 15:02] LABS: LACTIC ACID 1.8 mmol/L (0.4-2.0)
[2024-03-13] MEDS: IV NS 0.9% 500 ML BAG IV ONE (15:03)
[2024-03-13] MEDS: Magnesium 1GM/D5W 100ML PREMIX 200 ML IV ONE (15:03)
[2024-03-13] MEDS: VANCOMYCIN 1 GM in IV D5W 250 ML IV ONE (15:04)
[2024-03-13] MEDS: dexaMETHasone SOD PHOSPHATE 10 MG/ML VIAL IV ONE (15:05)
[2024-03-13 15:07] LABS: ALANINE AMINOTRANSFERASE 20 U/L (12-78); ALBUMIN 3.5 g/dL (3.4-5.0); ALKALINE PHOSPHATASE 74 U/L (46-116); ASPARTATE AMINOTRANSFERASE 18 U/L (15-37); BILIRUBIN,DIRECT 0.1 mg/dL (0.0-0.2); BILIRUBIN,TOTAL 0.5 mg/dL (0.2-1.0); NT-PRO BNP 1149 pg/mL (0-125); TOTAL PROTEIN, SERUM 8.3 g/dL (6.4-8.2)
[2024-03-13 15:18] LABS: ABG BASE EXCESS -2.4 mmol/L (-2.0-3.0); ABG OXYGEN SATURATION 98.8 % (94.0-98.0); ABG PCO2 44.7 mmHg (35.0-48.0); ABG PH 7.339 (7.350-7.450); ABG PO2 140.9 mmHg (83.0-108.0); ABG TOTAL HEMOGLOBIN 14.3 G/dL (13.5-17.5); COHb 0.3 % (0.5-1.5); MetHb 0.2 % (0.0-1.5); O2Hb 98.3 % (94.0-97.0); SITE, ABG RIGHT RADIAL
[2024-03-13] MEDS ORDERED: IPRA3AMP23 IH (15:18)
[2024-03-13] MEDS ORDERED: GUAI-1189 PO (15:18)
[2024-03-13] MEDS ORDERED: TRIA80CR12 TP (15:18)
[2024-03-13] MEDS ORDERED: APIX2.5T PO (15:18)
[2024-03-13] MEDS ORDERED: CRAN3875 PO (15:18)
[2024-03-13] MEDS ORDERED: ZINC50TA39 PO (15:18)
[2024-03-13] MEDS ORDERED: OMEG100037 PO (15:18)
[2024-03-13] MEDS ORDERED: CLOP75TA15 PO (15:18)
[2024-03-13] MEDS ORDERED: ALBUTEROL FS 2.5 MG/3 ML VIAL.NEB ONE (15:28)
[2024-03-13] MEDS ORDERED: IPRATROPIUM NEB FS 0.5 MG/2.5 ML AMPUL.NEB ONE (15:29)
[2024-03-13] MEDS: IPRATROPIUM NEB FS 0.5 MG/2.5 ML AMPUL.NEB NEB ONE (15:32)
[2024-03-13] MEDS: ALBUTEROL FS 2.5 MG/3 ML VIAL.NEB NEB ONE (15:32)
[2024-03-13] MEDS: CEFEPIME 1 GM in IV D5W 50 ML IV ONE (15:40)
[2024-03-13] MEDS ORDERED: IV NS 0.9% 1,000 ML BAG IV ONE (16:00)
[2024-03-13 17:38] LABS: INR 1.13 (0.91-1.10); PARTIAL THROMBOPLASTIN TIME 35.5 SEC (24.3-34.3); PROTHROMBIN TIME 11.9 SECS (9.2-11.1)
[2024-03-13] MEDS ORDERED: hydrALAZINE HCL IV 20 MG VIAL IV PRN (18:00)
[2024-03-13] MEDS ORDERED: ONDANSETRON HCL/PF 4 MG/2 ML VIAL IVP PRN (18:00)
[2024-03-13] MEDS ORDERED: MORPHINE SULFATE INJ 2 MG/ML DISP.SYRIN IV PRN (18:00)
[2024-03-13] MEDS ORDERED: ALBUTEROL FS 2.5 MG/0.5 ML VIAL.NEB NEB PRN (18:00)
[2024-03-13 18:07] LABS: APPEARANCE,URINE CLEAR (CLEAR); BILIRUBIN,URINE NEGATIVE (NEGATIVE); BLOOD, URINE 1+ Ery/uL (NEGATIVE); COLOR,URINE YELLOW (YELLOW); KETONES,URINE NEGATIVE (NEGATIVE); LEUKOCYTE ESTERASE ,URINE NEGATIVE (NEGATIVE); NITRITE, URINE POSITIVE (NEGATIVE); PH,URINE 5.5 (5.0-8.0); PROTEIN,URINE 3+ mg/dl (NEGATIVE); UGLUCOSE NEGATIVE (NEGATIVE); UROBILINOGEN,URINE 0.2 EU/dL (0.2)
[2024-03-13 18:23] LABS: ADD URINE CULTURE YES; BACTERIA,URINE Few /HPF (None Seen); SQUAMOUS EPITHELIAL CELL,UR None Seen /HPF (None Seen)
[2024-03-13] MEDS: FUROSEMIDE 20 MG/2 ML VIAL IV SCH (18:40)
[2024-03-13] MEDS: ALBUTEROL FS 2.5 MG/3 ML VIAL.NEB NEB SCH (19:38)
[2024-03-13] MEDS: IPRATROPIUM NEB FS 0.5 MG/2.5 ML AMPUL.NEB HHN SCH (19:38)
[2024-03-13] MEDS ORDERED: IOHEXOL-350 100 ML VIAL IV ONE (20:58)
[2024-03-13] MEDS ORDERED: IV NS 0.9% 250 ML IV ONE (20:58)
[2024-03-13] MEDS: CARVEDILOL 6.25 MG TABLET PO SCH (21:50)
[2024-03-13] MEDS: AMLODIPINE BESYLATE 5 MG TABLET PO SCH (22:01)
[2024-03-14] VITALS (34 sets, daily range): BP systolic 98–138; BP diastolic 53–87; TEMP 97.8–98.8; O2SAT 89–99
[2024-03-14] MEDS: CEFEPIME 2 GM in IV D5W 100 ML IV SCH (04:09)
[2024-03-14 05:21] LABS: BASOPHILS % (AUTO) 0.1 % (0.0-2.0); HEMATOCRIT 38 % (39-51); HEMOGLOBIN 12.6 g/dL (13.5-17.5); LYMPHOCYTES # (AUTO) 1.3 K/uL (0.8-4.8); LYMPHOCYTES % (AUTO) 10.8 % (20.0-44.0); MEAN CORPUSCULAR HEMOGLOBIN 31 PG (26.0-33.0); MEAN CORPUSCULAR HGB CONC 33 g/dl (31.0-36.0); MEAN CORPUSCULAR VOLUME 94 fL (80-96); MONOCYTES # (AUTO) 0.3 K/uL (0.1-1.30); MONOCYTES % (AUTO) 2.5 % (2.0-12.0); NEUTROPHILS # (AUTO) 10.1 K/uL (1.8-8.9); NEUTROPHILS % (AUTO) 86.6 % (43.0-81.0); PLATELET COUNT (AUTO) 138 K/uL (150-450); RED BLOOD CELL COUNT(AUTO) 4.02 MIL/uL (4.5-6.0); RED CELL DISTRIBUTION WIDTH 14.4 % (11.5-15.0); WHITE BLOOD COUNT (AUTO) 11.6 K/uL (4.3-11.0)
[2024-03-14 05:37] LABS: ALANINE AMINOTRANSFERASE 16 U/L (12-78); ALBUMIN 2.9 g/dL (3.4-5.0); ALKALINE PHOSPHATASE 59 U/L (46-116); ASPARTATE AMINOTRANSFERASE 12 U/L (15-37); BILIRUBIN,TOTAL 0.3 mg/dL (0.2-1.0); CALCIUM, SERUM 8.5 mg/dL (8.5-10.1); CREATININE 1.4 mg/dL (0.6-1.3); GLUCOSE 183 mg/dL (74-106); MAGNESIUM 2.4 mg/dL (1.8-2.4); PHOSPHORUS 2.1 mg/dL (2.5-4.9); TOTAL PROTEIN, SERUM 7.2 g/dL (6.4-8.2); UREA NITROGEN, BLOOD 21 mg/dL (7-18)
[2024-03-14 05:58] LABS: CARBON DIOXIDE 25 mmol/L (21-32); CHLORIDE 107 mmol/L (98-107); POTASSIUM 3.8 mmol/L (3.5-5.1); SODIUM SERUM 141 mmol/L (136-145)
[2024-03-14 07:58] LABS: ABG BASE EXCESS -2.8 mmol/L (-2.0-3.0); ABG OXYGEN SATURATION 97.4 % (94.0-98.0); ABG PCO2 37.8 mmHg (35.0-48.0); ABG PH 7.381 (7.350-7.450); ABG PO2 93.3 mmHg (83.0-108.0); ABG TOTAL HEMOGLOBIN 13.5 G/dL (13.5-17.5); COHb 0.3 % (0.5-1.5); MetHb 0.1 % (0.0-1.5); SITE, ABG RIGHT RADIAL
[2024-03-14] MEDS ORDERED: APIXABAN 2.5 MG TABLET PO SCH (09:00)
[2024-03-14] MEDS: PANTOPRAZOLE 40 MG TABLET.DR PO SCH (09:07)
[2024-03-14] MEDS: PAROXETINE HCL 20 MG TABLET PO SCH (09:07)
[2024-03-14] MEDS: APIXABAN 2.5 MG TABLET PO SCH ×2 (09:08→16:56)
[2024-03-14] MEDS: clonazePAM 0.5 MG TABLET PO SCH (09:08)
[2024-03-14] MEDS: ACETAMINOPHEN 325 MG TABLET PO PRN (09:08)
[2024-03-14] MEDS: CLOPIDOGREL BISULFATE 75 MG TABLET PO SCH (09:09)
[2024-03-14] MEDS: MINOXIDIL (2.5MG) 2.5 MG TABLET PO SCH (09:10)
[2024-03-14] MEDS: methylPREDNISolone SOD SUCC 125 MG/2ML VIAL IV SCH (10:36)
[2024-03-14] MEDS: VANCOMYCIN HCL 1.25 GM in IV D5W 250 ML IV SCH (14:39)
[2024-03-14] MEDS: K PHOS NEUTRAL 250 MG TABLET PO ONE (16:55)
[2024-03-14] MEDS ORDERED: IV NS 0.9% 250 ML IV PRN (19:00)
[2024-03-15] VITALS (17 sets, daily range): BP systolic 95–146; BP diastolic 66–89; TEMP 97.5–98.2; O2SAT 93–99
[2024-03-15 05:22] LABS: CALCIUM, SERUM 8.7 mg/dL (8.5-10.1); CARBON DIOXIDE 27 mmol/L (21-32); CHLORIDE 105 mmol/L (98-107); CREATININE 1.2 mg/dL (0.6-1.3); GLUCOSE 143 mg/dL (74-106); POTASSIUM 3.8 mmol/L (3.5-5.1); SODIUM SERUM 142 mmol/L (136-145); UREA NITROGEN, BLOOD 35 mg/dL (7-18)
[2024-03-15] MEDS ORDERED: IV NS 0.9% 250 ML IV PRN (15:30)
[2024-03-16] VITALS (12 sets, daily range): BP systolic 112–136; BP diastolic 68–85; TEMP 97.7–98.2; O2SAT 92–98
[2024-03-16 07:24] LABS: CALCIUM, SERUM 8.3 mg/dL (8.5-10.1); CREATININE 1.2 mg/dL (0.6-1.3); POTASSIUM 3.7 mmol/L (3.5-5.1)
[2024-03-17] VITALS (13 sets, daily range): BP systolic 110–136; BP diastolic 58–70; TEMP 97.7–98.2; O2SAT 92–100
[2024-03-17 06:59] LABS: CALCIUM, SERUM 8.3 mg/dL (8.5-10.1); CREATININE 1.2 mg/dL (0.6-1.3); POTASSIUM 3.8 mmol/L (3.5-5.1)
[2024-03-17] MEDS: methylPREDNISolone SOD SUCC 125 MG/2ML VIAL IV SCH (16:21)
[2024-03-18] VITALS (7 sets, daily range): BP systolic 126–142; BP diastolic 74–91; TEMP 98.5; O2SAT 91–98
[2024-03-18 07:28] LABS: CALCIUM, SERUM 8.5 mg/dL (8.5-10.1); POTASSIUM 4.4 mmol/L (3.5-5.1)
[2024-03-18] MEDS ORDERED: APIX5TAB PO (14:37)
[2024-03-18] MEDS ORDERED: NITR100C6 PO (14:37)
[2024-03-18] MEDS ORDERED: CEFE2FRO IV (14:37)
[2024-03-18] MEDS ORDERED: METH4TAB17 PO (14:38)
== END 2024-03-18 17:30 | DRG 871 ==
LOC: ER 14:17 → ICU 16:42 → TELE1 03-15 10:38 → TELE-TD 03-15 10:50 → TELE1 03-16 08:42 → MEDSG1 03-17 10:10
PROVIDERS: ADMIT Internal Medicine; ATTEND Nurse Practitioner Acute Care
DX: A41.9 Sepsis, unspecified organism (principal); I50.33 Acute on chronic diastolic (congestive) heart failure; J96.21 Acute and chronic respiratory failure with hypoxia; J15.9 Unspecified bacterial pneumonia; N17.0 Acute kidney failure with tubular necrosis; I13.0 Hypertensive heart and chronic kidney disease with heart failure and stage 1 through stage 4 chronic kidney disease, or unspecified chronic kidney disease; J44.0 Chronic obstructive pulmonary disease with (acute) lower respiratory infection; N39.0 Urinary tract infection, site not specified; I69.354 Hemiplegia and hemiparesis following cerebral infarction affecting left non-dominant side; I82.412 Acute embolism and thrombosis of left femoral vein; J21.9 Acute bronchiolitis, unspecified; Z16.24 Resistance to multiple antibiotics; E11.22 Type 2 diabetes mellitus with diabetic chronic kidney disease; B96.20 Unspecified Escherichia coli [E. coli] as the cause of diseases classified elsewhere; I25.10 Atherosclerotic heart disease of native coronary artery without angina pectoris; Z79.01 Long term (current) use of anticoagulants; Z86.718 Personal history of other venous thrombosis and embolism; Z87.891 Personal history of nicotine dependence; Z99.81 Dependence on supplemental oxygen; Z20.822 Contact with and (suspected) exposure to COVID-19; N18.9 Chronic kidney disease, unspecified
CPT/HCPCS: 36415; 36600; 71045-TC; 80048-TC; 80053-TC; 80076-TC; 80202-TC; 81001; 82803-TC; 83605-TC; 83735-TC; 83880; 84100-TC; 84484-TC; 85025-TC; 85730-TC; 87040-TC; 87081-TC; 87086-TC; 92526; 92611-TC; 93307-TC; 93970-TC; 94799-TC; A4223; G0378; J0692; J1100; J1940; J2919; J3370; J3475; J7040; J7050; J7060; Q9967

== ENCOUNTER 2024-04-15 20:50 | Inpatient (IN) | payer MEDICARE, OTHER ==
[~2024-04-15] VITALS: Ht 177.8 cm; Wt 70.8 kg
[~2024-04-15 20:50] MED LIST changes: +CEFE2FRO IV; +CLOP75TA15 PO; +CRAN3875 PO; -CRAN425C6 PO; -DOXY100T2 PO; +GUAI-1189 PO; +IPRA3AMP23 IH; +METH4TAB17 PO; +NITR100C6 PO; +OMEG100037 PO; -ONDA4TAB5 PO; -PRAV10TA40 PO; -PROM118S5 PO; -QUET25TA PO; +TRIA80CR12 TP; +ZINC50TA39 PO
[2024-04-15] MEDS ORDERED: PROPOFOL 20 ML IV ONE (21:07)
[2024-04-15] MEDS: PROPOFOL 200 MG/20 ML VIAL IV ONE (21:20)
[2024-04-15] MEDS ORDERED: FUROSEMIDE 40 MG/4 ML VIAL ONE ×2 (21:22→21:57)
[2024-04-15] MEDS ORDERED: PROPOFOL 100 ML ONE (21:28)
[2024-04-15] MEDS: FUROSEMIDE 40 MG/4 ML VIAL IV ONE (21:30)
[2024-04-15 21:35] LABS: EOSINOPHILS % (AUTO) 0.1 % (0.0-6.0); HEMOGLOBIN 13.9 g/dL (13.5-17.5); LYMPHOCYTES # (AUTO) 1.2 K/uL (0.8-4.8); MONOCYTES # (AUTO) 1.5 K/uL (0.1-1.30)
[2024-04-15 21:38] LABS: BASOPHILS % (AUTO) 0.3 % (0.0-2.0); HEMATOCRIT 42 % (39-51); LYMPHOCYTES % (AUTO) 9.7 % (20.0-44.0); MEAN CORPUSCULAR HEMOGLOBIN 31 PG (26.0-33.0); MEAN CORPUSCULAR HGB CONC 33 g/dl (31.0-36.0); MEAN CORPUSCULAR VOLUME 95 fL (80-96); NEUTROPHILS # (AUTO) 9.9 K/uL (1.8-8.9); NEUTROPHILS % (AUTO) 77.9 % (43.0-81.0); PLATELET COUNT (AUTO) 174 K/uL (150-450); RED BLOOD CELL COUNT(AUTO) 4.45 MIL/uL (4.5-6.0); RED CELL DISTRIBUTION WIDTH 14.3 % (11.5-15.0); WHITE BLOOD COUNT (AUTO) 12.7 K/uL (4.3-11.0)
[2024-04-15] MEDS: PROPOFOL 100 ML IV ONE (21:41)
[2024-04-15 21:47] LABS: INR 1.27 (0.91-1.10); PARTIAL THROMBOPLASTIN TIME 32.4 SEC (24.3-34.3)
[2024-04-15 21:54] LABS: CALCIUM, SERUM 8.9 mg/dL (8.5-10.1); CARBON DIOXIDE 28 mmol/L (21-32); CHLORIDE 102 mmol/L (98-107); GLUCOSE 118 mg/dL (74-106); POTASSIUM 3.8 mmol/L (3.5-5.1); SODIUM SERUM 139 mmol/L (136-145); UREA NITROGEN, BLOOD 22 mg/dL (7-18)
[2024-04-15] MEDS ORDERED: PIPERACI/TAZO 3.375GM/D5W 50ML PB IV ONE (21:57)
[2024-04-15] MEDS ORDERED: ACETAMINOPHEN 650 MG/SUPP.RECT RC ONE (21:58)
[2024-04-15] MEDS: ACETAMINOPHEN 650 MG/SUPP.RECT RC ONE (22:00)
[2024-04-15] MEDS: PIPERACILLIN /TAZOBACTAM 3.375 G in IV D5W 50 ML IV ONE ×2 (22:00→22:30)
[2024-04-15 22:06] LABS: ALANINE AMINOTRANSFERASE 19 U/L (12-78); ALBUMIN 3.4 g/dL (3.4-5.0); ALKALINE PHOSPHATASE 78 U/L (46-116); ASPARTATE AMINOTRANSFERASE 24 U/L (15-37); BILIRUBIN,DIRECT 0.1 mg/dL (0.0-0.2); BILIRUBIN,TOTAL 0.5 mg/dL (0.2-1.0); NT-PRO BNP 2169 pg/mL (0-125); TOTAL PROTEIN, SERUM 7.6 g/dL (6.4-8.2)
[2024-04-15 22:51] LABS: APPEARANCE,URINE CLEAR (CLEAR); BILIRUBIN,URINE NEGATIVE (NEGATIVE); BLOOD, URINE 3+ Ery/uL (NEGATIVE); COLOR,URINE YELLOW (YELLOW); KETONES,URINE NEGATIVE (NEGATIVE); LEUKOCYTE ESTERASE ,URINE NEGATIVE (NEGATIVE); NITRITE, URINE NEGATIVE (NEGATIVE); PROTEIN,URINE 2+ mg/dl (NEGATIVE); UGLUCOSE NEGATIVE (NEGATIVE); UROBILINOGEN,URINE 0.2 EU/dL (0.2)
[2024-04-15 23:00] LABS: BACTERIA,URINE Moderate /HPF (None Seen); RBC,URINE TOO NUMEROUS TO COUN /HPF (0-2); SQUAMOUS EPITHELIAL CELL,UR Few /HPF (None Seen)
[2024-04-15] MEDS ORDERED: ONDANSETRON HCL/PF 4 MG/2 ML VIAL IVP PRN (23:00)
[2024-04-15] MEDS ORDERED: NOREPINEPHRINE 8 MG in IV D5W 242 ML IV PRN (23:00)
[2024-04-15] MEDS ORDERED: PROPOFOL 100 ML IV PRN (23:00)
[2024-04-15 23:01] LABS: ADD URINE CULTURE YES
[2024-04-15 23:16] LABS: BAND % (MANUAL) 11 % (0.0-5.0); BASOPHILS % (MANUAL) 0 % (0.0-2.0); EOSINOPHILS % (MANUAL) 0 % (0-4); LYMPHOCYTES % (MANUAL) 12 % (16-48); METAMYELOCYTES % 1 % (0-0); MONOCYTES % (MANUAL) 12 % (0-11.0); MYELOCYTES % 1 % (0-0); NEUTROPHILS % (MANUAL) 63 (42-76); PLATELET ESTIMATE ADEQUATE
[2024-04-15 23:38] LABS: ABG BASE EXCESS -5.6 mmol/L (-2.0-3.0); ABG OXYGEN SATURATION 99.6 % (94.0-98.0); ABG PCO2 39.9 mmHg (35.0-48.0); ABG PH 7.319 (7.350-7.450); ABG PO2 473.2 mmHg (83.0-108.0); ABG TOTAL HEMOGLOBIN 14.7 G/dL (13.5-17.5); COHb 0.3 % (0.5-1.5); MetHb 0.3 % (0.0-1.5); PEEP,BG 5 cm H2O; SITE, ABG RIGHT RADIAL; VT, ABG 550 mL
[2024-04-15] MEDS ORDERED: NOREPINEPHRINE 8MG/250ML RTU 250 ML IV ONE (23:48)
[2024-04-15] MEDS: NOREPINEPHRINE 8 MG in IV D5W 242 ML IV PRN (23:56)
[2024-04-16] VITALS (96 sets, daily range): BP systolic 67–141; BP diastolic 56–91; TEMP 98.7–99.4; O2SAT 90–98
[2024-04-16] MEDS: PROPOFOL 100 ML IV PRN (00:59)
[2024-04-16] MEDS: ENOXAPARIN SODIUM 30 MG/0.3 ML DISP.SYRIN SQ SCH (01:05)
[2024-04-16] MEDS: ALBUTEROL FS 2.5 MG/3 ML VIAL.NEB CONTNEB SCH (01:11)
[2024-04-16] MEDS: IPRATROPIUM NEB FS 0.5 MG/2.5 ML AMPUL.NEB NEB SCH ×2 (01:11→07:35)
[2024-04-16] MEDS: NOREPINEPHRINE 8MG/250ML RTU 250 ML IV ONE (04:42)
[2024-04-16 04:48] LABS: BASOPHILS # (AUTO) 0.1 K/uL (0.0-0.2); BASOPHILS % (AUTO) 0.3 % (0.0-2.0); HEMATOCRIT 42 % (39-51); HEMOGLOBIN 13.7 g/dL (13.5-17.5); LYMPHOCYTES # (AUTO) 2.6 K/uL (0.8-4.8); LYMPHOCYTES % (AUTO) 13.1 % (20.0-44.0); MEAN CORPUSCULAR HEMOGLOBIN 31 PG (26.0-33.0); MEAN CORPUSCULAR HGB CONC 33 g/dl (31.0-36.0); MEAN CORPUSCULAR VOLUME 96 fL (80-96); MONOCYTES # (AUTO) 2.4 K/uL (0.1-1.30); MONOCYTES % (AUTO) 12.2 % (2.0-12.0); NEUTROPHILS # (AUTO) 14.6 K/uL (1.8-8.9); NEUTROPHILS % (AUTO) 74.4 % (43.0-81.0); PLATELET COUNT (AUTO) 172 K/uL (150-450); RED BLOOD CELL COUNT(AUTO) 4.38 MIL/uL (4.5-6.0); RED CELL DISTRIBUTION WIDTH 14.6 % (11.5-15.0); WHITE BLOOD COUNT (AUTO) 19.6 K/uL (4.3-11.0)
[2024-04-16 05:06] LABS: ALANINE AMINOTRANSFERASE 16 U/L (12-78); ALBUMIN 3.3 g/dL (3.4-5.0); ALKALINE PHOSPHATASE 74 U/L (46-116); ASPARTATE AMINOTRANSFERASE 26 U/L (15-37); BILIRUBIN,DIRECT 0.3 mg/dL (0.0-0.2); BILIRUBIN,TOTAL 0.6 mg/dL (0.2-1.0); CALCIUM, SERUM 8.5 mg/dL (8.5-10.1); CARBON DIOXIDE 25 mmol/L (21-32); CHLORIDE 102 mmol/L (98-107); CREATININE 2.6 mg/dL (0.6-1.3); GLUCOSE 100 mg/dL (74-106); MAGNESIUM 1.7 mg/dL (1.8-2.4); PHOSPHORUS 5.6 mg/dL (2.5-4.9); POTASSIUM 3.3 mmol/L (3.5-5.1); SODIUM SERUM 141 mmol/L (136-145); TOTAL PROTEIN, SERUM 7.7 g/dL (6.4-8.2); UREA NITROGEN, BLOOD 30 mg/dL (7-18)
[2024-04-16] MEDS: ALBUTEROL FS 2.5 MG/3 ML VIAL.NEB NEB SCH (07:49)
[2024-04-16] MEDS: ZOSYN IVPB 2.25 G in IV D5W 50ml IV SCH (08:49)
[2024-04-16] MEDS: PANTOPRAZOLE 40 MG VIAL IV SCH (08:50)
[2024-04-16] MEDS: FUROSEMIDE 20 MG/2 ML VIAL IV SCH (08:50)
[2024-04-16] MEDS: IV NS 0.9% 250 ML IV PRN (08:51)
[2024-04-16] MEDS: Z GUARD REMEDY 4 OZ OINT TP PRN (08:51)
[2024-04-16] MEDS ORDERED: BETA45CR3 TP (09:01)
[2024-04-16] MEDS ORDERED: APIX5TAB PO (09:01)
[2024-04-16] MEDS ORDERED: ZINC220T4 PO (09:01)
[2024-04-16] MEDS: IV NS 0.9% 500 ML IV ONE (11:09)
[2024-04-16] MEDS: ENOXAPARIN SODIUM 40 MG/0.4 ML DISP.SYRIN SQ ONE (11:20)
[2024-04-16] MEDS: HYDROCORTISONE SOD SUCCINATE 100 MG/2 ML VIAL IV SCH (13:23)
[2024-04-16 13:49] LABS: APPEARANCE,URINE TURBID (CLEAR); BILIRUBIN,URINE NEGATIVE (NEGATIVE); BLOOD, URINE 3+ Ery/uL (NEGATIVE); COLOR,URINE YELLOW (YELLOW); KETONES,URINE NEGATIVE (NEGATIVE); LEUKOCYTE ESTERASE ,URINE NEGATIVE (NEGATIVE); NITRITE, URINE NEGATIVE (NEGATIVE); PH,URINE 5.5 (5.0-8.0); PROTEIN,URINE 2+ mg/dl (NEGATIVE); UGLUCOSE NEGATIVE (NEGATIVE); UROBILINOGEN,URINE 0.2 EU/dL (0.2)
[2024-04-16 14:00] LABS: CREATININE, URINE 39.3 MG/DL (30.0-125.0); URINE TOTAL PROTEIN 38.4 mg/dL (0-11.9)
[2024-04-16 14:19] LABS: ADD URINE CULTURE YES; BACTERIA,URINE 2+ /HPF (None Seen); CALCIUM OXALATE CRYSTALS,UR Few /HPF (None Seen); COARSE GRANULAR CASTS,URINE Few /LPF (None Seen); RBC,URINE 81-100 /HPF (0-2)
[2024-04-16 16:30] LABS: EOSINOPHIL,URINE None Seen
[2024-04-16] MEDS ORDERED: ENOXAPARIN SODIUM 60 MG/0.6 ML DISP.SYRIN SQ SCH (21:00)
[2024-04-17] VITALS (96 sets, daily range): BP systolic 85–137; BP diastolic 54–86; TEMP 98.5–99.8; O2SAT 90–98
[2024-04-17 04:44] LABS: BASOPHILS % (AUTO) 0.1 % (0.0-2.0); HEMATOCRIT 36 % (39-51); HEMOGLOBIN 12.3 g/dL (13.5-17.5); LYMPHOCYTES # (AUTO) 1.8 K/uL (0.8-4.8); LYMPHOCYTES % (AUTO) 12.2 % (20.0-44.0); MEAN CORPUSCULAR HEMOGLOBIN 32 PG (26.0-33.0); MEAN CORPUSCULAR HGB CONC 34 g/dl (31.0-36.0); MEAN CORPUSCULAR VOLUME 94 fL (80-96); MONOCYTES # (AUTO) 0.8 K/uL (0.1-1.30); MONOCYTES % (AUTO) 5.5 % (2.0-12.0); NEUTROPHILS # (AUTO) 11.9 K/uL (1.8-8.9); NEUTROPHILS % (AUTO) 82.2 % (43.0-81.0); PLATELET COUNT (AUTO) 137 K/uL (150-450); RED BLOOD CELL COUNT(AUTO) 3.85 MIL/uL (4.5-6.0); RED CELL DISTRIBUTION WIDTH 14.8 % (11.5-15.0); WHITE BLOOD COUNT (AUTO) 14.4 K/uL (4.3-11.0)
[2024-04-17 04:58] LABS: ALANINE AMINOTRANSFERASE 12 U/L (12-78); ALBUMIN 2.5 g/dL (3.4-5.0); ALKALINE PHOSPHATASE 60 U/L (46-116); ASPARTATE AMINOTRANSFERASE 24 U/L (15-37); BILIRUBIN,TOTAL 0.5 mg/dL (0.2-1.0); CALCIUM, SERUM 7.8 mg/dL (8.5-10.1); CARBON DIOXIDE 26 mmol/L (21-32); CHLORIDE 104 mmol/L (98-107); CREATINE KINASE, TOTAL 637 U/L (39-308); CREATININE 2.4 mg/dL (0.6-1.3); GLUCOSE 169 mg/dL (74-106); MAGNESIUM 1.9 mg/dL (1.8-2.4); PHOSPHORUS 4.2 mg/dL (2.5-4.9); POTASSIUM 3.6 mmol/L (3.5-5.1); SODIUM SERUM 140 mmol/L (136-145); TOTAL PROTEIN, SERUM 6.7 g/dL (6.4-8.2); UREA NITROGEN, BLOOD 36 mg/dL (7-18)
[2024-04-17] MEDS: APIXABAN 5 MG TABLET PO SCH (08:07)
[2024-04-17 11:07] LABS: ABG BASE EXCESS -3.3 mmol/L (-2.0-3.0); ABG OXYGEN SATURATION 97.8 % (94.0-98.0); ABG PCO2 38.2 mmHg (35.0-48.0); ABG PH 7.369 (7.350-7.450); ABG PO2 101.4 mmHg (83.0-108.0); ABG TOTAL HEMOGLOBIN 13.3 G/dL (13.5-17.5); COHb 0.3 % (0.5-1.5); MetHb 0.2 % (0.0-1.5); O2Hb 97.3 % (94.0-97.0); PEEP,BG 5 cm H2O; SITE, ABG RIGHT RADIAL; VT, ABG 450 mL
[2024-04-18] VITALS (64 sets, daily range): BP systolic 102–158; BP diastolic 60–95; TEMP 97.4–98.7; O2SAT 91–99
[2024-04-18 04:53] LABS: BASOPHILS % (AUTO) 0.1 % (0.0-2.0); HEMATOCRIT 35 % (39-51); HEMOGLOBIN 11.9 g/dL (13.5-17.5); LYMPHOCYTES # (AUTO) 0.7 K/uL (0.8-4.8); LYMPHOCYTES % (AUTO) 5.7 % (20.0-44.0); MEAN CORPUSCULAR HEMOGLOBIN 31 PG (26.0-33.0); MEAN CORPUSCULAR HGB CONC 34 g/dl (31.0-36.0); MEAN CORPUSCULAR VOLUME 94 fL (80-96); MONOCYTES # (AUTO) 0.5 K/uL (0.1-1.30); MONOCYTES % (AUTO) 4.5 % (2.0-12.0); NEUTROPHILS # (AUTO) 10.4 K/uL (1.8-8.9); NEUTROPHILS % (AUTO) 89.7 % (43.0-81.0); PLATELET COUNT (AUTO) 136 K/uL (150-450); RED BLOOD CELL COUNT(AUTO) 3.78 MIL/uL (4.5-6.0); RED CELL DISTRIBUTION WIDTH 14.6 % (11.5-15.0); WHITE BLOOD COUNT (AUTO) 11.5 K/uL (4.3-11.0)
[2024-04-18 04:55] LABS: CALCIUM, SERUM 8.1 mg/dL (8.5-10.1); CREATININE 1.6 mg/dL (0.6-1.3); POTASSIUM 3.4 mmol/L (3.5-5.1)
[2024-04-18] MEDS: PRECEDEX 400 MCG/100 ML BOTTLE 100 ML IV PRN (10:46)
[2024-04-18 11:10] LABS: PTH, INTACT 134 pg/mL (15-65)
[2024-04-18] MEDS: POTASSIUM CL. PREMIX PERIPHER. 50 ML IV SCH (11:37)
[2024-04-19] VITALS (40 sets, daily range): BP systolic 107–145; BP diastolic 67–93; TEMP 98–98.5; O2SAT 92–99
[2024-04-19] MEDS: ACETAMINOPHEN 650 MG/SUPP.RECT RC PRN (00:08)
[2024-04-19 04:16] LABS: HEMATOCRIT 34 % (39-51); HEMOGLOBIN 11.2 g/dL (13.5-17.5); LYMPHOCYTES # (AUTO) 0.4 K/uL (0.8-4.8); LYMPHOCYTES % (AUTO) 4.4 % (20.0-44.0); MEAN CORPUSCULAR HEMOGLOBIN 31 PG (26.0-33.0); MEAN CORPUSCULAR HGB CONC 33 g/dl (31.0-36.0); MEAN CORPUSCULAR VOLUME 95 fL (80-96); MONOCYTES # (AUTO) 0.5 K/uL (0.1-1.30); MONOCYTES % (AUTO) 5.4 % (2.0-12.0); NEUTROPHILS # (AUTO) 7.6 K/uL (1.8-8.9); NEUTROPHILS % (AUTO) 90.2 % (43.0-81.0); PLATELET COUNT (AUTO) 107 K/uL (150-450); RED BLOOD CELL COUNT(AUTO) 3.57 MIL/uL (4.5-6.0); RED CELL DISTRIBUTION WIDTH 14.4 % (11.5-15.0); WHITE BLOOD COUNT (AUTO) 8.4 K/uL (4.3-11.0)
[2024-04-19 04:27] LABS: CALCIUM, SERUM 7.9 mg/dL (8.5-10.1); CREATININE 1.2 mg/dL (0.6-1.3)
[2024-04-19] MEDS: PANTOPRAZOLE 40 MG/PACK PACK GT SCH (09:41)
[2024-04-19] MEDS: POTASSIUM CHLORIDE 20 MEQ POWDER PACKET GT SCH (11:17)
[2024-04-19] MEDS: IV 1/2NS 1000 ML 1,000 ML IV PRN (18:14)
[2024-04-20] VITALS (34 sets, daily range): BP systolic 121–151; BP diastolic 56–109; TEMP 98–98.6; O2SAT 92–100
[2024-04-20 04:26] LABS: CALCIUM, SERUM 7.6 mg/dL (8.5-10.1); POTASSIUM 3.1 mmol/L (3.5-5.1)
[2024-04-20 09:07] LABS: *SPE A/G RATIO 0.8 (0.7-1.7); *SPE ALBUMIN 2.8 g/dL (2.9-4.4); *SPE ALPHA-1-GLOBULIN 0.4 g/dL (0.0-0.4); *SPE GLOBULIN, TOTAL 3.3 g/dL (2.2-3.9); *SPE M-SPIKE Not Observed g/dL (Not Observed); *SPE PROTEIN TOTAL 6.1 g/dL (6.0-8.5); *SPEGAMMA GLOBULIN 0.9 g/dL (0.4-1.8)
[2024-04-20] MEDS: ENOXAPARIN SODIUM 60 MG/0.6 ML DISP.SYRIN SQ SCH (10:47)
[2024-04-20] MEDS: POTASSIUM CL. PREMIX PERIPHER. 50 ML IV SCH (10:47)
[2024-04-20] MEDS: IV D5W 1,000 ML IV PRN (10:56)
[2024-04-20] MEDS: PIPERACILLIN /TAZOBACTAM 3.375 G in IV D5W 100 ML IV SCH (11:47)
[2024-04-20] MEDS: HYDROCORTISONE SOD SUCCINATE 100 MG/2 ML VIAL IV SCH (16:59)
[2024-04-21] VITALS (33 sets, daily range): BP systolic 100–165; BP diastolic 54–102; TEMP 98–98.5; O2SAT 88–100
[2024-04-21 03:55] LABS: CALCIUM, SERUM 6.9 mg/dL (8.5-10.1); CREATININE 0.9 mg/dL (0.6-1.3); POTASSIUM 2.9 mmol/L (3.5-5.1)
[2024-04-21] MEDS: POTASSIUM CHLORIDE 20 MEQ POWDER PACKET NG SCH (10:27)
[2024-04-22] VITALS (28 sets, daily range): BP systolic 98–163; BP diastolic 54–90; TEMP 97.6–99; O2SAT 91–100
[2024-04-22 05:05] LABS: CALCIUM, SERUM 7.3 mg/dL (8.5-10.1); CREATININE 0.8 mg/dL (0.6-1.3)
[2024-04-22] MEDS: POTASSIUM CHLORIDE 20 MEQ TAB.PRT.SR PO ONE (09:32)
[2024-04-23] VITALS (14 sets, daily range): BP systolic 114–156; BP diastolic 66–84; TEMP 97.3–99.5; O2SAT 90–99
[2024-04-23 06:40] LABS: CREATININE 0.9 mg/dL (0.6-1.3); POTASSIUM 3.4 mmol/L (3.5-5.1)
[2024-04-23] MEDS: HYDROCORTISONE SOD SUCCINATE 100 MG/2 ML VIAL IV SCH (08:23)
[2024-04-23] MEDS: POTASSIUM CHLORIDE 20 MEQ POWDER PACKET PO ONE (10:48)
[2024-04-23 11:16] LABS: BASOPHILS % (AUTO) 0.1 % (0.0-2.0); EOSINOPHILS # (AUTO) 0.3 K/uL (0.0-0.7); EOSINOPHILS % (AUTO) 3.9 % (0.0-6.0); HEMATOCRIT 34 % (39-51); HEMOGLOBIN 11.4 g/dL (13.5-17.5); LYMPHOCYTES % (AUTO) 15.2 % (20.0-44.0); MEAN CORPUSCULAR HEMOGLOBIN 32 PG (26.0-33.0); MEAN CORPUSCULAR HGB CONC 34 g/dl (31.0-36.0); MEAN CORPUSCULAR VOLUME 94 fL (80-96); MONOCYTES # (AUTO) 0.8 K/uL (0.1-1.30); MONOCYTES % (AUTO) 11.5 % (2.0-12.0); NEUTROPHILS # (AUTO) 4.6 K/uL (1.8-8.9); NEUTROPHILS % (AUTO) 69.3 % (43.0-81.0); PLATELET COUNT (AUTO) 163 K/uL (150-450); RED CELL DISTRIBUTION WIDTH 13.8 % (11.5-15.0); WHITE BLOOD COUNT (AUTO) 6.7 K/uL (4.3-11.0)
[2024-04-23 16:07] LABS: EOSINOPHILS % (MANUAL) 3 % (0-4); LYMPHOCYTES % (MANUAL) 17 % (16-48); MONOCYTES % (MANUAL) 8 % (0-11.0); NEUTROPHILS % (MANUAL) 72 (42-76)
[2024-04-23 16:08] LABS: ANISOCYTOSIS 1+
[2024-04-24] VITALS (13 sets, daily range): BP systolic 101–147; BP diastolic 59–89; TEMP 97.9–98.6; O2SAT 93–96
[2024-04-24 06:29] LABS: CALCIUM, SERUM 8.1 mg/dL (8.5-10.1)
[2024-04-24] MEDS ORDERED: POTASSIUM CHLORIDE 20 MEQ TAB.PRT.SR PO SCH (10:00)
[2024-04-24] MEDS: POTASSIUM CHLORIDE 20 MEQ POWDER PACKET PO SCH (10:52)
[2024-04-25] VITALS (11 sets, daily range): BP systolic 124–153; BP diastolic 75–92; TEMP 97.3–98.2; O2SAT 92–97
[2024-04-25 08:58] LABS: CALCIUM, SERUM 7.9 mg/dL (8.5-10.1); POTASSIUM 3.1 mmol/L (3.5-5.1)
[2024-04-25] MEDS: POTASSIUM CHLORIDE 20 MEQ TAB.PRT.SR PO ONE (12:27)
[2024-04-26] VITALS (12 sets, daily range): BP systolic 128–148; BP diastolic 76–98; TEMP 97.3–99; O2SAT 94–100
[2024-04-26] MEDS: VALACYCLOVIR HCL 500 MG TABLET PO SCH (11:23)
[2024-04-26] MEDS ORDERED: VALA500T PO (16:21)
[2024-04-26] MEDS ORDERED: PIPE3.379 IV (16:21)
[2024-04-26] MEDS: APIXABAN 5 MG TABLET PO SCH (17:19)
== END 2024-04-26 21:14 | DRG 871 ==
LOC: ER 20:55 → ICU 23:28 → TELE-TD 04-22 19:02 → TELE1 04-23 10:22 → MEDSG1 04-26 10:15
PROVIDERS: ADMIT Nurse Practitioner Family; ATTEND Nurse Practitioner Family
PROC: 5A1945Z Respiratory Ventilation, 24-96 Consecutive Hours (ICD-10-PCS; principal; 2024-04-15)
PROC: 0BH18EZ Insertion of Endotracheal Airway into Trachea, Via Natural or Artificial Opening Endoscopic (ICD-10-PCS; 2024-04-15)
DX: A41.9 Sepsis, unspecified organism (principal); J15.69 Pneumonia due to other Gram-negative bacteria; J96.01 Acute respiratory failure with hypoxia; J96.21 Acute and chronic respiratory failure with hypoxia; N17.0 Acute kidney failure with tubular necrosis; J69.0 Pneumonitis due to inhalation of food and vomit; R65.21 Severe sepsis with septic shock; J44.1 Chronic obstructive pulmonary disease with (acute) exacerbation; D68.59 Other primary thrombophilia; N39.0 Urinary tract infection, site not specified; J44.0 Chronic obstructive pulmonary disease with (acute) lower respiratory infection; I50.32 Chronic diastolic (congestive) heart failure; I69.354 Hemiplegia and hemiparesis following cerebral infarction affecting left non-dominant side; E87.0 Hyperosmolality and hypernatremia; D64.9 Anemia, unspecified; R13.10 Dysphagia, unspecified; Z79.01 Long term (current) use of anticoagulants; Z79.4 Long term (current) use of insulin; M89.8X9 Other specified disorders of bone, unspecified site; I25.10 Atherosclerotic heart disease of native coronary artery without angina pectoris; E87.6 Hypokalemia; E78.5 Hyperlipidemia, unspecified; Z86.718 Personal history of other venous thrombosis and embolism; E86.0 Dehydration; N18.9 Chronic kidney disease, unspecified; I11.0 Hypertensive heart disease with heart failure; B02.9 Zoster without complications; Z95.828 Presence of other vascular implants and grafts
CPT/HCPCS: 31720; 36415; 36600; 71045-TC; 76770-TC; 80048-TC; 80053-TC; 80076-TC; 81001; 82550-TC; 82553; 82570-TC; 82803-TC; 83605-TC; 83735-TC; 83880; 83970; 84100-TC; 84155; 84165; 84300-TC; 84443-TC; 84484-TC; 85025-TC; 85730-TC; 87040-TC; 87081-TC; 87086-TC; 92526; 92611-TC; 93307-TC; 93970-TC; 94002-TC; 94003-TC; 94760-TC; 94762-TC; 94799-TC; 97110-TC; 97112-TC; 97530-TC; 99082-TC; A4223; A4624; G0378; J1650; J1720; J1940; J2470; J2543; J2704; J3480; J3490; J7040; J7042; J7050; J7060; J7070

== ENCOUNTER 2024-06-11 01:10 | Emergency (ER) | payer MEDICARE, OTHER ==
[~2024-06-11] VITALS: Ht 177.8 cm; Wt 72.6 kg
[~2024-06-11 01:10] MED LIST changes: -AMIN30LI66 PO; +BETA45CR3 TP; -CEFE2FRO IV; -CRAN3875 PO; -HYDR-4384 PO; -METH4TAB17 PO; -NITR100C6 PO; +PIPE3.379 IV; -TRIA80CR12 TP; +VALA500T PO; +ZINC220T4 PO; -ZINC50TA39 PO
[2024-06-11 01:47] VITALS: BP 159/58; TEMP 98; O2SAT 96
== END 2024-06-11 04:27 ==
LOC: ER 01:23
DX: S09.90XA Unspecified injury of head, initial encounter (principal); F41.9 Anxiety disorder, unspecified; I12.9 Hypertensive chronic kidney disease with stage 1 through stage 4 chronic kidney disease, or unspecified chronic kidney disease; N18.9 Chronic kidney disease, unspecified; E11.22 Type 2 diabetes mellitus with diabetic chronic kidney disease; Z79.01 Long term (current) use of anticoagulants; Z79.899 Other long term (current) drug therapy; Z86.73 Personal history of transient ischemic attack (TIA), and cerebral infarction without residual deficits; Z86.16 Personal history of COVID-19; W06.XXXA Fall from bed, initial encounter; Y93.89 Activity, other specified; Y92.89 Other specified places as the place of occurrence of the external cause; Y99.8 Other external cause status
CPT/HCPCS: 70450-TC; 72131-TC

== ENCOUNTER 2024-07-27 05:32 | Inpatient (IN) | payer MEDICARE, OTHER ==
[~2024-07-27] VITALS: Ht 177.8 cm; Wt 64.0 kg
[2024-07-27] VITALS (58 sets, daily range): BP systolic 87–168; BP diastolic 58–90; TEMP 97.8–98.5; O2SAT 91–99
[~2024-07-27 05:32] MED LIST changes: +TRIA15CR4 TP
[2024-07-27] MEDS: IV NS 0.9% 1,000 ML BAG IV ONE ×2 (06:00→07:30)
[2024-07-27 06:07] LABS: BASOPHILS # (AUTO) 0.1 K/uL (0.0-0.2); BASOPHILS % (AUTO) 0.2 % (0.0-2.0); EOSINOPHILS % (AUTO) 0.1 % (0.0-6.0); HEMATOCRIT 44 % (39-51); HEMOGLOBIN 14.2 g/dL (13.5-17.5); LYMPHOCYTES # (AUTO) 2.1 K/uL (0.8-4.8); LYMPHOCYTES % (AUTO) 6.4 % (20.0-44.0); MEAN CORPUSCULAR HEMOGLOBIN 31 PG (26.0-33.0); MEAN CORPUSCULAR HGB CONC 33 g/dl (31.0-36.0); MEAN CORPUSCULAR VOLUME 95 fL (80-96); MONOCYTES # (AUTO) 2.2 K/uL (0.1-1.30); MONOCYTES % (AUTO) 6.7 % (2.0-12.0); NEUTROPHILS # (AUTO) 27.9 K/uL (1.8-8.9); NEUTROPHILS % (AUTO) 86.6 % (43.0-81.0); PLATELET COUNT (AUTO) 138 K/uL (150-450); RED BLOOD CELL COUNT(AUTO) 4.57 MIL/uL (4.5-6.0); RED CELL DISTRIBUTION WIDTH 13.5 % (11.5-15.0)
[2024-07-27] MEDS ORDERED: VANCOMYCIN 1 GM /D5W 250 ML PB IV ONE (06:09)
[2024-07-27] MEDS ORDERED: PIPERACI/TAZO 3.375GM/D5W 50ML PB IV ONE (06:10)
[2024-07-27] MEDS: PIPERACILLIN /TAZOBACTAM 3.375 G in IV D5W 50 ML IV ONE (06:16)
[2024-07-27 06:24] LABS: WHITE BLOOD COUNT (AUTO) 32.2 K/uL (4.3-11.0)
[2024-07-27 06:25] LABS: ANISOCYTOSIS 1+; BASOPHILS % (MANUAL) 0 % (0.0-2.0); EOSINOPHILS % (MANUAL) 0 % (0-4); LYMPHOCYTES % (MANUAL) 6 % (16-48); MONOCYTES % (MANUAL) 5 % (0-11.0); NEUTROPHILS % (MANUAL) 89 (42-76); PLATELET ESTIMATE DECREASED
[2024-07-27 06:30] LABS: ABG BASE EXCESS -7.5 mmol/L (-2.0-3.0); ABG OXYGEN SATURATION 83.3 % (94.0-98.0); ABG PCO2 48.7 mmHg (35.0-48.0); ABG PH 7.234 (7.350-7.450); ABG TOTAL HEMOGLOBIN 13.9 G/dL (13.5-17.5); COHb 0.3 % (0.5-1.5); MetHb 0.5 % (0.0-1.5); O2Hb 82.6 % (94.0-97.0); SITE, ABG RIGHT RADIAL
[2024-07-27 06:31] LABS: INR 1.08 (0.91-1.10); PARTIAL THROMBOPLASTIN TIME 30.2 SEC (24.3-34.3); PROTHROMBIN TIME 11.4 SECS (9.2-11.1)
[2024-07-27 06:32] LABS: ALANINE AMINOTRANSFERASE 25 U/L (12-78); ALBUMIN 3.6 g/dL (3.4-5.0); ALKALINE PHOSPHATASE 84 U/L (46-116); ASPARTATE AMINOTRANSFERASE 40 U/L (15-37); BILIRUBIN,TOTAL 0.7 mg/dL (0.2-1.0); CALCIUM, SERUM 9.6 mg/dL (8.5-10.1); CARBON DIOXIDE 21 mmol/L (21-32); CHLORIDE 104 mmol/L (98-107); CREATININE 2.4 mg/dL (0.6-1.3); GLUCOSE 104 mg/dL (74-106); POTASSIUM 4.5 mmol/L (3.5-5.1); SODIUM SERUM 136 mmol/L (136-145); TOTAL PROTEIN, SERUM 8.6 g/dL (6.4-8.2); UREA NITROGEN, BLOOD 26 mg/dL (7-18)
[2024-07-27 06:32] LABS: APPEARANCE,URINE TURBID (CLEAR); BILIRUBIN,URINE NEGATIVE (NEGATIVE); BLOOD, URINE 3+ Ery/uL (NEGATIVE); COLOR,URINE RED (YELLOW); KETONES,URINE TRACE mg/dL (NEGATIVE); LEUKOCYTE ESTERASE ,URINE 1+ (NEGATIVE); NITRITE, URINE POSITIVE (NEGATIVE); PROTEIN,URINE 3+ mg/dl (NEGATIVE); UGLUCOSE TRACE mg/dL (NEGATIVE)
[2024-07-27 06:33] LABS: ADD URINE CULTURE YES; BACTERIA,URINE Moderate /HPF (None Seen); RBC,URINE TOO NUMEROUS TO COUN /HPF (0-2); SQUAMOUS EPITHELIAL CELL,UR Rare /HPF (None Seen)
[2024-07-27] MEDS: VANCOMYCIN 1 GM in IV D5W 250 ML IV ONE (06:39)
[2024-07-27 06:48] LABS: LACTIC ACID 5.3 mmol/L (0.4-2.0)
[2024-07-27 06:50] LABS: BILIRUBIN,DIRECT 0.1 mg/dL (0.0-0.2)
[2024-07-27] MEDS ORDERED: ONDANSETRON HCL/PF 4 MG/2 ML VIAL ONE (06:51)
[2024-07-27] MEDS: ONDANSETRON HCL/PF 4 MG/2 ML VIAL IV ONE (06:52)
[2024-07-27] MEDS ORDERED: methylPREDNISolone SOD SUCC 125 MG/2ML VIAL ONE (07:17)
[2024-07-27] MEDS: methylPREDNISolone SOD SUCC 125 MG/2ML VIAL IV ONE (07:26)
[2024-07-27] MEDS ORDERED: DEXTROSE 50%-WATER 50 ML DISP.SYRIN IV PRN (07:30)
[2024-07-27] MEDS ORDERED: ONDANSETRON HCL/PF 4 MG/2 ML VIAL IVP PRN (07:30)
[2024-07-27] MEDS ORDERED: Z GUARD REMEDY 4 OZ OINT TP PRN (07:30)
[2024-07-27] MEDS ORDERED: ALBUTEROL FS 2.5 MG/3 ML VIAL.NEB NEB PRN (07:30)
[2024-07-27] MEDS ORDERED: ACETAMINOPHEN 325 MG TABLET PO PRN (07:30)
[2024-07-27] MEDS ORDERED: ACETAMINOPHEN 650 MG/SUPP.RECT RC PRN (07:30)
[2024-07-27] MEDS: VANCOMYCIN 500 MG in IV D5W 100 ML IV SCH (08:00)
[2024-07-27] MEDS ORDERED: ALBUTEROL FS 2.5 MG/3 ML VIAL.NEB ONE (08:02)
[2024-07-27] MEDS ORDERED: IPRATROPIUM NEB FS 0.5 MG/2.5 ML AMPUL.NEB ONE (08:02)
[2024-07-27 08:04] LABS: ABG BASE EXCESS -5.5 mmol/L (-2.0-3.0); ABG OXYGEN SATURATION 94.1 % (94.0-98.0); ABG PCO2 38.3 mmHg (35.0-48.0); ABG PH 7.332 (7.350-7.450); ABG PO2 72.5 mmHg (83.0-108.0); ABG TOTAL HEMOGLOBIN 13.7 G/dL (13.5-17.5); COHb 0.3 % (0.5-1.5); MetHb 0.3 % (0.0-1.5); O2Hb 93.5 % (94.0-97.0); SITE, ABG RIGHT RADIAL
[2024-07-27] MEDS: ALBUTEROL FS 2.5 MG/3 ML VIAL.NEB CONTNEB ONE (08:06)
[2024-07-27] MEDS: IPRATROPIUM NEB FS 0.5 MG/2.5 ML AMPUL.NEB NEB ONE (08:06)
[2024-07-27] MEDS ORDERED: NOREPINEPHRINE 8MG/250ML RTU 250 ML IV ONE (08:24)
[2024-07-27] MEDS: IPRATROPIUM NEB FS 0.5 MG/2.5 ML AMPUL.NEB NEB SCH (08:30)
[2024-07-27] MEDS ORDERED: FERR325T24 PO (08:30)
[2024-07-27] MEDS: ALBUTEROL FS 2.5 MG/3 ML VIAL.NEB NEB SCH (08:30)
[2024-07-27] MEDS ORDERED: FOLI0.4T6 PO (08:30)
[2024-07-27] MEDS: CEFEPIME 2 GM in IV D5W 100 ML IV SCH (09:33)
[2024-07-27] MEDS: NOREPINEPHRINE 8 MG in IV D5W 242 ML IV PRN (09:35)
[2024-07-27] MEDS ORDERED: NOREPINEPHRINE 8 MG in IV D5W 242 ML IV PRN (09:36)
[2024-07-27] MEDS: IV D5 LR 1,000 ML IV PRN (09:59)
[2024-07-27] MEDS: PANTOPRAZOLE 40 MG VIAL IV SCH (10:18)
[2024-07-27] MEDS: BLOOD SUGAR DIAGNOSTIC 1 EACH STRIP IN SCH (12:24)
[2024-07-27] MEDS: methylPREDNISolone SOD SUCC 40 MG/ML VIAL IV SCH (12:26)
[2024-07-27 13:38] LABS: ALBUMIN 3.1 g/dL (3.4-5.0); BILIRUBIN,TOTAL 0.7 mg/dL (0.2-1.0); CALCIUM, SERUM 8.6 mg/dL (8.5-10.1); CREATININE 1.9 mg/dL (0.6-1.3); MAGNESIUM 1.9 mg/dL (1.8-2.4); POTASSIUM 4.2 mmol/L (3.5-5.1); TOTAL PROTEIN, SERUM 7.6 g/dL (6.4-8.2)
[2024-07-27] MEDS: INSULIN REGULAR, HUMAN 100 UNIT/ML 3 ML VIAL SQ PRN (23:42)
[2024-07-28] VITALS (41 sets, daily range): BP systolic 100–130; BP diastolic 63–90; TEMP 97.7–98.9; O2SAT 91–99
[2024-07-28 05:54] LABS: HEMATOCRIT 32 % (39-51); HEMOGLOBIN 10.7 g/dL (13.5-17.5); MEAN CORPUSCULAR HEMOGLOBIN 32 PG (26.0-33.0); MEAN CORPUSCULAR HGB CONC 34 g/dl (31.0-36.0); MEAN CORPUSCULAR VOLUME 95 fL (80-96); PLATELET COUNT (AUTO) 102 K/uL (150-450); RED BLOOD CELL COUNT(AUTO) 3.31 MIL/uL (4.5-6.0); RED CELL DISTRIBUTION WIDTH 13.6 % (11.5-15.0); WHITE BLOOD COUNT (AUTO) 15.5 K/uL (4.3-11.0)
[2024-07-28 05:55] LABS: BASOPHILS % (AUTO) 0.1 % (0.0-2.0); LYMPHOCYTES # (AUTO) 1.6 K/uL (0.8-4.8); LYMPHOCYTES % (AUTO) 10.1 % (20.0-44.0); MONOCYTES # (AUTO) 0.6 K/uL (0.1-1.30); MONOCYTES % (AUTO) 3.9 % (2.0-12.0); NEUTROPHILS # (AUTO) 13.3 K/uL (1.8-8.9); NEUTROPHILS % (AUTO) 85.9 % (43.0-81.0)
[2024-07-28 08:25] LABS: ABG BASE EXCESS -1.9 mmol/L (-2.0-3.0); ABG OXYGEN SATURATION 97.8 % (94.0-98.0); ABG PCO2 37.9 mmHg (35.0-48.0); ABG PH 7.394 (7.350-7.450); ABG PO2 108.5 mmHg (83.0-108.0); ABG TOTAL HEMOGLOBIN 11.5 G/dL (13.5-17.5); COHb 0.3 % (0.5-1.5); MetHb 0.1 % (0.0-1.5); O2Hb 97.4 % (94.0-97.0); SITE, ABG RIGHT RADIAL
[2024-07-28 12:39] LABS: CALCIUM, SERUM 8.5 mg/dL (8.5-10.1); CREATININE 1.4 mg/dL (0.6-1.3); PHOSPHORUS 2.2 mg/dL (2.5-4.9)
[2024-07-28] MEDS: ENOXAPARIN SODIUM 60 MG/0.6 ML DISP.SYRIN SQ SCH (12:54)
[2024-07-28] MEDS: VANCOMYCIN HCL 1.25 GM in IV D5W 250 ML IV SCH (15:48)
[2024-07-28] MEDS: Sodium Phosphate 15 MMOL in IV NS 0.9% 245 ML IV ONE (16:02)
[2024-07-28] MEDS ORDERED: VANCOMYCIN HCL 1.25 GM in IV D5W 250 ML IV SCH (20:00)
[2024-07-29] VITALS (25 sets, daily range): BP systolic 109–151; BP diastolic 67–89; TEMP 97.7–98.8; O2SAT 85–98
[2024-07-29 04:59] LABS: CALCIUM, SERUM 8.2 mg/dL (8.5-10.1); CREATININE 1.1 mg/dL (0.6-1.3); POTASSIUM 3.7 mmol/L (3.5-5.1)
[2024-07-29 05:12] LABS: BASOPHILS % (AUTO) 0.1 % (0.0-2.0); HEMATOCRIT 32 % (39-51); HEMOGLOBIN 10.7 g/dL (13.5-17.5); LYMPHOCYTES # (AUTO) 1.1 K/uL (0.8-4.8); LYMPHOCYTES % (AUTO) 8.3 % (20.0-44.0); MEAN CORPUSCULAR HEMOGLOBIN 32 PG (26.0-33.0); MEAN CORPUSCULAR HGB CONC 34 g/dl (31.0-36.0); MEAN CORPUSCULAR VOLUME 94 fL (80-96); MONOCYTES # (AUTO) 0.6 K/uL (0.1-1.30); MONOCYTES % (AUTO) 4.2 % (2.0-12.0); NEUTROPHILS % (AUTO) 87.4 % (43.0-81.0); PLATELET COUNT (AUTO) 107 K/uL (150-450); RED BLOOD CELL COUNT(AUTO) 3.37 MIL/uL (4.5-6.0); RED CELL DISTRIBUTION WIDTH 13.8 % (11.5-15.0); WHITE BLOOD COUNT (AUTO) 13.7 K/uL (4.3-11.0)
[2024-07-29 05:18] LABS: MAGNESIUM 2.1 mg/dL (1.8-2.4); PHOSPHORUS 2.8 mg/dL (2.5-4.9)
[2024-07-29] MEDS: IV 1/2NS 1000 ML 1,000 ML IV SCH (08:58)
[2024-07-29] MEDS: MEROPENEM 1 G in IV NS 0.9% 100 ML IV SCH (17:55)
[2024-07-30] VITALS (14 sets, daily range): BP systolic 119–146; BP diastolic 70–94; TEMP 97.7–98.4; O2SAT 93–99
[2024-07-30 07:24] LABS: HEMATOCRIT 36 % (39-51); LYMPHOCYTES # (AUTO) 1.2 K/uL (0.8-4.8); LYMPHOCYTES % (AUTO) 11.5 % (20.0-44.0); MEAN CORPUSCULAR HEMOGLOBIN 31 PG (26.0-33.0); MEAN CORPUSCULAR HGB CONC 33 g/dl (31.0-36.0); MEAN CORPUSCULAR VOLUME 94 fL (80-96); MONOCYTES # (AUTO) 0.3 K/uL (0.1-1.30); MONOCYTES % (AUTO) 2.6 % (2.0-12.0); NEUTROPHILS # (AUTO) 9.1 K/uL (1.8-8.9); NEUTROPHILS % (AUTO) 85.9 % (43.0-81.0); PLATELET COUNT (AUTO) 110 K/uL (150-450); RED BLOOD CELL COUNT(AUTO) 3.83 MIL/uL (4.5-6.0); RED CELL DISTRIBUTION WIDTH 12.9 % (11.5-15.0); WHITE BLOOD COUNT (AUTO) 10.6 K/uL (4.3-11.0)
[2024-07-30 08:10] LABS: CALCIUM, SERUM 8.9 mg/dL (8.5-10.1); CREATININE 1.2 mg/dL (0.6-1.3); POTASSIUM 4.4 mmol/L (3.5-5.1)
[2024-07-30 14:09] LABS: MAGNESIUM 2.3 mg/dL (1.8-2.4); PHOSPHORUS 3.3 mg/dL (2.5-4.9)
[2024-07-31] VITALS (10 sets, daily range): BP systolic 136–168; BP diastolic 84–99; TEMP 97.5–98.2; O2SAT 93–99
[2024-07-31 07:43] LABS: HEMATOCRIT 37 % (39-51); HEMOGLOBIN 12.3 g/dL (13.5-17.5); LYMPHOCYTES # (AUTO) 1.4 K/uL (0.8-4.8); LYMPHOCYTES % (AUTO) 16.1 % (20.0-44.0); MEAN CORPUSCULAR HEMOGLOBIN 31 PG (26.0-33.0); MEAN CORPUSCULAR HGB CONC 33 g/dl (31.0-36.0); MEAN CORPUSCULAR VOLUME 93 fL (80-96); MONOCYTES # (AUTO) 0.4 K/uL (0.1-1.30); MONOCYTES % (AUTO) 4.7 % (2.0-12.0); NEUTROPHILS # (AUTO) 6.8 K/uL (1.8-8.9); NEUTROPHILS % (AUTO) 79.2 % (43.0-81.0); PLATELET COUNT (AUTO) 118 K/uL (150-450); RED BLOOD CELL COUNT(AUTO) 3.97 MIL/uL (4.5-6.0); RED CELL DISTRIBUTION WIDTH 13.2 % (11.5-15.0); WHITE BLOOD COUNT (AUTO) 8.6 K/uL (4.3-11.0)
[2024-07-31 07:48] LABS: CALCIUM, SERUM 8.5 mg/dL (8.5-10.1); CREATININE 0.9 mg/dL (0.6-1.3); POTASSIUM 3.6 mmol/L (3.5-5.1)
[2024-07-31 08:05] LABS: MAGNESIUM 2.4 mg/dL (1.8-2.4); PHOSPHORUS 2.9 mg/dL (2.5-4.9)
[2024-07-31] MEDS: PANTOPRAZOLE 40 MG/PACK PACK PO SCH (09:23)
[2024-07-31] MEDS: IV 1/2NS 1000 ML 1,000 ML IV PRN (11:00)
[2024-07-31] MEDS ORDERED: IPRATROPIUM NEB FS 0.5 MG/2.5 ML AMPUL.NEB NEB PRN (12:00)
[2024-07-31] MEDS ORDERED: ALBUTEROL FS 2.5 MG/3 ML VIAL.NEB NEB PRN (12:00)
[2024-07-31] MEDS: hydrALAZINE HCL IV 20 MG VIAL IV PRN (17:33)
[2024-08-01] VITALS: BP 147/92; TEMP 98.2; O2SAT 97
[2024-08-01 04:00] VITALS: BP 157/95; TEMP 97.9; O2SAT 97
[2024-08-01 07:47] LABS: EOSINOPHILS % (AUTO) 0.3 % (0.0-6.0); HEMATOCRIT 39 % (39-51); HEMOGLOBIN 13.4 g/dL (13.5-17.5); LYMPHOCYTES # (AUTO) 2.4 K/uL (0.8-4.8); LYMPHOCYTES % (AUTO) 29.6 % (20.0-44.0); MEAN CORPUSCULAR HEMOGLOBIN 32 PG (26.0-33.0); MEAN CORPUSCULAR HGB CONC 34 g/dl (31.0-36.0); MEAN CORPUSCULAR VOLUME 93 fL (80-96); MONOCYTES # (AUTO) 0.9 K/uL (0.1-1.30); MONOCYTES % (AUTO) 10.5 % (2.0-12.0); NEUTROPHILS # (AUTO) 4.9 K/uL (1.8-8.9); NEUTROPHILS % (AUTO) 59.6 % (43.0-81.0); PLATELET COUNT (AUTO) 124 K/uL (150-450); RED BLOOD CELL COUNT(AUTO) 4.22 MIL/uL (4.5-6.0); RED CELL DISTRIBUTION WIDTH 13.2 % (11.5-15.0); WHITE BLOOD COUNT (AUTO) 8.3 K/uL (4.3-11.0)
[2024-08-01 08:00] VITALS: BP 159/82; TEMP 97.9; O2SAT 96
[2024-08-01 08:12] LABS: CALCIUM, SERUM 8.4 mg/dL (8.5-10.1); CREATININE 0.8 mg/dL (0.6-1.3); MAGNESIUM 2.5 mg/dL (1.8-2.4); PHOSPHORUS 2.2 mg/dL (2.5-4.9); POTASSIUM 2.9 mmol/L (3.5-5.1)
[2024-08-01] MEDS ORDERED: predniSONE 20 MG TABLET PO SCH (09:00)
[2024-08-01] MEDS ORDERED: methylPREDNISolone SOD SUCC 40 MG/ML VIAL IV SCH (09:00)
[2024-08-01] MEDS: POTASSIUM PHOSPHATE MM 7.5 MMOL in IV NS 0.9% 100 ML IV SCH (10:11)
[2024-08-01] MEDS: POTASSIUM CL. PREMIX PERIPHER. 50 ML IV SCH (10:11)
[2024-08-01] MEDS: PANTOPRAZOLE 40 MG VIAL IV SCH (11:20)
[2024-08-01 12:00] VITALS: BP 166/94; TEMP 98.1; O2SAT 96
[2024-08-01] MEDS: IV D5/0.45 NACL 1,000 ML IV PRN (12:58)
[2024-08-01 16:00] VITALS: BP 164/96; TEMP 98.1; O2SAT 96
[2024-08-01] MEDS: IV NS 0.9% 250 ML IV PRN (16:37)
[2024-08-01] MEDS: hydrALAZINE HCL IV 20 MG VIAL IV PRN (18:40)
[2024-08-01 20:00] VITALS: BP 123/71; TEMP 98.4; O2SAT 94
[2024-08-02] VITALS: BP 138/89; TEMP 98.4; O2SAT 96
[2024-08-02 04:00] VITALS: BP 167/96; TEMP 97.9; O2SAT 96
[2024-08-02 06:50] LABS: BASOPHILS % (AUTO) 0.1 % (0.0-2.0); EOSINOPHILS # (AUTO) 0.5 K/uL (0.0-0.7); EOSINOPHILS % (AUTO) 7.2 % (0.0-6.0); HEMATOCRIT 42 % (39-51); HEMOGLOBIN 14.2 g/dL (13.5-17.5); LYMPHOCYTES # (AUTO) 2.1 K/uL (0.8-4.8); LYMPHOCYTES % (AUTO) 29.6 % (20.0-44.0); MEAN CORPUSCULAR HEMOGLOBIN 31 PG (26.0-33.0); MEAN CORPUSCULAR HGB CONC 34 g/dl (31.0-36.0); MEAN CORPUSCULAR VOLUME 92 fL (80-96); MONOCYTES # (AUTO) 0.8 K/uL (0.1-1.30); MONOCYTES % (AUTO) 11.4 % (2.0-12.0); NEUTROPHILS # (AUTO) 3.6 K/uL (1.8-8.9); NEUTROPHILS % (AUTO) 51.7 % (43.0-81.0); PLATELET COUNT (AUTO) 147 K/uL (150-450); RED BLOOD CELL COUNT(AUTO) 4.56 MIL/uL (4.5-6.0); RED CELL DISTRIBUTION WIDTH 13.1 % (11.5-15.0)
[2024-08-02 08:00] VITALS: BP 152/83; TEMP 98.6; O2SAT 95
[2024-08-02 08:23] LABS: CALCIUM, SERUM 8.3 mg/dL (8.5-10.1); CREATININE 0.8 mg/dL (0.6-1.3); MAGNESIUM 2.5 mg/dL (1.8-2.4); PHOSPHORUS 2.5 mg/dL (2.5-4.9); POTASSIUM 3.2 mmol/L (3.5-5.1)
[2024-08-02] MEDS: POTASSIUM CL. PREMIX PERIPHER. 50 ML IV SCH (09:39)
[2024-08-02] MEDS ORDERED: BARIUM SULFATE 98% 135 ML SUSP.RECON PO ONE (12:49)
[2024-08-02 16:00] VITALS: BP 172/92; TEMP 98.2; O2SAT 95
[2024-08-02 18:00] VITALS: BP 150/82; TEMP 98.1; O2SAT 95
[2024-08-02 20:00] VITALS: BP 127/83; TEMP 98.8; O2SAT 95
[2024-08-02 20:58] LABS: D-DIMER 0.53 mg/L(FEU (0.17-0.50); INR 1.08 (0.91-1.10); PARTIAL THROMBOPLASTIN TIME 30.3 SEC (24.3-34.3); PROTHROMBIN TIME 11.4 SECS (9.2-11.1)
[2024-08-03 04:00] VITALS: BP 154/93; TEMP 97.7; O2SAT 98
[2024-08-03 07:54] LABS: EOSINOPHILS # (AUTO) 0.7 K/uL (0.0-0.7); EOSINOPHILS % (AUTO) 11.3 % (0.0-6.0); HEMATOCRIT 42 % (39-51); LYMPHOCYTES # (AUTO) 1.8 K/uL (0.8-4.8); LYMPHOCYTES % (AUTO) 27.3 % (20.0-44.0); MEAN CORPUSCULAR HEMOGLOBIN 31 PG (26.0-33.0); MEAN CORPUSCULAR HGB CONC 33 g/dl (31.0-36.0); MEAN CORPUSCULAR VOLUME 94 fL (80-96); MONOCYTES # (AUTO) 0.7 K/uL (0.1-1.30); MONOCYTES % (AUTO) 10.6 % (2.0-12.0); NEUTROPHILS # (AUTO) 3.3 K/uL (1.8-8.9); NEUTROPHILS % (AUTO) 50.8 % (43.0-81.0); PLATELET COUNT (AUTO) 148 K/uL (150-450); RED BLOOD CELL COUNT(AUTO) 4.47 MIL/uL (4.5-6.0); RED CELL DISTRIBUTION WIDTH 13.1 % (11.5-15.0); WHITE BLOOD COUNT (AUTO) 6.6 K/uL (4.3-11.0)
[2024-08-03 08:00] VITALS: BP 140/90; TEMP 98; O2SAT 98
[2024-08-03 08:02] LABS: D-DIMER 0.45 mg/L(FEU (0.17-0.50); INR 1.09 (0.91-1.10); PARTIAL THROMBOPLASTIN TIME 32.5 SEC (24.3-34.3); PROTHROMBIN TIME 11.5 SECS (9.2-11.1)
[2024-08-03 08:40] LABS: ALBUMIN 2.7 g/dL (3.4-5.0); BILIRUBIN,TOTAL 0.7 mg/dL (0.2-1.0); CREATININE 0.8 mg/dL (0.6-1.3); MAGNESIUM 2.4 mg/dL (1.8-2.4); PHOSPHORUS 2.5 mg/dL (2.5-4.9); POTASSIUM 3.4 mmol/L (3.5-5.1); TOTAL PROTEIN, SERUM 6.6 g/dL (6.4-8.2)
[2024-08-03] MEDS: POTASSIUM CHLORIDE 20 MEQ POWDER PACKET PO ONE (09:30)
[2024-08-03 12:00] VITALS: BP 140/90; TEMP 98; O2SAT 98
[2024-08-04 08:12] LABS: FOLIC ACID 10.7 ng/mL (>3.0); IMMUNOGLOBULIN A, SERUM 491 mg/dL (61-437); IMMUNOGLOBULIN G, SERUM 1299 mg/dL (603-1613); IMMUNOGLOBULIN M, SERUM 55 mg/dL (15-143)
[2024-08-04 08:12] LABS: HOMOCYSTEINE, PLASMA 11.8 umol/L (0.0-21.3)
[2024-08-04 15:07] LABS: FREE KAPPA LT CHAINS SERUM 22.9 mg/L (3.3-19.4); FREE LAMBDA LT CHAIN SERUM 17.1 mg/L (5.7-26.3); KAPPA/LAMBDA RATIO SERUM 1.34 (0.26-1.65)
[2024-08-05 17:07] LABS: *ANTITHROMBIN III AG 68 % (72-124); *DILUTE PROTHROMBIN TIME (dPT) 38.7 sec (0.0-47.6); *THROMBIN TIME 22.5 sec (0.0-23.0); *dPT CONFIRM RATIO 0.93 Ratio (0.00-1.34); *dRVVT 34.5 sec (0.0-47.0); ANTITHROMBIN III ACTIVITY 81 % (75-135); PROTEIN C ACTIVITY 96 % (73-180)
== END 2024-08-03 14:55 | DRG 871 ==
LOC: ER 05:35 → ICU 08:36 → TELE1 07-29 18:34 → TELE-TD 07-29 18:44 → TELE1 07-30 15:47 → MEDSG1 08-02 09:31
PROVIDERS: ADMIT Nurse Practitioner Acute Care
PROC: 06HY33Z Insertion of Infusion Device into Lower Vein, Percutaneous Approach (ICD-10-PCS; principal; 2024-07-27)
DX: A41.51 Sepsis due to Escherichia coli [E. coli] (principal); G92.8 Other toxic encephalopathy; J69.0 Pneumonitis due to inhalation of food and vomit; J96.21 Acute and chronic respiratory failure with hypoxia; J96.22 Acute and chronic respiratory failure with hypercapnia; R65.21 Severe sepsis with septic shock; N17.0 Acute kidney failure with tubular necrosis; D68.59 Other primary thrombophilia; I69.354 Hemiplegia and hemiparesis following cerebral infarction affecting left non-dominant side; Z16.12 Extended spectrum beta lactamase (ESBL) resistance; E87.4 Mixed disorder of acid-base balance; E87.0 Hyperosmolality and hypernatremia; N39.0 Urinary tract infection, site not specified; E87.20 Acidosis, unspecified; E44.0 Moderate protein-calorie malnutrition; I82.412 Acute embolism and thrombosis of left femoral vein; I82.432 Acute embolism and thrombosis of left popliteal vein; I13.0 Hypertensive heart and chronic kidney disease with heart failure and stage 1 through stage 4 chronic kidney disease, or unspecified chronic kidney disease; D69.6 Thrombocytopenia, unspecified; E11.51 Type 2 diabetes mellitus with diabetic peripheral angiopathy without gangrene; E78.5 Hyperlipidemia, unspecified; E86.0 Dehydration; I25.10 Atherosclerotic heart disease of native coronary artery without angina pectoris; I25.5 Ischemic cardiomyopathy; J44.9 Chronic obstructive pulmonary disease, unspecified; M19.90 Unspecified osteoarthritis, unspecified site; N18.9 Chronic kidney disease, unspecified; Z86.711 Personal history of pulmonary embolism; Z79.01 Long term (current) use of anticoagulants; Z86.718 Personal history of other venous thrombosis and embolism; E87.6 Hypokalemia; R13.10 Dysphagia, unspecified; R31.9 Hematuria, unspecified; Z74.09 Other reduced mobility; E83.9 Disorder of mineral metabolism, unspecified; E11.22 Type 2 diabetes mellitus with diabetic chronic kidney disease; I50.9 Heart failure, unspecified; Z86.19 Personal history of other infectious and parasitic diseases
CPT/HCPCS: 36415; 36600; 71045-TC; 74230-TC; 76770-TC; 80048-TC; 80053-TC; 80076-TC; 81001; 81241; 82607-TC; 82784; 82803-TC; 82962-TC; 83090; 83605-TC; 83735-TC; 83880; 84100-TC; 84155; 84165; 84443-TC; 84484-TC; 85025-TC; 85300; 85301; 85303; 85396; 85613; 85670; 85705; 85730-TC; 85732; 86147; 86334; 87040-TC; 87081-TC; 87086-TC; 87186-TC; 92526; 92611-TC; 93970-TC; 94761-TC; 94799-TC; 97110-TC; 97530-TC; A4223; A9563; G0378; J0360; J0692; J1650; J1815; J2185; J2405; J2470; J2543; J2919; J3370; J3480; J3490; J7030; J7050; J7060; J7070

== ENCOUNTER 2024-12-07 00:18 | Inpatient (IN) | payer MEDICARE, OTHER ==
[~2024-12-07] VITALS: Ht 177.8 cm; Wt 69.9 kg
[~2024-12-07 00:18] MED LIST changes: -BETA45CR3 TP; +FERR325T24 PO; +FOLI0.4T6 PO; +MOLNUPIRAVIR PO; -PIPE3.379 IV; -VALA500T PO; -ZINC220T4 PO
[2024-12-07] MEDS ORDERED: dexaMETHasone SOD PHOSPHATE 1 ML ONE (00:40)
[2024-12-07] MEDS: IV NS 0.9% 1,000 ML BAG IV ONE (00:41)
[2024-12-07] MEDS: dexaMETHasone SOD PHOSPHATE 10 MG/ML VIAL IV ONE (00:41)
[2024-12-07 00:44] LABS: PLATELET COUNT (AUTO) 137 K/uL (150-450); RED BLOOD CELL COUNT(AUTO) 4.65 MIL/uL (4.5-6.0); RED CELL DISTRIBUTION WIDTH 14.1 % (11.5-15.0); WHITE BLOOD COUNT (AUTO) 12.0 K/uL (4.3-11.0)
[2024-12-07 00:56] LABS: CALCIUM, SERUM 9.2 mg/dL (8.5-10.1); CREATININE 1.5 mg/dL (0.6-1.3); SODIUM SERUM 143 mmol/L (136-145); UREA NITROGEN, BLOOD 21 mg/dL (7-18)
[2024-12-07 01:08] LABS: ASPARTATE AMINOTRANSFERASE 16 U/L (15-37); NT-PRO BNP 1630 pg/mL (0-125); TOTAL PROTEIN, SERUM 8.7 g/dL (6.4-8.2)
[2024-12-07 01:17] LABS: ABG BASE EXCESS -3.2 mmol/L (-2.0-3.0); ABG OXYGEN SATURATION 97.6 % (94.0-98.0); ABG PCO2 43.5 mmHg (35.0-48.0); ABG PH 7.334 (7.350-7.450); ABG PO2 110.1 mmHg (83.0-108.0); ABG TOTAL HEMOGLOBIN 13.5 G/dL (13.5-17.5); FLOW, BLOOD GAS 5.00 L/min (0.00-30.00); FRACTIONATED INSPIRED OXYGEN 40.0 %; SITE, ABG RIGHT RADIAL
[2024-12-07] MEDS ORDERED: MAG HYDROX/AL HYDROX/SIMETH 30 ML UDC PO PRN (02:30)
[2024-12-07] MEDS ORDERED: DEXTROSE 50%-WATER 50 ML DISP.SYRIN IV PRN (02:30)
[2024-12-07] MEDS ORDERED: ACETAMINOPHEN 325 MG TABLET PO PRN (02:30)
[2024-12-07] MEDS ORDERED: MAGNESIUM HYDROXIDE 30 ML UDC PO PRN (02:30)
[2024-12-07] MEDS ORDERED: ONDANSETRON HCL/PF 4 MG/2 ML VIAL IVP PRN (02:30)
[2024-12-07] MEDS ORDERED: DOSING PER PHARMACY-VANCOMYCIN IV XX PRN (02:30)
[2024-12-07] MEDS ORDERED: ALBUTEROL FS 2.5 MG/3 ML VIAL.NEB NEB PRN (02:30)
[2024-12-07] MEDS ORDERED: Z GUARD REMEDY 4 OZ OINT TP PRN (02:30)
[2024-12-07] MEDS ORDERED: IPRATROPIUM NEB FS 0.5 MG/2.5 ML AMPUL.NEB NEB PRN (02:30)
[2024-12-07] MEDS: VANCOMYCIN 1 GM /D5W 250 ML PB IV ONE ×2 (03:27→04:50)
[2024-12-07] MEDS: VANCOMYCIN 1 GM in IV D5W 250ml IV SCH (03:31)
[2024-12-07 04:00] VITALS: BP 137/85; TEMP 98.4
[2024-12-07] MEDS ORDERED: CEFEPIME 1 GM VIAL ONE (05:32)
[2024-12-07] MEDS: CEFEPIME 2 GM in IV D5W 100 ML IV SCH ×2 (06:44→18:05)
[2024-12-07 07:37] LABS: INR 1.04 (0.91-1.10)
[2024-12-07 08:00] VITALS: BP 125/75; TEMP 97.9
[2024-12-07] MEDS ORDERED: VANCOMYCIN 500 MG in IV D5W 100 ML IV ONE (08:00)
[2024-12-07] MEDS ORDERED: DABI150C PO (08:06)
[2024-12-07] MEDS ORDERED: ALBU2.5V11 IH (08:06)
[2024-12-07] MEDS ORDERED: PARO10TA4 PO (08:06)
[2024-12-07] MEDS ORDERED: IPRA0.2S49 IH (08:06)
[2024-12-07] MEDS ORDERED: INSU100V3 SQ (08:06)
[2024-12-07] MEDS ORDERED: PANT40SU2 PO (08:06)
[2024-12-07 08:20] LABS: PHOSPHORUS 1.8 mg/dL (2.5-4.9)
[2024-12-07] MEDS: DOCUSATE SODIUM 100 MG CAPSULE PO SCH (08:23)
[2024-12-07] MEDS: ASCORBIC ACID 500 MG TABLET PO SCH (08:23)
[2024-12-07] MEDS: MULTIVIT W/MINERALS 1 TAB TABLET PO SCH (08:23)
[2024-12-07] MEDS: CHOLECALCIFEROL 1,000 UNIT TABLET (VIT D3) PO SCH (08:23)
[2024-12-07] MEDS: MINOXIDIL (2.5MG) 2.5 MG TABLET PO SCH (08:23)
[2024-12-07] MEDS: PANTOPRAZOLE 40 MG TABLET.DR PO SCH (08:23)
[2024-12-07] MEDS: AMLODIPINE BESYLATE 5 MG TABLET PO SCH (08:23)
[2024-12-07] MEDS: PAROXETINE HCL 10 MG TABLET PO SCH (08:29)
[2024-12-07] MEDS: CARVEDILOL 12.5 MG TABLET PO SCH (08:29)
[2024-12-07] MEDS: BLOOD SUGAR DIAGNOSTIC 1 EACH STRIP IN SCH (08:45)
[2024-12-07] MEDS: FERROUS SULFATE (325 MG) 325 MG/TAB TABLET PO SCH (09:00)
[2024-12-07] MEDS ORDERED: DABIGATRAN ETEXILATE MESYLATE 75 MG CAPSULE PO SCH (09:00)
[2024-12-07 09:17] LABS: ASPARTATE AMINOTRANSFERASE 16.0 U/L (15-37); TOTAL PROTEIN, SERUM 7.7 g/dL (6.4-8.2)
[2024-12-07] MEDS: IV NS 0.9% 500 ML IV ONE (10:10)
[2024-12-07] MEDS: REMDESIVIR (CHARGED) 200 MG, *LOADING DOSE 1 EA in IV NS 0.9% 210 ML IV ONE (10:11)
[2024-12-07] MEDS: DABIGATRAN ETEXILATE MESYLATE 75 MG CAPSULE PO SCH (10:16)
[2024-12-07 12:00] VITALS: BP 124/70; TEMP 97.9; O2SAT 90
[2024-12-07] MEDS: INSULIN REGULAR, HUMAN 100 UNIT/ML 3 ML VIAL SQ PRN (12:37)
[2024-12-07 16:00] VITALS: BP_SYST 121; BP_SYST 124; BP_DIAS 68; TEMP 98.1; O2SAT 91
[2024-12-07] MEDS: K PHOS NEUTRAL 250 MG TABLET PO ONE (16:41)
[2024-12-07] MEDS ORDERED: APIXABAN 2.5 MG TABLET PO SCH (17:00)
[2024-12-07 20:00] VITALS: BP 119/68; TEMP 99.3; O2SAT 92
[2024-12-08] VITALS: BP 126/79; TEMP 98.2; O2SAT 92
[2024-12-08 04:00] VITALS: BP 151/89; TEMP 98.8; O2SAT 97
[2024-12-08 07:03] LABS: PLATELET COUNT (AUTO) 133 K/uL (150-450); RED BLOOD CELL COUNT(AUTO) 3.98 MIL/uL (4.5-6.0); RED CELL DISTRIBUTION WIDTH 14.3 % (11.5-15.0); WHITE BLOOD COUNT (AUTO) 10.4 K/uL (4.3-11.0)
[2024-12-08 07:40] LABS: ASPARTATE AMINOTRANSFERASE 16.0 U/L (15-37); CALCIUM, SERUM 8.3 mg/dL (8.5-10.1); CREATININE 1.2 mg/dL (0.6-1.3); PHOSPHORUS 3.0 mg/dL (2.5-4.9); SODIUM SERUM 145.0 mmol/L (136-145); TOTAL PROTEIN, SERUM 7.3 g/dL (6.4-8.2); UREA NITROGEN, BLOOD 31.0 mg/dL (7-18)
[2024-12-08 08:05] LABS: CREATINE KINASE, TOTAL 369.0 U/L (39-308)
[2024-12-08] MEDS: dexaMETHasone SOD PHOSPHATE 10 MG/ML VIAL IV SCH (09:00)
[2024-12-08] MEDS: VANCOMYCIN HCL 1.25 GM in IV D5W 250 ML IV SCH (09:06)
[2024-12-08] MEDS: IV NS 0.9% 1,000 ML IV ONE (10:02)
[2024-12-08] MEDS: REMDESIVIR (CHARGED) 100 MG in IV NS 0.9% 80 ML IV SCH (10:02)
[2024-12-08 13:27] VITALS: BP 141/78; TEMP 97.9; O2SAT 96
[2024-12-08 16:00] VITALS: BP 121/72; TEMP 97.8; O2SAT 96
[2024-12-08 20:00] VITALS: BP 127/67; TEMP 98.2; O2SAT 95
[2024-12-09] VITALS: BP 125/82; TEMP 97.7; O2SAT 97
[2024-12-09 04:00] VITALS: BP 150/81; TEMP 97.7; O2SAT 97
[2024-12-09 07:22] LABS: PLATELET COUNT (AUTO) 138 K/uL (150-450); RED BLOOD CELL COUNT(AUTO) 4.03 MIL/uL (4.5-6.0); RED CELL DISTRIBUTION WIDTH 14.3 % (11.5-15.0); WHITE BLOOD COUNT (AUTO) 9.6 K/uL (4.3-11.0)
[2024-12-09 07:40] LABS: ASPARTATE AMINOTRANSFERASE 13.0 U/L (15-37); ASPARTATE AMINOTRANSFERASE 20.0 U/L (15-37); CALCIUM, SERUM 8.7 mg/dL (8.5-10.1); CREATININE 1.1 mg/dL (0.6-1.3); PHOSPHORUS 3.3 mg/dL (2.5-4.9); PHOSPHORUS 3.4 mg/dL (2.5-4.9); SODIUM SERUM 142.0 mmol/L (136-145); TOTAL PROTEIN, SERUM 7.3 g/dL (6.4-8.2); TOTAL PROTEIN, SERUM 7.4 g/dL (6.4-8.2); UREA NITROGEN, BLOOD 33.0 mg/dL (7-18)
[2024-12-09 08:00] VITALS: BP 114/58; TEMP 98.1; O2SAT 99
[2024-12-09 08:09] LABS: PTH, INTACT 25 pg/mL (15-65)
[2024-12-09] MEDS: ENOXAPARIN SODIUM 60 MG/0.6 ML DISP.SYRIN SQ SCH (09:43)
[2024-12-09 12:00] VITALS: BP 136/69; TEMP 97.1; O2SAT 96
[2024-12-09 16:00] VITALS: BP 121/62; TEMP 98.1; O2SAT 99
[2024-12-09 20:00] VITALS: BP_SYST 111; BP_SYST 121; BP_DIAS 62; BP_DIAS 80; TEMP 97.5; O2SAT 97
[2024-12-10] VITALS: BP 134/71; TEMP 97.8; O2SAT 94
[2024-12-10 04:00] VITALS: BP 128/78; TEMP 98.5; O2SAT 95
[2024-12-10 07:30] LABS: PLATELET COUNT (AUTO) 142 K/uL (150-450); RED BLOOD CELL COUNT(AUTO) 4.00 MIL/uL (4.5-6.0); RED CELL DISTRIBUTION WIDTH 14.7 % (11.5-15.0); WHITE BLOOD COUNT (AUTO) 9.5 K/uL (4.3-11.0)
[2024-12-10 08:00] VITALS: BP 125/65; TEMP 97.5; O2SAT 95
[2024-12-10 09:05] LABS: ASPARTATE AMINOTRANSFERASE 20.0 U/L (15-37); PHOSPHORUS 3.5 mg/dL (2.5-4.9)
[2024-12-10 09:20] LABS: TOTAL PROTEIN, SERUM 6.9 g/dL (6.4-8.2)
[2024-12-10 09:27] LABS: CALCIUM, SERUM 8.6 mg/dL (8.5-10.1); CREATININE 1.1 mg/dL (0.6-1.3); SODIUM SERUM 141.0 mmol/L (136-145); UREA NITROGEN, BLOOD 37.0 mg/dL (7-18)
[2024-12-10 14:00] VITALS: BP 103/56; TEMP 98.1; O2SAT 96
[2024-12-10] MEDS: CYANOCOBALAMIN 500 MCG TABLET PO SCH (14:11)
[2024-12-10] MEDS: FOLIC ACID 1 MG TABLET PO SCH (14:11)
[2024-12-10 16:00] VITALS: BP 129/62; TEMP 98.3; O2SAT 94
[2024-12-10 20:00] VITALS: BP 110/62; TEMP 98.4; O2SAT 91
[2024-12-11] VITALS: BP 126/64; TEMP 97.7; O2SAT 93
[2024-12-11 01:09] LABS: IRON, SERUM 50 ug/dl (50-175)
[2024-12-11 08:00] VITALS: BP 105/51; TEMP 97.5; O2SAT 95
[2024-12-11 08:09] LABS: CALCIUM, SERUM 7.8 mg/dL (8.5-10.1); CREATININE 1.1 mg/dL (0.6-1.3); SODIUM SERUM 142.0 mmol/L (136-145); UREA NITROGEN, BLOOD 33.0 mg/dL (7-18)
[2024-12-11 08:23] LABS: ASPARTATE AMINOTRANSFERASE 17.0 U/L (15-37); PHOSPHORUS 2.7 mg/dL (2.5-4.9); TOTAL PROTEIN, SERUM 6.7 g/dL (6.4-8.2)
[2024-12-11] MEDS: PYRIDOXINE HCL 50 MG TABLET PO SCH (09:04)
[2024-12-11 11:43] LABS: PLATELET COUNT (AUTO) 149 K/uL (150-450); RED BLOOD CELL COUNT(AUTO) 4.19 MIL/uL (4.5-6.0); RED CELL DISTRIBUTION WIDTH 14.5 % (11.5-15.0); WHITE BLOOD COUNT (AUTO) 8.8 K/uL (4.3-11.0)
[2024-12-11 12:00] VITALS: BP 98/52; TEMP 97.8; O2SAT 94
[2024-12-11] MEDS: POTASSIUM CHLORIDE 20 MEQ TAB.PRT.SR PO SCH (12:18)
[2024-12-11 16:00] VITALS: BP 136/73; TEMP 97.6; O2SAT 95
[2024-12-11] MEDS: DABIGATRAN ETEXILATE MESYLATE 75 MG CAPSULE PO SCH (16:43)
[2024-12-11 20:00] VITALS: BP 121/60; TEMP 97.9; O2SAT 95
[2024-12-12] VITALS: BP 140/65; TEMP 97.7; O2SAT 94
[2024-12-12 04:00] VITALS: BP 142/64; TEMP 97.9; O2SAT 95
[2024-12-12 07:58] LABS: CALCIUM, SERUM 7.9 mg/dL (8.5-10.1); CREATININE 1.0 mg/dL (0.6-1.3); SODIUM SERUM 143.0 mmol/L (136-145); UREA NITROGEN, BLOOD 27.0 mg/dL (7-18)
[2024-12-12 08:00] VITALS: BP 132/60; TEMP 97.8; O2SAT 99
[2024-12-12 08:10] LABS: ASPARTATE AMINOTRANSFERASE 15.0 U/L (15-37); PHOSPHORUS 2.7 mg/dL (2.5-4.9); TOTAL PROTEIN, SERUM 7.0 g/dL (6.4-8.2)
[2024-12-12 08:19] LABS: PLATELET COUNT (AUTO) 169 K/uL (150-450); RED BLOOD CELL COUNT(AUTO) 4.43 MIL/uL (4.5-6.0); RED CELL DISTRIBUTION WIDTH 15.1 % (11.5-15.0); WHITE BLOOD COUNT (AUTO) 9.1 K/uL (4.3-11.0)
[2024-12-12 09:01] VITALS: BP 139/50
[2024-12-12] MEDS ORDERED: CEFE2FRO IV (10:49)
[2024-12-12] MEDS ORDERED: DEXA6TAB6 PO (10:49)
== END 2024-12-12 14:26 | DRG 871 ==
LOC: ER 00:23 → TELE1 02:01 → MEDSG1 12-12 09:53
PROVIDERS: ADMIT Nurse Practitioner Family; ATTEND Nurse Practitioner Family
PROC: XW033E5 Introduction of Remdesivir Anti-infective into Peripheral Vein, Percutaneous Approach, New Technology Group 5 (ICD-10-PCS; principal; 2024-12-07)
DX: A41.89 Other specified sepsis (principal); J15.69 Pneumonia due to other Gram-negative bacteria; U07.1 COVID-19; J69.0 Pneumonitis due to inhalation of food and vomit; J96.01 Acute respiratory failure with hypoxia; E44.1 Mild protein-calorie malnutrition; I50.32 Chronic diastolic (congestive) heart failure; N17.9 Acute kidney failure, unspecified; I13.0 Hypertensive heart and chronic kidney disease with heart failure and stage 1 through stage 4 chronic kidney disease, or unspecified chronic kidney disease; I69.354 Hemiplegia and hemiparesis following cerebral infarction affecting left non-dominant side; J44.0 Chronic obstructive pulmonary disease with (acute) lower respiratory infection; D64.9 Anemia, unspecified; E78.5 Hyperlipidemia, unspecified; E88.09 Other disorders of plasma-protein metabolism, not elsewhere classified; I25.10 Atherosclerotic heart disease of native coronary artery without angina pectoris; R13.10 Dysphagia, unspecified; Z79.01 Long term (current) use of anticoagulants; Z86.718 Personal history of other venous thrombosis and embolism; Z86.711 Personal history of pulmonary embolism; N18.9 Chronic kidney disease, unspecified; E11.22 Type 2 diabetes mellitus with diabetic chronic kidney disease; Z68.22 Body mass index [BMI] 22.0-22.9, adult; E83.9 Disorder of mineral metabolism, unspecified; E86.9 Volume depletion, unspecified; Z87.01 Personal history of pneumonia (recurrent)
CPT/HCPCS: 36415; 36600; 71045-TC; 76770-TC; 80048-TC; 80053-TC; 80076-TC; 80202-TC; 82550-TC; 82553; 82728-TC; 82803-TC; 82962-TC; 83540-TC; 83605-TC; 83735-TC; 83880; 83970; 84100-TC; 84155; 84165; 84484-TC; 85025-TC; 85378-TC; 85730-TC; 86140-TC; 87040-TC; 87081-TC; 93307-TC; 93970-TC; 97110-TC; 97112-TC; 97530-TC; A4216; A4223; G0378; J0692; J1100; J1650; J1815; J2048; J3373; J7030; J7040; J7050; J7060